=== PATIENT | female | born 1940 | race Caucasian/White ===

== ENCOUNTER 2019-11-05 13:46 | Outpatient (CLI) | payer MEDICARE, SELFPAY ==
--- NOTE | 2019-11-05 14:00 | MM_ITS ---
WS: [id number] BILATERAL DIGITAL SCREENING MAMMOGRAPHY WITH CAD CLINICAL INFORMATION: SCREEN HISTORY: Screening mammogram. No current complaints. COMPARISON: August 22, 2018 TECHNIQUE: Bilateral CC and MLO views. FINDINGS: Scattered fibroglandular densities bilaterally. No suspicious focal mass, asymmetry, calcifications, or architectural distortion. No evidence of malignancy. Benign calcification right breast. MM/[place] [id number] IMPRESSION: BI-RADS: 2-Benign FOLLOW UP: 1 Year Follow-up Recommend return to annual screening mammography.
== END 2019-11-05 13:47 | disposition home or self-care (01) ==
LOC: RADSHAW 13:53
PROVIDERS: PCP Family Medicine; Visit Provider Family Medicine
DX: Z12.31 Encounter for screening mammogram for malignant neoplasm of breast (principal)
CPT/HCPCS: 77067

== ENCOUNTER 2021-06-16 10:34 | Emergency (ER) | payer MEDICARE, SELFPAY ==
[2021-06-16 10:43] VITALS: BP 152/63; PULSE 75; RESP 15; O2SAT 98; BMI 24.4
--- NOTE | 2021-06-16 10:45 | ECG_ITS ---
[facility] Test Date: 2021-06-16 Pat Name: Sole Luna Department: Room: Gender: Female Genetics Physician: : [id number] Requested By: Romie Anders Order Number: [id number] Ernie MD: Em Núñez M.D. Measurements Intervals [place] Rate: 66 P: 24 MO: 126 QRS: -20 QRSD: 93 T: 15 QT: 377 QTc: 395 Interpretive Statements SINUS RHYTHM LOW QRS VOLTAGE IN PRECORDIAL LEADS [QRS DEFLECTION < 1.0 mV IN CHEST LEADS] INCOMPLETE RIGHT BUNDLE BRANCH BLOCK [90+ ms QRS DURATION, TERMINAL R IN V1/V2, 40+ ms S IN I/aVL/V4/V5/V6] MODERATE VOLTAGE CRITERIA FOR LVH, CONSIDER NORMAL VARIANT [MEETS CRITERIA IN ONE OF: R(aVL), S(V1), R(V5), R(V5/V6)+S(V1)] POSSIBLE ANTERIOR MYOCARDIAL INFARCTION , PROBABLY OLD [30 ms Q WAVE IN V3/V4, OR R < 0.2 mV IN V4] Compared to ECG 10/14/2014 13:40:15 Myocardial infarct finding now present Electronically Signed On 06-17-2021 7:33:43 REFRACTORY SPECIALIST by Em Núñez M.D. [id number]
--- NOTE | 2021-06-16 10:45 | XR_ITS ---
WS: [id number] XR shoulder RT min 2V* [id number] REASON FOR EXAM: pain FINDINGS: There is a deformity of the distal most right clavicle which may represent an old healed fracture. Cl inical correlation should be made. No significant arthropathic change in the acromioclavicular joints for age. A severe arthropathy is present in the glenohumeral joint with flattening of the medial margin of the humeral head and widening and splaying of the glenoid. There is extensive subchondral sclerosis and cystic change in the glenoid and humeral head. XR/XR shoulder RT min 2V* [id number] IMPRESSION: Abnormality of the distal right clavicle as above. Severe osteoarthritis of the right glenohumeral joint.
--- NOTE | 2021-06-16 10:45 | ED_ITS ---
HPI - General Adult General: Chief complaint: General Medical Stated complaint: R SIDE SHOULER & JAW PAIN Time Seen by Provider: 06/16/21 10:44 History of Present Illness: HPI narrative: 80-year-old female presents emergency room complaining of right shoulder pain states began in the scapula radiates up into the shoulder up into her neck and jaw at times and a little bit down her proximal humerus. Is mostly resolved now is reproducible with movement of the shoulder. Particularly when you AB duct or flex the shoulder. She cannot recall any trauma she has not had any heavy use of the shoulder recently. She has no known history of heart disease she has no associated shortness of breath chest pain nausea vomiting or diaphoresis with this episode. It began suddenly after she had been at the [employer] shop and then resolved she states it feels like a little achy now with attempts to move the shoulder through range of motion it is very reproducible. Onset (ago): minute(s) Location: right (Shoulder) Radiation: neck and proximal (Humerus) Severity: mild Quality: aching Pain Consistency: intermittent and now resolved Relieving factors: immobilization Exacerbating factors: movement Associated symptoms: Deny chest pain, confusion, cough, diaphoresis, decreased appetite, dyspnea, fevers/chills, headache(s), malaise, nausea, rash, palpitations, seizures, short of breath, syncope, vomiting or weakness Treatments prior to arrival: none Review of Systems Const: Denies: malaise or diaphoresis ENMT: Denies: throat pain, ear or mastoid pain, nasal discharge or nasal congestion Card: Denies: chest pain, palpitations or syncope Resp: Denies: dyspnea GI: Denies: nausea or vomiting : Denies: flank pain, difficulty voiding, dysuria, urinary frequency or urinary urgency Skin/Breast: Denies: rash Neuro: Denies: headache(s) or confusion PFS ED PFSH: Medical History (Updated 06/16/21 @ 11:37 by Romie Gramajo DO) Arthritis History of osteomyelitis Hypertension Thyroid disease Surgical History History of bladder repair surgery History of hysterectomy Family History Other Cancer Dementia Denies family history of Diabetes CAD (coronary artery disease) Clotting disorder Hyperlipidemia Psychiatric illness Chronic kidney disease (CKD) Suicide Anesthesia complication Bleeding disorder Family history of premature coronary artery disease Lung disease Hypertension Stroke Social History Second hand smoke exposure: No Alcohol intake: never Lives independently: Yes Household members: spouse Marital status: Current occupational status: retired Physical Exam Const: COMMON NORMALS: no acute distress GENERAL APPEARANCE: cooperative and comfortable ORIENTATION/CONSCIOUSNESS: Yes awake, Yes oriented to person, Yes oriented to place and Yes oriented to time HENMT: COMMON NORMALS: normocephalic, atraumatic and hearing grossly normal bilaterally HEAD & SCALP: normocephalic and atraumatic Neck/C-Spine: COMMON NORMALS: no JVD Resp: COMMON NORMALS: normal respiratory effort, No retractions, No use of accessory muscles and clear to auscultation bilaterally AUSCULTATION: clear to auscultation bilaterally Cardio: COMMON NORMALS: no JVD, regular rate, regular rhythm and No murmurs present (Cardio) RATE: regular rate RHYTHM: regular rhythm GI: COMMON NORMALS: Soft to palpation and No hepatosplenomegaly present AUSCULTATION: Yes normoactive bowel sounds PALPATION: Yes Soft to palpation, No Tenderness to palpation present (GI), No Guarding due to palpation present (GI) and Yes No hepatosplenomegaly present Extremity: COMMON NORMALS: normal to inspection, capillary refill normal, no clubbing, cyanosis or edema, no calf tenderness and no pedal edema Neuro: SENSORIUM/ORIENTATION: Yes oriented to person, Yes oriented to place and Yes oriented to time Skin: COMMON NORMALS: no rashes or lesions noted GENERAL SKIN EXAM: no rashes or lesions noted Course Vital Signs: Vital signs: Vital Signs Pulse Rate 66 06/16/21 12:03 Respiratory Rate 14 06/16/21 12:03 Blood Pressure 125/59 06/16/21 12:03 Pulse Oximetry 97 06/16/21 12:03 MDM - General Adult MDM Narrative: Medical decision making narrative: No acute fractures noted on the shoulder x-ray. There is significant arthritic changes and question of an old fracture in the medial aspect of the clavicle. She does not have any pain in that region at this time. [place] discharge her home encouraged her to use Aloxi cam she was previously prescribed follow-up with your primary care doctor through the office for further evaluation including potential advanced imaging or referral to Ortho as indicated. Discharge Plan Discharge Patient Disposition: Home Clinical Impression: Right shoulder pain Condition: Stable Prescriptions: No Action meloxicam 7.5 mg tablet 7.5 mg PO DAILY RF: 0 levothyroxine 50 mcg capsule 50 mcg PO DAILY RF: 0 pentoxifylline 400 mg tablet extended release 400 mg PO TID RF: 0 acetaminophen-codeine [Tylenol-Codeine #4] 300-60 mg tablet 1 tab PO BID RF: 0 lisinopril-hydrochlorothiazide 20-25 mg tablet 1 tab PO DAILY RF: 0 donepezil 5 mg tablet 5 mg PO DAILY RF: 0 triamcinolone acetonide 0.1 % cream 1 applic topical BID 30 Days Qty: 454 RF: 5 Discharge Orders: Discharge ED (Routine); Ordered 06/16/21 Ordered By: Romie Gramajo Referrals: Brian Norris MD [Primary Care Provider] - Discharge Diet: Usual diet Discharge Activity: Limit activity as instructed Patient Instructions: Opioid Safety Activity Restrictions/Additional Instructions: If shoulder pain persists follow-up with your primary care doctor for further evaluation. 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
[2021-06-16 12:03] VITALS: BP 125/59; PULSE 66; RESP 14; O2SAT 97
== END 2021-06-16 12:00 | disposition home or self-care (01) ==
PROVIDERS: Emergency Provider Family Medicine; PCP Family Medicine
DX: M25.511 Pain in right shoulder (principal); Z79.891 Long term (current) use of opiate analgesic
CPT/HCPCS: 73030; 93005; 99283

== ENCOUNTER → 2022-04-05 10:14 | Outpatient (BNVA) | payer MEDICARE, SELFPAY | PROVIDERS: PCP Family Medicine; Visit Provider Physician Assistant | DX: M17.0 Bilateral primary osteoarthritis of knee (principal) | CPT/HCPCS: 20610; 73560; 73565; 99203; 99204; J0702; J3490 ==

== ENCOUNTER → 2022-05-10 10:30 | Outpatient (BNVA) | payer MEDICARE, SELFPAY | PROVIDERS: PCP Family Medicine; Visit Provider Physician Assistant | DX: M17.0 Bilateral primary osteoarthritis of knee (principal) | CPT/HCPCS: 20610; 99213; J7318 ==

== ENCOUNTER → 2022-12-24 08:20 | Outpatient (BNVA) | payer MEDICARE, SELFPAY | PROVIDERS: PCP Family Medicine; Visit Provider Podiatrist Foot & Ankle Surgery | DX: I73.9 Peripheral vascular disease, unspecified (principal); L60.8 Other nail disorders; I87.2 Venous insufficiency (chronic) (peripheral); L60.2 Onychogryphosis | CPT/HCPCS: 11721 ==

== ENCOUNTER → 2022-12-28 10:14 | Outpatient (BNVA) | payer MEDICARE, SELFPAY | PROVIDERS: PCP Family Medicine; Visit Provider Student in an Organized Health Care Education/Training Program | DX: M17.11 Unilateral primary osteoarthritis, right knee (principal) | CPT/HCPCS: 73560; 73565; 99204 ==

== ENCOUNTER → 2023-01-28 17:10 | Outpatient (BNVA) | payer MEDICARE, SELFPAY | PROVIDERS: PCP Family Medicine; Visit Provider Student in an Organized Health Care Education/Training Program | DX: Z01.812 Encounter for preprocedural laboratory examination; M17.11 Unilateral primary osteoarthritis, right knee | CPT/HCPCS: 36415; 80053; 81001; 85025; 99214 ==

== ENCOUNTER 2023-02-11 14:56 | Outpatient (CLI) | payer MEDICARE, SELFPAY ==
--- NOTE | 2023-02-11 15:00 | CT_ITS ---
WS: [id number] CT RIGHT KNEE, NONCONTRAST TECHNIQUE: Noncontrast CT of the RIGHT knee to include the RIGHT hip and ankle. CLINICAL INFORMATION: DJD KNEE DLP: 991.[address] scans at [facility] use at least one of these dose optimization techniques: automated e xposure control; mA and/or kV adjustment per patient size (includes targeted exams where dose is matc hed to clinical indication); or iterative reconstruction. FINDINGS: Osteopenia. Moderate degenerative narrowing of both hips with hypertrophic changes right greater than left. Degenerative arthritis sacroiliac joints. A few slightly prominent inguinal lymph nodes likely reactive. Large right suprapatellar effusion. Advanced tricompartmental arthritis right knee with xlil-gt-wpvd articulation in the medial joint compartment. Subchondral sclerosis. Hypertrophic changes along the j oint line. Chondrocalcinosis. Hypertrophic patella. Lobulated popliteal cyst measuring 3.1 AP by 4.7 cm transverse. Vascular calcification. IMPRESSION: Images obtained for preoperative purposes.
== END 2023-02-11 14:57 | disposition home or self-care (01) ==
PROVIDERS: PCP Family Medicine; Visit Provider Student in an Organized Health Care Education/Training Program
DX: M17.11 Unilateral primary osteoarthritis, right knee (principal)
CPT/HCPCS: 73700

== ENCOUNTER 2023-02-22 16:05 | Outpatient (CLI) | payer MEDICARE, SELFPAY ==
[2023-02-22 16:15] LABS: Basophils # 0.1 10^3/uL (0.0-0.1); Basophils % 2.3 %; Eosinophils # 0.2 10^3/uL (0.0-0.8); Eosinophils % 3.1 %; Lymphocytes # 1.9 10^3/uL (0.8-4.8); Lymphocytes % 39.1 %; Mean Corpuscular HGB Conc 32.4 g/dL (30-55); Mean Corpuscular Hemoglobin 32.4 pg (27-33); Mean Platelet Volume 10.8 fL (7.4-10.4); Monocytes # 0.6 10^3/uL (0.2-0.9); Monocytes % 12.3 %; Neutrophils # 2.06 10^3/uL (1.8-7.7); Neutrophils % 42.4 %; Nucleated Red Blood Cells % 0.8 %; Platelet Count 348 10^3/cmm (157-399); Red Cell Distribution Width 19.7 % (12.1-15.1); White Blood Count 4.86 10^3/uL (3.29-11.43)
== END 2023-02-22 16:06 | disposition home or self-care (01) ==
PROVIDERS: PCP Family Medicine; Visit Provider Family Medicine
DX: Z01.89 Encounter for other specified special examinations (principal)
CPT/HCPCS: 85025

== ENCOUNTER 2023-03-25 13:02 | Outpatient (CLI) | payer MEDICARE, SELFPAY ==
--- NOTE | 2023-03-25 13:07 | XR_ITS ---
WS: [id number] SCREENING DEXA SCAN Jinni CLINICAL INFORMATION: POSTMENOPAUSAL COMPARISON: 2019 FINDINGS: The L1-L4 bone mineral density measures 1.180 g/cm2. This corresponds to a T score score of 0.0 and Z score of 1.8. Left femoral neck bone mineral density measures 0.703 g/cm2. This corresponds to a T score of -2.4 an d Z score of -0.4. Right femoral neck bone mineral density measures 0.647 g/cm2. This corresponds to a T score -2.9of an d Z score of -0.8. Mean femoral neck bone mineral density measures 0.675 g/cm2. This corresponds to a T score of -2.6 an d Z score of -0.6. IMPRESSION: Normal bone mineralization lumbar spine although likely spuriously elevated due to endplate sclerosis . Osteoporosis femoral necks at the lower end of the range. Patient's FRAX calculated 10 year probability for major osteoporotic fracture is 40.6% and osteoporot ic hip fracture is 30.0%. Bone mineral density lumbar spine increased 9.7% since 2019 although likely spuriously elevated due t o endplate sclerosis Bone mineral density femoral necks decreased -13.6%
== END 2023-03-25 13:03 | disposition home or self-care (01) ==
PROVIDERS: PCP Family Medicine; Visit Provider Family Medicine
DX: Z13.820 Encounter for screening for osteoporosis (principal); Z78.0 Asymptomatic menopausal state; M81.0 Age-related osteoporosis without current pathological fracture
CPT/HCPCS: 77080

== ENCOUNTER → 2023-04-22 08:09 | Outpatient (BNVA) | payer MEDICARE, SELFPAY | PROVIDERS: PCP Family Medicine; Visit Provider Podiatrist Foot & Ankle Surgery | DX: L60.8 Other nail disorders (principal); L60.2 Onychogryphosis; I73.9 Peripheral vascular disease, unspecified | CPT/HCPCS: 11721 ==

== ENCOUNTER 2023-04-26 13:39 | Outpatient (CLI) | payer MEDICARE, SELFPAY ==
--- NOTE | 2023-04-26 14:30 | CT_ITS ---
WS: [id number] CT RIGHT KNEE, NONCONTRAST DESMOND TECHNIQUE: Noncontrast CT of the RIGHT knee to include the RIGHT hip and ankle. CLINICAL INFORMATION: M17.11 - Unilateral primary osteoarthritis, right knee COMPARISON: CT 02/11/2023 DLP: 952.[address] scans at [facility] use at least one of these dose optimization techniques: automated e xposure control; mA and/or kV adjustment per patient size (includes targeted exams where dose is matc hed to clinical indication); or iterative reconstruction. FINDINGS: Osteopenia. Moderate degenerative arthritis both hips RIGHT greater than LEFT. Hypertrophic changes about the RIGHT hip. Normal pubic rami. A few sigmoid diverticuli. A few prominent inguinal lymph nodes likely reactive similar to previous. Large suprapatellar effusion. Chondrocalcinosis. Hypertrophic patella. Advanced arthritis RIGHT knee worse in the medial joint compartment with ktyd-vs-ahpn articulation. Hypertrophic change along the j oint line. Lobulated popliteal cyst measuring 5.4 x 3.1 cm. Vascular calcification. IMPRESSION: Images obtained for preoperative purposes.
== END 2023-04-26 13:40 | disposition home or self-care (01) ==
LOC: RAD 13:39
PROVIDERS: PCP Family Medicine; Visit Provider Student in an Organized Health Care Education/Training Program
DX: M17.11 Unilateral primary osteoarthritis, right knee (principal)
CPT/HCPCS: 73700

== ENCOUNTER 2023-05-06 15:48 | Observation (INO) | payer MEDICARE, SELFPAY ==
[2023-05-06] VITALS (16 sets, daily range): BP systolic 135–166; BP diastolic 62–88; PULSE 61–99; RESP 15–24; TEMP 36.1–37.3; O2SAT 93–100; BMI 23.3
[2023-05-06] MEDS: sodium chloride 0.9% 1,000 ML 30 ML IV (10:21)
[2023-05-06] MEDS: ketorolac 30 mg/mL INJ IVP (10:22)
[2023-05-06] MEDS: acetaminophen 1,000 MG/100 ML PIGGYBACK 400 MG IV ×2 (10:24→18:12)
[2023-05-06 10:38] LABS: Basophils # 0.1 10^3/uL (0.0-0.1); Basophils % 1.7 %; Eosinophils % 0.5 %; Hematocrit 30.8 % (36-47); Lymphocytes # 1.8 10^3/uL (0.8-4.8); Lymphocytes % 29.1 %; Mean Corpuscular HGB Conc 33.1 g/dL (30-55); Mean Corpuscular Hemoglobin 32.3 pg (27-33); Mean Corpuscular Volume 97.5 fl (85-98); Monocytes # 0.4 10^3/uL (0.2-0.9); Monocytes % 6.5 %; Neutrophils # 3.72 10^3/uL (1.8-7.7); Neutrophils % 61.9 %; Nucleated Red Blood Cells % 0 %; Platelet Count 365 10^3/cmm (157-399); Red Blood Count 3.16 10^6/uL (3.85-5.65); Red Cell Distribution Width 19.1 % (12.1-15.1); White Blood Count 6.01 10^3/uL (3.29-11.43)
[2023-05-06 10:41] LABS: Blood Urea Nitrogen 12 mg/dL (8-23); Calcium 9.4 mg/dL (8.5-10.5); Carbon Dioxide 25 mmol/L (22-29); Chloride 100 mmol/L (98-107); Glucose 110 mg/dL (65-115); Osmolality Calculated 280 mOsm/kg (285-295); Sodium 135 mmol/L (136-145)
[2023-05-06 10:43] LABS: Anion Gap 14.6 (5-19); Potassium 4.6 mmol/L (3.5-5.1)
[2023-05-06 10:56] LABS: Blood Urine Neg (Negative); Glucose Urine UA Norm (Normal); Ketones Urine Negative (Negative); Nitrate Urine Negative (Negative); Protein Urine Neg (Negative); Urine Appearance Clear (CLEAR); Urine Color Yellow (Yellow); pH Urine 8 (5-7)
[2023-05-06 10:57] LABS: Add Urine Culture? No; Add Urine Microscopic? YES; Bacteria Urine TRACE /hpf; Bilirubin Urine Neg (Negative); Leukocyte Esterase Urine Trace (Negative); Sulfosalicylic Acid Urine Negative (Negative); Urobilinogen Urine Norm (Negative)
--- NOTE | 2023-05-06 12:40 | P.ANESASSM_ITS ---
Pre-Anesthetic Assessment Height/Weight: Height 1.65 m Weight 63.503 kg Temp Pulse Resp BP Pulse Ox O2 Del Method 99.2 F 88 16 147/78 95 Room Air 05/06/23 10:01 05/06/23 10:01 05/06/23 10:01 05/06/23 10:01 05/06/23 10:01 05/06/23 10:07 Preop Diagnosis: Right knee degenerative joint disease Operation Date: 05/06/23 11:30 Proposed Procedures p Satish Robot Total Knee Arthroplasty: RIGHT KNEE ARTHROPLASTY WITH SATISH GUIDANCE(Right) - Ben Davila DO Familial anesthetic complications: none Was Beta Keon taken within 24 hours: N/A Was Clonidine taken within 24 hours: N/A Last intake: Intake Last Liquid Date 05/05/23 Last Liquid Time 19:00 Last Solid Date 05/05/23 Last Solid Time 19:00 Social No alcohol and No tobacco Exam alert, oriented x 3, clear to auscultation bilaterally and regular rate & rhythm Airway Submandibular: within normal limits Cervical ROM: within normal limits Mallampati: Class II Dentition: partials CV/HEM Anemia, Hypertension and Peripheral Vascular Disease Metabolic Thyroid [place] [facility] [place] Osteoarthritis/DJD Neuropsych memory issues Anesthetic Plan ASA status: 3 Anesthesia: Regional (specify below) (SAB with adductor blk) Medications/Allergies Home Medications Medication Instructions Recorded Confirmed Last Taken Type lisinopril 20 1 tab PO DAILY 08/04/19 05/03/23 05/04/23 History mg-hydrochlorothiazide 25 mg tablet (Zestoretic) meloxicam 7.5 mg tablet 7.5 mg PO DAILY 08/04/19 05/06/23 05/05/23 History donepezil 10 mg tablet 10 mg PO DAILY 02/20/23 05/06/23 05/04/23 History gabapentin 300 mg capsule 300 mg PO TID 02/20/23 05/06/23 05/05/23 History levothyroxine 25 mcg tablet 25 mcg PO DAILY 02/20/23 05/06/23 05/05/23 History Allergies Allergy/AdvReac Type Severity Reaction Status Date / Time erythromycin base Allergy Mild ALGY-Rash Verified 04/22/23 08:14 [From Erythrocin] Sulfa (Sulfonamide Allergy Mild ALGY-Rash Verified 04/22/23 08:14 Antibiotics) terbinafine Allergy Mild ADR-Insomni Verified 04/22/23 08:14 a tramadol Allergy Mild Unknown Verified 04/22/23 08:14 adhesive tape AdvReac Mild ADR-Nausea Verified 04/22/23 08:14 clindamycin AdvReac Mild ADR-Diarrhe Verified 04/22/23 08:14 a naproxen [From Naprosyn] AdvReac Mild ADR-Nausea Verified 04/22/23 08:14 Penicillins AdvReac Mild ADR-Nausea Verified 04/22/23 08:14 Current Medications Generic Name Dose Route Start Last Admin Trade Name Freq PRN Reason Stop Dose Admin Sodium Chloride 1,000 mls @ 30 mls/hr 05/06/23 10:00 05/06/23 10:21 Sodium Chloride 0.9% IV 05/07/23 09:59 30 mls/hr .Q24H HANANE Administration PFSH Anesthesia Medical History (Updated 05/06/23 @ 07:55 by Jah Zafar MD) Arthritis History of osteomyelitis Hypertension Macrocytic anemia Memory difficulty Thyroid disease Surgical History History of bladder repair surgery History of hysterectomy Family History Other Cancer Dementia Denies family history of Diabetes CAD (coronary artery disease) Clotting disorder Hyperlipidemia Psychiatric illness Chronic kidney disease (CKD) Suicide Anesthesia complication Bleeding disorder Family history of premature coronary artery disease Lung disease Hypertension Stroke Social History Smoking and tobacco/nicotine status: never used tobacco/nicotine Second hand smoke exposure: No Alcohol intake: never Substance/Drug Use: never Lives independently: Yes Household members: spouse Marital status: Current occupational status: retired Data Anesthesia 05/06/23 10:08 05/06/23 10:08 Short CBC 05/06/23 Range/Units 10:08 WBC 6.01 (3.29-11.43) 10^3/uL Hgb 10.20 L (11.27-16.99) g/dL Hct 30.8 L (36-47) % MCV 97.5 (85-98) fl Plt Count 365 (157-399) 10^3/cmm Neut % (Auto) 61.9 % Neut # (Auto) 3.72 (1.8-7.7) 10^3/uL BMP 05/06/23 10:08 Sodium 135 L Potassium 4.6 Chloride 100 Carbon Dioxide 25 BUN 12 Creatinine 0.8 Glucose 110 Calcium 9.4 Urine 05/06/23 Range/Units 09:55 Urine Color Yellow (Yellow) Urine Appearance Clear (CLEAR) Urine pH 8 H (5-7) Ur Specific [place] 1.010 (1.005-1.030) Urine Protein Neg (Negative) Urine Glucose (UA) Norm (Normal) Urine Ketones Negative (Negative) Urine Nitrate Negative (Negative) Urine Bilirubin Neg (Negative) Ur Leukocyte Esterase Trace H (Negative) Urine RBC None (0-2) /hpf Urine WBC 5-10 H (0-5) /hpf Blood Bank 05/06/23 10:09 Blood Type O Positive Rho(D) Type Positive Antibody Screen Negative Cardiac Studies: No Data to Display
[2023-05-06 12:51] LABS: Add Urine Microscopic? NO; Charge for UA Resulting for Rev
--- NOTE | 2023-05-06 12:52 | PC.NURSE ---
STRAIGHT CATH PERFORMED ON PT PER ORDERS. URINE COLLECTED AND SENT TO LAB. PT TOLERATED WELL, NO COMPLAINTS OF PAIN.
--- NOTE | 2023-05-06 13:13 | P.HP_ITS ---
Providers/Chief Complaint Admitting Physician: Ben Davila DO Primary Care Provider: Brian Norris MD Chief Complaint: 61562 M17.11 History of Present Illness Sole Luna is a 82 year old female presents today after being worked up in the outpatient setting for severe right knee degenerative joint disease. This point time she is here in the preoperative area with plan for undergoing a right total knee arthroplasty Satish robotic assisted she has been worked and c leared by her preoperative labs she has been medically optimized by her primary care provider. she has a clean UA with no urinary symptoms. At this point time she is ready to proceed with a right total knee arthroplasty. Denies any change in her overall health. Patient denies any fevers chills chest pain shortness of breath nausea or vomiting. Review of Systems General: Reports: 10 or more systems reviewed and unremarkable except in HPI and below Medications/Allergies Home Medications Medication Instructions Recorded Confirmed Last Taken Type lisinopril 20 1 tab PO DAILY 08/04/19 05/03/23 05/04/23 History mg-hydrochlorothiazide 25 mg tablet (Zestoretic) meloxicam 7.5 mg tablet 7.5 mg PO DAILY 08/04/19 05/06/23 05/05/23 History donepezil 10 mg tablet 10 mg PO DAILY 02/20/23 05/06/23 05/04/23 History gabapentin 300 mg capsule 300 mg PO TID 02/20/23 05/06/23 05/05/23 History levothyroxine 25 mcg tablet 25 mcg PO DAILY 02/20/23 05/06/23 05/05/23 History Allergies Allergy/AdvReac Type Severity Reaction Status Date / Time erythromycin base Allergy Mild ALGY-Rash Verified 04/22/23 08:14 [From Erythrocin] Sulfa (Sulfonamide Allergy Mild ALGY-Rash Verified 04/22/23 08:14 Antibiotics) terbinafine Allergy Mild ADR-Insomni Verified 04/22/23 08:14 a tramadol Allergy Mild Unknown Verified 04/22/23 08:14 adhesive tape AdvReac Mild ADR-Nausea Verified 04/22/23 08:14 clindamycin AdvReac Mild ADR-Diarrhe Verified 04/22/23 08:14 a naproxen [From Naprosyn] AdvReac Mild ADR-Nausea Verified 04/22/23 08:14 Penicillins AdvReac Mild ADR-Nausea Verified 04/22/23 08:14 PFSH Acute PFSH: Medical History (Updated 05/06/23 @ 07:55 by Jah Zafar MD) Arthritis History of osteomyelitis Hypertension Macrocytic anemia Memory difficulty Thyroid disease Surgical History History of bladder repair surgery History of hysterectomy Family History Other Cancer Dementia Denies family history of Diabetes CAD (coronary artery disease) Clotting disorder Hyperlipidemia Psychiatric illness Chronic kidney disease (CKD) Suicide Anesthesia complication Bleeding disorder Family history of premature coronary artery disease Lung disease Hypertension Stroke Social History Smoking and tobacco/nicotine status: never used tobacco/nicotine Second hand smoke exposure: No Alcohol intake: never Substance/Drug Use: never Lives independently: Yes Household members: spouse Marital status: Current occupational status: retired Vitals/I&O/Wt Last Vital Signs Temp 99.2 F 05/06/23 10:01 Pulse 88 05/06/23 10:01 Resp 16 05/06/23 10:01 BP 147/78 05/06/23 10:01 Pulse Ox 95 05/06/23 10:01 O2 Del Method Room Air 05/06/23 10:07 05/05/23 05/06/23 05/06/23 22:59 06:59 14:59 Intake Total 100 / 100 Balance 100 / 100 Weight last 48 hrs Weight 140 lb Physical Exam Narrative: Right knee Exam: ?ROM 15 to 120 degrees ?Patellar crepitus with ROM ?Medial joint line tenderness to palpation ?Lateral joint line tenderness to palpation ?Mild joint effusion ?Negative Angella's ?Negative Maximilian's ?15 degrees of Varus malalignment, correctable on exam ?Stable Varus and Valgus stress ?Gross motor sensory intact Resp: COMMON NORMALS: normal respiratory effort and No retractions Cardio: PERIPHERAL PULSES: dorsalis pedis present Data 05/06/23 10:08 05/06/23 10:08 A&P Assessment and plan (1) Right knee DJD: Qualifiers: Osteoarthritis type: primary Qualified Code(s): M17.11 - Unilateral primary osteoarthritis, right knee Plan N.p.o. since midnight Medically optimized by primary care provider Preoperative labs reviewed To proceed today to the OR for a right total knee arthroplasty Satish robotic assisted, will be admitted to the floor postoperatively. Attestations Medical Necessity Statement*: Status post right total knee arthroplasty Coding Level of Care Code Acute Code for Chg Fwd Diagnoses Right knee DJD M17.11 Osteoarthritis type: primary Time Spent (min) 45
[2023-05-06 13:36] LABS: Bilirubin Urine Neg (Negative); Blood Urine Neg (Negative); Glucose Urine UA Norm (Normal); Ketones Urine Negative (Negative); Leukocyte Esterase Urine Negative (Negative); Nitrate Urine Negative (Negative); Protein Urine Neg (Negative); Specific Gravity, Urine 1.005 (1.005-1.030); Urine Appearance Clear (CLEAR); Urine Color Yellow (Yellow); Urobilinogen Urine Norm (Negative); pH Urine 7 (5-7)
--- NOTE | 2023-05-06 13:43 | W.PM.OPSUD ---
Surgery/Procedure H&P Update DATE OF PROCEDURE: May 06, 2023 DATE H&P PERFORMED: 05/06/23 H&P UPDATE INFORMATION: I have reviewed H&P completed within last 30 days, I have examined patient prior to procedure and No changes to prior documentation CHANGES TO PREVIOUS DOCUMENTATION: Patient had new updated full H&P today. Overall patient's had been appropriately worked up for her anemia preoperatively and cleared by her primary care provider Dr. Norris at this point time she has been optimized we did get an updated UA today which ended up being clean on a second test that was straight catheterized. This point in time she has no urinary symptoms we talked about the ins and outs procedure risk benefits complication alternatives with surgery at this point in time she elects proceed with surgical intervention of a right total knee arthroplasty Satish robotic assisted. We will proceed with a right total knee arthroplasty today with admission of the to the hospital postoperatively for monitoring. PREOP DIAGNOSIS: Right knee degenerative joint disease PRIMARY INDICATION FOR PROCEDURE: Right knee degenerative joint disease PLANNED PROCEDURE: Operation Date: 05/06/23 11:30 Proposed Procedures p Satish Robot Total Knee Arthroplasty: RIGHT KNEE ARTHROPLASTY WITH SATISH GUIDANCE(Right) - Ben Davila DO
[2023-05-06] MEDS: ceFAZolin 2,000 MG in sodium chloride 0.9% (plus) 50 ML 100 MG IV ×2 (13:50→21:14)
[2023-05-06] MEDS: tranexamic acid 1,000 mg/10mL SDV 1000 MG IV (14:24)
--- NOTE | 2023-05-06 14:26 | ANES.PROC ---
Anesthesia Procedures Procedure/Date: 05/06/23 Nerve Block ^: Nerve Block 1: Main Anesthesia: spinal anesthesia block Time Out Performed: Yes Consent: requested by attending/covering physician, from patient, risks and benefits reviewed and patient agrees to proceed Nerve block location: adductor canal (right) Anesthesia monitors applied: pulse oximetry, EKG, BP cuff and oxygen Nerve block position: supine Anesthetic Used: ropivicaine 0.5% Amount of anesthesia used (mL): 20 Ultrasound used to: recognize landmarks Nerve Stimulator Used?: No Interscalene/Femoral BLK: 4 stimuplex 21 g needle used for position and inplane approach Injection: neg aspiration of heme Patient Tolerated Procedure: well Complications: none
[2023-05-06] MEDS: vancomycin 1,000 MG SDV 1000 MG XX (14:50)
[2023-05-06] MEDS: ROPivacaine 0.2% Premix 100 mL 200 MG INTRA-ARTI (14:50)
[2023-05-06] MEDS: ketorolac 30 mg/mL INJ XX (14:51)
[2023-05-06] MEDS: EPINEPHrine 1 mg/mL INJ XX (14:51)
[2023-05-06] MEDS: tranexamic acid 1,000 mg/10mL SDV 1000 MG XX (14:52)
--- NOTE | 2023-05-06 15:48 | W.PM.BPON ---
Date of Procedure: 05/06/2023 Surgeon: Ben Davila DO Line Production Cook(s): Pranav Davila PA-C Procedure(s) performed: Right total knee arthroplasty, Satish robotic assisted Findings of the procedure(s): Right knee degenerative joint disease and right total knee arthroplasty Satish robotic assisted surgery went as planned without complications Estimated blood loss: 25 cc Specimen(s) removed: Bone cuts from the femur and tibia and patella Post-operative diagnosis: Right knee degenerative joint disease
--- NOTE | 2023-05-06 15:50 | P.OP_ITS ---
Operative Report Date of procedure: May 06, 2023 Surgeon: Ben Davila DO Heater Mechanic: Pranav Davila PA-C: PA was necessary for execution and instrumentation of this case as well as to assist with retraction and protection of neurovascular structures and instrumentation and leg positioning. And assistance with wound closure Procedure: Preoperative diagnosis: Right knee severe degenerative joint disease post-op diagnosis: Same Procedure done: Right total knee arthroplasty, cemented?robotic assisted Satish Implants: [place] triathlon size 5 femur CR cemented right [place] triathlon size? 4 tibia universal baseplate cemented [place] triathlon symmetric patella size 36 mm Baron triathlon polyethylene 12mm Baron tibia stem 50 mm Surgeon: Ben Davila DO Estimated blood loss: 25 mL Tourniquet 67 minutes IV fluids: 1200 cc mL Urine output: 50mL Complications: None Condition: stable Disposition: floor Brief History: Patient is a 82-year-old female with with chronic right knee degenerative joint disease.? Patient has been worked up in the outpatient setting in the orthopedic office at this point time through shared decision making given [id number] ar thritis as well as failed conservative treatment, and pt would like to proceed with a right total knee arthroplasty.? Through shared decision making elected to proceed with surgical intervention for right total knee arthroplasty.? We talked about continued conservative treatment and surgical intervention as far as the risk benefits complications alternatives surgical and nonsurgical treatment opti ons.? At this point time understanding patient risks with surgery he agrees to proceed with surgical intervention.? Once again? risk with surgery include but are not limited to make it better make it worse blood clot, heart attack, stroke, on the table, infection, injury to nerves or vessels, persistent pain, arthrofibrosis, implant failure.? Understanding these risks patient agrees to proceed with surgical intervention consent was obtained in the office.? All questions answered. Procedure: Patient was seen and evaluated in the preoperative holding area.? Consent was reviewed and signed with patient with plan for right total knee arthroplasty.? All questions answered.? Correct extremity marked.? Patient seen and evaluated by the anesthesia department and once cleared for surgery was taken back to the operative suite.? Patient was placed into a supine position on the OR table.? All bony prominences were well-padded.? Patient was appropriately secured to the bed.? Patient underwent anesthesia per the anesthesia department.? Patient received spinal anesthesia and? Joy catheter was placed.? A nonsterile tourniquet was applied to the right thigh.? At this point in time a final timeout performed.? Patient received appropriate preoperative antibiotics and TXA. Next the right lower extremity was then prepped and draped in standard orthopedic fashion. Esmarch tourniquet was used exsanguinate the right lower extremity.? Tourniquet was insufflated to 250 mmHg. A standard anterior incision was made over midline of the knee.? Sharp scalpel excision through skin and subcutaneous tissue full-thickness skin flaps were made.? Fascia was elevated off of the extensor retinaculum was stable with medial parapatellar arthrotomy was then made.? The performed standard sequential releases.? Immediately on entry into the joint patient was found to have severe eburnated bone and tricompartmental arthritic changes noted.? With significant osteophyte formation.? Next the the patella was then stuffed and the knee was then flexed.?? Héctor was placed superiorly around the anterior aspect of the femur this was freed of synovium and I subsequently then placed by 2 femur pins to establish my femur arrays for the Satish robot.? These were then placed bicortically and? femur array was then appropriately secured with appropriate visualization.? Next attention was turned towards the tibial rays.? These were then drilled sequentially bicortically in parallel fashion and intraincisional.? I then placed my guide as well as my tibial array on in place.? This was appropriately secured and had excellent visualization with the Satish robot.? Next the tibial checkpoint as well as femur checkpoint were then placed.? At this point time I then subsequently established my head center as well as my medial lateral malleoli as well as my checkpoints.? Next utilizing standard Satish technology I then mapped out the appropriate points and confirmation points around the femur as well as the tibia in standard fashion.? Once this was then done I then removed all osteophytes in preparation for dynamic testing.? All osteophytes were removed as well as I removed the ACL and the PCL was excised due to its significant tearing and degeneration noted.? At this point time the knee was brought into full extension and we performed our standard evaluation of our gap balancing stressing his ligaments and extension as well as flexion appropriate adjustments were made to have appropriate gap balancing in both flexion and extension.? This plan for final counts.? We get a preoperative plan evaluating our implants which was a size 5femur and a size 4 tibia.? Next we brought in the Satish robot and sequentially made our femur cuts.? All excess bony cuts were then removed.? Finally we made our tibial cut.? Once this was done a standard PCL retractor was then placed into this position I excised the medial and lateral meniscus.? The tibial cut was then subsequently removed all excess bony debris was removed.? I then utilized a lamina mixer operator vacuum pan salt and remove the posterior osteophytes.? At this point time sized the tibia and confirmed this was a size 4.? I utilized our blunt probe to establish rotation of tibial implant.? Once this was done I then placed my tibia size 4 trial in appropriate position and then subsequently placed tibial pins to hold this into place placed a size 12 mm poly as well as a size 5 femur which was appropriately impacted in place knee was then subsequently brought into extension. 12 mm poly and this was stable with varus valgus stress in extension as well as had symmetrical translation when brought into flexion demonstrating symmetrical gaps. I had excellent balance gaps in flexion and extension with varus and valgus stresses.? At this point I was satisfied with these implants these were then verified and opened on the back table size 4 tibia, size 5 femur,? size 12 mm polythickness.? We did confirm appropriate gap balancing and stresses as well as alignment utilizing? Satish and were satisfied with this plan.? ?At this point time with my trials in place I then towel clip the patella everted this made appropriate measurements subsequently utilizing freehand technique performed by patellar resurfacing this was confirmed to be appropriate resection and subsequently sized to be a 36 mm symmetric.? My drill peg guides were then clamped and appropriate position and appropriate position in the patella for appropriate tracking and parallel with the joint.? Pegs were drilled trial implant was placed and the knee was then subsequently ranged and found to have excellent patellar tracking.? Femur pegs were then drilled.? Satisfied with our tibial placement rotation I then utilized the keel punch and prepped the tibia.? At this point time all of our trial implants were removed.? All checkpoints as well as guidepins and arrays were removed and appropriate counts made.? The wound bed? was thoroughly irrigated and dried and prepped for cementation.? Cement was mixed on the back table.? We did elect to use a small short stem on the tibia just given patient's age and soft bone quality. Once cement was ready this was then covered onto the tibia and the tibial baseplate was then impacted and all excess cement was removed.? Next the polyethylene was then impacted into place on the tibial baseplate.? Next cement was placed onto the femur as well as under the femur implants and impacted in to place and all excess cement was extruded and removed.? Knee was taken into full extension? to clear all excess cement was removed.? Warm saline was placed over the joint.? I then towel clip patella and dried for cementation. cemented the patella into place.? This was all clamped and the cement was allowed to cure.? Thorough irrigation performed with pulse lavage.? I then placed my periarticular injection while the cement was curing.? Once cured the knee was taken through range of motion and had excellent stability and gaps were balanced in flexion and extension.? Tourniquet was then deflated. hemostasis satisfactory with electrocautery. Vancomycin powder was placed. next I then subsequently closed the capsule with Ethibond suture as well as a running strata fix suture.? Knee was then taken through range of motion 30 times.? Next the skin was then closed in layered fashion of running stratifix sutures of deep and subcutenous tissue and skin.? ?closed in flexion and Prineo glue was then placed over the incision this allowed to cure.? Incision was covered with Silverlon, with ABDs soft roll and Gabe wrap.? Patient was then awakened from anesthesia and taken to PACU in stable condition. Disposition: Patient taken to PACU in stable condition will be admitted to the floor for pain control PT/OT weight-bear as tolerated right lower extremity dressing changes as needed, DVT prophylaxis. Pain control. Patient will receive appropriate postoperative antibiotics. patient will be seen today by the internal medicine team for medical management.? Patient will follow up with the office in 2 weeks.? Patient understands agrees with current plan.? All questions answered.
--- NOTE | 2023-05-06 16:18 | XRR_ITS ---
PROCEDURE INFORMATION: Exam: XR Right Knee Exam date and time: 05/06/2023 5:27 PM Age: 82 years old Clinical indication: Device placement; Joint replacement hardware; Prior surgery; Surgery date: Post-operative (0-2 days); Surgery type: Right tka; Additional info: Status post right tka, ap and lateral TECHNIQUE: Imaging protocol: Radiologic exam of the right knee. Views: 1 or 2 views. COMPARISON: CT knee RT DESMOND 04/26/2023 2:12 PM FINDINGS: Bones/joints: Sequela of recently placed right total knee arthroplasty in expected alignment. Soft tissues: Soft tissue swelling and gas along the anterior knee consistent with recent surgical procedure. XR/XR knee RT 1-2V [id number] IMPRESSION: Sequela of recent right total knee arthroplasty placement in expected alignment.
--- NOTE | 2023-05-06 16:27 | PM.PACU ---
PACU note Narrative: Patient is an 82-year-old female that just underwent a right total knee arthroplasty. Pt transferred to PACU in stable condition. Dressing is dry. pt is awake and alert. unable to assess sensation and motor of right lower extremity due to residual spinal anesthetic. Distal pulses are palpable toes are warm and well-perfused. Cap refill is normal and under 2 seconds. Pain is controlled. Exam: awake Disposition: admitted
--- NOTE | 2023-05-06 16:49 | P.CONIM_ITS ---
Providers/Reason For Consult Consulting Physician/Specialty*: ortho Reason for Consult*: medical managment Attending Physician: Ben Davila DO Primary Care Provider: Brian Norris MD History of Present Illness History of Present Illness Sole Luna is a 82 year old female with a past medical history of macrocytic anemia, hypertension, hypothyroidism, who presents to [facility] for right knee surgery, hospital stay was consulted for postoperative m anagement, hypertension, hypothyroidism, history of anemia, patient tells me that Dr. Norris has been working her up for anemia, she denies any bloody or black stools, no hemoptysis, no lightheadedness, dizziness, she tells her that she had a transfusion of blood when she was in her 20s, she never had any transfusions since then, she does not take any iron tablets, no history of iron deficiency anemia, she has never had a colonoscopy or an EGD in her life, denies a history of GI bleeds, denies history of strokes, no history of CAD, no chest pain, palpitations, no shortness of breath, abdominal pain, Review of Systems Const: Denies: fever(s) Card: Denies: chest pain Resp: Denies: dyspnea GI: Denies: abdominal pain Neuro: Denies: headache(s) Medications/Allergies Home Medications Medication Instructions Recorded Confirmed Last Taken Type lisinopril 20 1 tab PO DAILY 08/04/19 05/03/23 05/04/23 History mg-hydrochlorothiazide 25 mg tablet (Zestoretic) meloxicam 7.5 mg tablet 7.5 mg PO DAILY 08/04/19 05/06/23 05/05/23 History donepezil 10 mg tablet 10 mg PO DAILY 02/20/23 05/06/23 05/04/23 History gabapentin 300 mg capsule 300 mg PO TID 02/20/23 05/06/23 05/05/23 History levothyroxine 25 mcg tablet 25 mcg PO DAILY 02/20/23 05/06/23 05/05/23 History Allergies Allergy/AdvReac Type Severity Reaction Status Date / Time erythromycin base Allergy Mild ALGY-Rash Verified 04/22/23 08:14 [From Erythrocin] Sulfa (Sulfonamide Allergy Mild ALGY-Rash Verified 04/22/23 08:14 Antibiotics) terbinafine Allergy Mild ADR-Insomni Verified 04/22/23 08:14 a tramadol Allergy Mild Unknown Verified 04/22/23 08:14 adhesive tape AdvReac Mild ADR-Nausea Verified 04/22/23 08:14 clindamycin AdvReac Mild ADR-Diarrhe Verified 04/22/23 08:14 a naproxen [From Naprosyn] AdvReac Mild ADR-Nausea Verified 04/22/23 08:14 Penicillins AdvReac Mild ADR-Nausea Verified 04/22/23 08:14 Current Medications Generic Name Dose Route Start Last Admin Trade Name Freq PRN Reason Stop Dose Admin Sodium Chloride 1,000 mls @ 30 mls/hr 05/06/23 10:00 05/06/23 15:54 Sodium Chloride 0.9% IV 05/07/23 09:59 Infused .Q24H HANANE Infusion PFSH Acute PFSH: Medical History Arthritis History of osteomyelitis Hypertension Macrocytic anemia Memory difficulty Thyroid disease Surgical History History of bladder repair surgery History of hysterectomy Family History Other Cancer Dementia Denies family history of Diabetes CAD (coronary artery disease) Clotting disorder Hyperlipidemia Psychiatric illness Chronic kidney disease (CKD) Suicide Anesthesia complication Bleeding disorder Family history of premature coronary artery disease Lung disease Hypertension Stroke Social History Smoking and tobacco/nicotine status: never used tobacco/nicotine Second hand smoke exposure: No Alcohol intake: never Substance/Drug Use: never Lives independently: Yes Household members: spouse Marital status: Current occupational status: retired Vitals/I&O/Wt Last Vital Signs Temp 97.3 F L 05/06/23 16:29 Pulse 90 05/06/23 16:39 Resp 22 H 05/06/23 16:39 BP 166/62 05/06/23 16:39 Pulse Ox 100 05/06/23 16:39 O2 Del Method Room Air 05/06/23 16:39 05/06/23 05/06/23 05/06/23 06:59 14:59 22:59 Intake Total 150 / 150 1250 / 1400 Output Total 75 / 75 Balance 150 / 150 1175 / 1325 Weight last 48 hrs Weight 63.503 kg Physical Exam Const: COMMON NORMALS: no acute distress and patient oriented x3 HENMT: COMMON NORMALS: normocephalic HEAD & SCALP: normocephalic Eye: OTHER: Right eyelid drooping, chronic, patient tells me Resp: COMMON NORMALS: normal respiratory effort, No retractions, No use of ac cessory muscles and clear to auscultation bilaterally AUSCULTATION: clear to auscultation bilaterally Cardio: COMMON NORMALS: regular rate, regular rhythm, S1 normal heart sound present and S2 normal heart sound present RATE: regular rate RHYTHM: regular rhythm HEART SOUNDS: S1 normal heart sound present and S2 normal heart sound present GI: COMMON NORMALS: Normal to inspection, nondistended, normoactive bowel sounds present and non-tender Extremity: COMMON NORMALS: no pedal edema Neuro: COMMON NORMALS: patient oriented x3, CN's II-XII intact bilaterally, moves all extremities and no focal motor deficits Psych: COMMON NORMALS: mental status grossly normal Urinary Catheter Management: Joy: Cath Placed During This Visit: yes Urinary Catheter Date of Insertion: 05/06/23 Urinary Catheter Time of Insertion: 14:25 Data 05/06/23 10:08 05/06/23 10:08 A&P Assessment and plan (1) Macrocytic anemia: (2) Hypertension: Qualifiers: Hypertension type: primary hypertension Qualified Code(s): I10 - Essential (primary) hypertension (3) Right knee DJD: Qualifiers: Osteoarthritis type: primary Qualified Code(s): M17.11 - Unilateral primary osteoarthritis, right knee Plan Right knee degenerative joint disease, status post right knee total arthroplasty, ? Pain control and anticoagulation as per orthopedic team, ? PT OT, ? Current Joy catheter in place Hypothyroidism continue levothyroxine, hypertension, continue blood pressure medication History of anemia, has history of microcytic anemia, iron studies, Hemoccult stool, no blood or black stools, no lightheadedness, history of iron deficiency no history of blood transfusions, no history of GI bleeds, will continue to monitor hemoglobin closely Eliquis ready to prophylaxis, Consult Attestations Medical Necessity Statement: Patient requires hospitalization for right knee total arthroplasty and High MDM includes number and complexity of problems actively addressed during encounter, amount and/or complexity of data reviewed/ordered and described risk of complication, morbidity or mortality of management as documented Diagnoses Macrocytic anemia D53.9 Hypertension I10 Hypertension type: primary hypertension Right knee DJD M17.11 Osteoarthritis type: primary
--- NOTE | 2023-05-06 16:57 | ANE.PACU2 ---
Inpatient post-anesthesia follow up: Airway intact: Yes Vital signs: Temperature 97.3 F Pulse Rate 90 Respiratory Rate 22 Blood Pressure 166/62 Pulse Oximetry 100 Oxygen Delivery Me thod Room Air Oxygen Flow Rate Fraction of Inspir ed Oxygen Hydration adequate: Yes Nausea and vomiting: No Pain level: 1 Mental status: Baseline
[2023-05-06] MEDS: tranexamic acid 1,000 MG/100 ML PREMIX 600 MG IV (18:02)
[2023-05-06] MEDS: docusate sodium 100 mg Capsule PO (18:10)
[2023-05-06] MEDS: iron polysaccharide complex 150 mg Capsule PO (18:10)
[2023-05-06] MEDS: calcium carb-vit d 600mg/400unit 1 Tablet 1 EACH PO (18:10)
[2023-05-06] MEDS: chlorhexidine gluconate 0.12% Btl 473 mL 30 ML MUCOUS MEM ×2 (18:11→21:14)
[2023-05-06] MEDS: mupirocin oint 22 gm 1 APPLIC NASAL (18:11)
[2023-05-06] MEDS: lactated ringers 1,000 ML 100 ML IV (18:13)
[2023-05-06 18:29] LABS: Ferritin 252 ng/mL (15-150); Iron 105 ug/dL (37-145); Thyroid Stimulating Hormone 1.43 uIU/mL (0.27-4.20); Vitamin B12 532 pg/mL (232-1245)
[2023-05-06] MEDS: oxyCODONE 5 mg IR Tab/Cap PO (19:33)
[2023-05-06 20:18] LABS: Percent Saturation 34.6 % (20-50); Total Iron Binding Capacity 303 mcg/dl; Unsaturated Iron Binding 198 ug/dL (112-347)
[2023-05-06] MEDS: HYDROmorphone 1 mg/mL INJ 1 mL 0.5 MG IVP (20:51)
[2023-05-06] MEDS: gabapentin 300 mg Capsule PO (21:14)
[2023-05-06 22:01] LABS: Glucose Point of Care 134 mg/dL (70-110)
[2023-05-06 23:03] LABS: Folate Level > 20.0 ng/mL (4.8-37.3)
[2023-05-07] VITALS (8 sets, daily range): BP systolic 106–151; BP diastolic 62–79; PULSE 77–92; RESP 16–18; TEMP 36.9–37.3; O2SAT 94–99
[2023-05-07] MEDS: acetaminophen 1,000 MG/100 ML PIGGYBACK 400 MG IV ×2 (02:38→09:50)
[2023-05-07] MEDS: lactated ringers 1,000 ML 100 ML IV (05:17)
[2023-05-07] MEDS: ceFAZolin 2,000 MG in sodium chloride 0.9% (plus) 50 ML 100 MG IV (05:18)
[2023-05-07] MEDS: oxyCODONE 5 mg IR Tab/Cap PO ×3 (05:20→15:31)
[2023-05-07 05:45] LABS: Basophils # 0.1 10^3/uL (0.0-0.1); Basophils % 0.8 %; Eosinophils # 0.1 10^3/uL (0.0-0.8); Eosinophils % 0.7 %; Hematocrit 24.3 % (36-47); Lymphocytes # 1.5 10^3/uL (0.8-4.8); Lymphocytes % 14.7 %; Mean Corpuscular HGB Conc 32.1 g/dL (30-55); Mean Corpuscular Hemoglobin 32.5 pg (27-33); Mean Corpuscular Volume 101.3 fl (85-98); Mean Platelet Volume 11.8 fL (7.4-10.4); Monocytes # 0.8 10^3/uL (0.2-0.9); Monocytes % 7.7 %; Neutrophils # 7.45 10^3/uL (1.8-7.7); Neutrophils % 75.7 %; Nucleated Red Blood Cells % 0 %; Platelet Count 261 10^3/cmm (157-399); Red Cell Distribution Width 19.8 % (12.1-15.1); White Blood Count 9.85 10^3/uL (3.29-11.43)
[2023-05-07 06:02] LABS: Slide Review Slide Review Perform
[2023-05-07 06:04] LABS: Anion Gap 13.3 (5-19); Blood Urea Nitrogen 15 mg/dL (8-23); Carbon Dioxide 24 mmol/L (22-29); Chloride 104 mmol/L (98-107); Glucose 115 mg/dL (65-115); Osmolality Calculated 286 mOsm/kg (285-295); Potassium 4.3 mmol/L (3.5-5.1); Sodium 137 mmol/L (136-145)
[2023-05-07 06:29] LABS: Glucose Point of Care 113 mg/dL (70-110)
[2023-05-07] MEDS: levothyroxine 25 mcg Tablet PO (08:10)
[2023-05-07] MEDS: calcium carb-vit d 600mg/400unit 1 Tablet 1 EACH PO (08:10)
[2023-05-07] MEDS: hydroCHLOROthiazide 25 mg Tablet PO (08:10)
[2023-05-07] MEDS: docusate sodium 100 mg Capsule PO (08:10)
[2023-05-07] MEDS: gabapentin 300 mg Capsule PO (08:10)
[2023-05-07] MEDS: multivitamin therapeutic Tablet 1 TAB PO (08:10)
[2023-05-07] MEDS: iron polysaccharide complex 150 mg Capsule PO (08:10)
[2023-05-07] MEDS: donepezil 5 MG Tablet 10 MG PO (08:10)
[2023-05-07] MEDS: mupirocin oint 22 gm 1 APPLIC NASAL (08:11)
[2023-05-07] MEDS: lisinopril 20 mg Tablet PO (08:11)
[2023-05-07] MEDS: chlorhexidine gluconate 0.12% Btl 473 mL 30 ML MUCOUS MEM (08:12)
[2023-05-07] MEDS: apixaban 5 mg Tablet 2.5 MG PO (09:50)
--- NOTE | 2023-05-07 09:59 | PC.CHAP ---
Pastoral Care Encounter/Spiritual Assessment Type of Contact [] Declined plugman visit [] Patient/Family/Request visit [] Outpatient visit [] Follow-up visit [] Physician referral [] Code/Alert [x] Routine visit [] Staff referral [] Actively dying [] Patient sleeping [x] Family support [] [] Out of room [] Palliative care [] [] Receiving care in room [] Pre-surgical visit [] Trauma [] Long length of stay [] ICU visit [] Other: Relational/Emotional Strength [x] Patient feels connected with others/family/visitors/staff [] Distress [] Loneliness/isolation [] Abandonment Spirituality of Patient [x] Person of [place] [x] Attends Mormon of their [place] [x] Believes in Prayer [] Reads Bible or Caodaism materials [] There are Spiritual issues to be addressed Supervisor Cell Efficiency Interventions [x] Prayer [x] Active listening [] Non-anxious presence [x] Spiritual/emotional support [] Crisis/trauma care [] Spiritual counseling [] Bereavement support [] Provided bereavement packet [] Provided Bible/devotional materials [] Provided toy/stuffed animal, coloring book to patient or family member [] Provided Communion [] Anointing/[place] [] Salvation [x] Completed spiritual assessment [] Other: Impact on Illness or Injury [] Angry [] Fearful [] Anxious [] Often cries [] Exhaustion [] Unable to work [] Unable to attend zoroastrian [] Unable to walk/stand [] Unable to read [] Unable to drive [] Unable to eat/drink [] Unable to sleep [] Unable to be with family [] Patient intubated [] Other: Summary Time spent with patient 5 min
--- NOTE | 2023-05-07 11:27 | PM.PN ---
Subjective Subjective: Patient was seen this morning, she is alert awake, follows all commands, she tells me that her pain is minimal this morning, she wants to go home at noon, I advised her that I think is reasonable as long as her hemoglobin remained stable, hemoglobin is 7.8, she denies any bloody or black stools, no lightheadedness, no dizziness, surgical site is wrapped, and a binder, Vitals/I&O/Wt Last Vital Signs Temp 98.7 F 05/07/23 08:51 Pulse 92 05/07/23 08:51 Resp 18 05/07/23 09:49 BP 147/69 05/07/23 08:51 Pulse Ox 99 05/07/23 08:51 O2 Del Method Room Air 05/07/23 08:51 05/06/23 05/07/23 05/07/23 22:59 06:59 14:59 Intake Total 1500 / 1650 1150 / 2800 480 / 480 Output Total 325 / 325 200 / 525 Balance 1175 / 1325 950 / 2275 480 / 480 Weight last 48 hrs Weight 63.503 kg Physical Exam Const: COMMON NORMALS: no acute distress and patient oriented x3 Neck/C-Spine: COMMON NORMALS: no JVD Resp: COMMON NORMALS: normal respiratory effort, No retractions, No use of accessory muscles and clear to auscultation bilaterally AUSCULTATION: clear to auscultation bilaterally Cardio: COMMON NORMALS: no JVD, regular rate, regular rhythm, S1 normal heart sound present and S2 normal heart sound present RATE: regular rate RHYTHM: regular rhythm HEART SOUNDS: S1 normal heart sound present and S2 normal heart sound present GI: COMMON NORMALS: Normal to inspection, nondistended, normoactive bowel sounds present and non-tender Extremity: COMMON NORMALS: no pedal edema Neuro: COMMON NORMALS: patient oriented x3 Psych: COMMON NORMALS: mental status grossly normal Urinary Catheter Management: Joy: Cath Placed During This Visit: yes, but has since been removed by the nurse Reason for Continuing Indwelling Catheter: Required Immobilization for Trauma or Surgery or Anesthesia Urinary Catheter Date of Insertion: 05/06/23 Urinary Catheter Time of Insertion: 14:25 Date Urinary Catheter Removed: 05/07/23 Time Urinary Catheter Discontinued: 05:30 Data 05/07/23 05:08 11/07/23 05:08 A&P Assessment and plan (1) Macrocytic anemia: (2) Hypertension: Qualifiers: Hypertension type: primary hypertension Qualified Code(s): I10 - Essential (primary) hypertension (3) Right knee DJD: Qualifiers: Osteoarthritis type: primary Qualified Code(s): M17.11 - Unilateral primary osteoarthritis, right knee Plan Right knee degenerative joint disease, status post right knee total arthroplasty, ? Pain control and anticoagulation as per orthopedic team, ? PT OT, Hypothyroidism continue levothyroxine, hypertension, continue blood pressure medication History of anemia, has history of microcytic anemia, iron studies, Hemoccult stool, no blood or black stools, no lightheadedness, history of iron deficiency no history of blood transfusions, no history of GI bleeds, will continue to monitor hemoglobin closely Eliquis ready to prophylaxis, Attestations Medical Necessity Statement*: Patient can be discharged today as long as her hemoglobin remained stable, if it drops further below 7.8 she likely will require inpatient monitoring Diagnoses Macrocytic anemia D53.9 Hypertension I10 Hypertension type: primary hypertension Right knee DJD M17.11 Osteoarthritis type: primary
[2023-05-07 12:33] LABS: Glucose Point of Care 125 mg/dL (70-110)
[2023-05-07 12:55] LABS: Hematocrit 26.5 % (36-47)
--- NOTE | 2023-05-07 13:48 | PM.DCS ---
Discharge Providers Date of Admission: 05/06/23 15:48 Date of Discharge: May 07, 2023 Attending Provider at Admission: Ben Davila DO Attending Provider at Discharge: Ben Davila DO Consults: Hospitalist?Dr. Calles Primary Care Provider: Brian Norris MD Diagnoses at Discharge Discharge Diagnosis (1) Macrocytic anemia: Status: Acute (2) Hypertension: Status: Acute Qualifiers: Hypertension type: primary hypertension Qualified Code(s): I10 - Essential (primary) hypertension (3) Right knee DJD: Status: Resolved Qualifiers: Osteoarthritis type: primary Qualified Code(s): M17.11 - Unilateral primary osteoarthritis, right knee Reason for Visit Reason for Visit: 64151 M17.11 Brief History: Status post right total knee arthroplasty Hospital Course Hospital Course Patient presented to the preoperative holding area with plan for right total knee arthroplasty after patient has been worked up in the outpatient setting for failed conservative treatment of right knee degenerative joint disease.? Once cleared by anesthesia for surgery patient subsequently was taken back to the operative suite? underwent? anesthesia per anesthesia department and then subsequently underwent a right total knee arthroplasty.? Procedure was performed without any complications patient was taken to PACU in stable condition patient? recovered well in PACU and then was admitted to the floor postoperatively internal medicine was consulted and on board for medical management and assistance with care.? Patient received appropriate PT/OT, postoperative antibiotics, postoperative TXA, pain control, postoperative DVT prophylaxis.? Elevation and ice.? Patient encouraged for knee range of motion allowed weightbearing as tolerated to the operative lower extremity.? Dressing was changed as needed, labs were monitored daily.?? Patient recovered well postoperatively and worked well and progressed well with therapy.? It was determined on postoperative day 1 the patient was stable for discharge from an orthopedic standpoint and medicine.? Patient was comfortable with discharge and plan was discharged home.? Patient received appropriate discharge instructions as well as pain medication and DVT prophylaxis postoperatively.? Given appropriate instructions for? dressing management.? Patient will follow-up with Dr. Davila/orthopedics in the office in 2 weeks.? All questions answered.? Understand if there is any issues questions or concerns and contact the office. Physical Exam Narrative: Right lower extremity examination: Examination the right lower extremity patient's toes warm well-perfused brisk capillary refill less than 2 seconds. Patient able to wiggle toes plantarflex and dorsiflex ankle. Dressings on in place is clean dry and intact no signs of bleeding or saturation compartments are soft compressible calf soft and nontender. Sensation intact light touch distally. Urinary Catheter Management: Joy: Cath Placed During This Visit: yes, but has since been removed by the nurse Reason for Continuing Indwelling Catheter: Required Immobilization for Trauma or Surgery or Anesthesia Urinary Catheter Date of Insertion: 05/06/23 Urinary Catheter Time of Insertion: 14:25 Date Urinary Catheter Removed: 05/07/23 Time Urinary Catheter Discontinued: 05:30 Discharge Data Studies Completed and Pending Completed Studies During Hospitalization Category Date Time Status XR knee RT 1-2V [id number] Routine Exams 05/06/23 16:18 Completed Pending at discharge Category Date Time Status Basic Metabolic Panel AM LABS Lab 05/08/23 04:00 Ordered Basic Metabolic Panel AM LABS Lab 05/09/23 04:00 Ordered Complete Blood Count w/Auto AM LABS Lab 05/08/23 04:00 Ordered Complete Blood Count w/Auto AM LABS Lab 05/09/23 04:00 Ordered Occult Blood Stool [Immunochemical Fecal OCB] Routine Lab 05/06/23 17:26 Uncollected Radiology Impressions Knee X-Ray 05/06/23 16:18 IMPRESSION: Sequela of recent right total knee arthroplasty placement in expected alignment. Laboratory Results WBC 9.85 10^3/uL (3.29-11.43) 05/07/23 05:08 RBC 2.40 10^6/uL (3.85-5.65) L 05/07/23 05:08 Hgb 8.60 g/dL (11.27-16.99) L 05/07/23 12:27 Hct 26.5 % (36-47) L 05/07/23 12:27 MCV 101.3 fl (85-98) H 05/07/23 05:08 MCH 32.5 pg (27-33) 05/07/23 05:08 MCHC 32.1 g/dL (30-55) 05/07/23 05:08 RDW 19.8 % (12.1-15.1) H 05/07/23 05:08 Plt Count 261 10^3/cmm (157-399) 05/07/23 05:08 MPV 11.8 fL (7.4-10.4) H 05/07/23 05:08 Neut % (Auto) 75.7 % 05/07/23 05:08 Lymph % (Auto) 14.7 % 05/07/23 05:08 [place] % (Auto) 7.7 % 05/07/23 05:08 Eos % (Auto) 0.7 % 05/07/23 05:08 Baso % (Auto) 0.8 % 05/07/23 05:08 Neut # (Auto) 7.45 10^3/uL (1.8-7.7) 05/07/23 05:08 Lymph # (Auto) 1.5 10^3/uL (0.8-4.8) 05/07/23 05:08 [place] # (Auto) 0.8 10^3/uL (0.2-0.9) 05/07/23 05:08 Eos # (Auto) 0.1 10^3/uL (0.0-0.8) 05/07/23 05:08 Baso # (Auto) 0.1 10^3/uL (0.0-0.1) 05/07/23 05:08 Nucleated RBC % (auto) 0 % 05/07/23 05:08 Nucleated RBCs # 0.0 /100WBC 05/07/23 05:08 Sodium 137 mmol/L (136-145) 05/07/23 05:08 Potassium 4.3 mmol/L (3.5-5.1) 05/07/23 05:08 Chloride 104 mmol/L (98-107) 05/07/23 05:08 Carbon Dioxide 24 mmol/L (22-29) 05/07/23 05:08 Anion Gap 13.3 (5-19) 05/07/23 05:08 BUN 15 mg/dL (8-23) 05/07/23 05:08 Creatinine 0.8 mg/dL (0.5-0.9) 05/07/23 05:08 GFR Calculation Not Reportable 05/07/23 05:08 Glucose 115 mg/dL (65-115) 05/07/23 05:08 POC Glucose 125 mg/dL (70-110) H 05/07/23 12:16 Calculated Osmolality 286 mOsm/kg (285-295) 05/07/23 05:08 Calcium 9.0 mg/dL (8.5-10.5) 05/07/23 05:08 Iron 105 ug/dL (37-145) 05/06/23 10:08 TIBC 303 mcg/dl 05/06/23 10:08 % Saturation 34.6 % (20-50) 05/06/23 10:08 Unsat Iron Binding 198 ug/dL (112-347) 05/06/23 10:08 Ferritin 252 ng/mL (15-150) H 05/06/23 10:08 Vitamin B12 532 pg/mL (232-1245) 05/06/23 10:08 Folate > 20.0 ng/mL (4.8-37.3) 05/06/23 19:11 TSH 1.43 uIU/mL (0.27-4.20) 05/06/23 10:08 Urine Color Yellow (Yellow) 05/06/23 11:40 Urine Appearance Clear (CLEAR) 05/06/23 11:40 Urine pH 7 (5-7) 05/06/23 11:40 Ur Specific [place] 1.005 (1.005-1.030) 05/06/23 11:40 Urine Protein Neg (Negative) 05/06/23 11:40 Urine Glucose (UA) Norm (Normal) 05/06/23 11:40 Urine Ketones Negative (Negative) 05/06/23 11:40 Urine Blood Neg (Negative) 05/06/23 11:40 Urine Nitrate Negative (Negative) 05/06/23 11:40 Urine Bilirubin Neg (Negative) 05/06/23 11:40 Prot Sulfosalicylic Acd Negative (Negative) 05/06/23 09:55 Urine Urobilinogen Norm mg/dL (Negative) 05/06/23 11:40 Ur Leukocyte Esterase Negative (Negative) 05/06/23 11:40 Urine RBC None /hpf (0-2) 05/06/23 09:55 Urine WBC 5-10 /hpf (0-5) H 05/06/23 09:55 Ur Squamous Epith Cells 5-10 /hpf (0-5) H 05/06/23 09:55 Amorphous Sediment Not Reportable 05/06/23 09:55 Urine Bacteria Trace /hpf (NONE) 05/06/23 09:55 Blood Type O Positive 05/06/23 10:09 Rho(D) Type Positive 05/06/23 10:09 Antibody Screen Negative 05/06/23 10:09 Vitals Last Vital Signs Temp 99.1 F 05/07/23 12:27 Pulse 89 05/07/23 12:27 Resp 16 05/07/23 12:27 BP 151/79 05/07/23 12:27 Pulse Ox 97 05/07/23 12:27 O2 Del Method Room Air 05/07/23 12:27 Discharge Plan Discharge Patient Disposition: Home Condition: Stable Prescriptions: New Eliquis 2.5 mg tablet 2.5 mg PO BID 14 Days Qty: 28 0RF Continued lisinopril-hydrochlorothiazide [Zestoretic] 20-25 mg tablet 1 tab PO DAILY donepezil 10 mg tablet 10 mg PO DAILY levothyroxine 25 mcg tablet 25 mcg PO DAILY gabapentin 300 mg capsule 300 mg PO TID Discontinued meloxicam 7.5 mg tablet 7.5 mg PO DAILY Discharge Orders: Discharge Order (Routine); Ordered 05/07/23 Ordered By: Catalino Calles Referrals: [facility]) [Outside] Ben Davila DO [Physician] - (We have notified your physician's clinic of the need for a follow-up appointment to be scheduled. If you have not heard from them within the next 2 business days, please call them directly. You may also reach out to our shift nurse manager at [phone] and she can assist you.) Brian Norris MD [Primary Care Provider] - 05/08/23 2:20 pm Discharge Diet: Cardiac Discharge Activity: Increase activity as tolerated Patient Instructions: Oxycodone, Rapid Release (By mouth), Ondansetron (By mouth), Apixaban (By mouth), Total Knee Replacement (DC), Joint Replacement Stoplight, Opioid Safety Activity Restrictions/Additional Instructions: Orthopedic discharge instructions Keep incisions clean dry and intact, leave Silverlon bandage dressings on in place for 7 days after that may rinse incisions with warm soapy water pat dry and redress with a dry dressing. Patient may weight-bear as tolerate to the operative extremity Utilize crutches as needed Encourage knee range of motion Ice and elevate as needed for pain and swelling Take pain medication as prescribed Take antinausea medication as needed The prescribed Eliquis twice daily for the next 14 days for blood clot prevention May supplement for pain with ibuprofen [id number] as needed No baths or soaks Follow-up in the orthopedic office in 2 weeks Contact the office for any questions or concerns Discharge Attestations Time Spent in Discharge Care*: less than 30 min Quality Metrics Clinical Quality Measures [ No reported AMI, CVA or VTE this stay] Coding Level of Care Code Acute Code for Chg Fwd Diagnoses Macrocytic anemia D53.9 Hypertension I10 Hypertension type: primary hypertension Right knee DJD M17.11 Osteoarthritis type: primary
== END 2023-05-07 16:26 | disposition home or self-care (01) ==
LOC: MEDSURG 15:49
PROVIDERS: Family Medicine; Admitting Provider Student in an Organized Health Care Education/Training Program; PCP Family Medicine; Visit Provider Student in an Organized Health Care Education/Training Program
PROC: 8E0Y0CZ Robotic Assisted Procedure of Lower Extremity, Open Approach (ICD-10-PCS; CPT 27447; principal; 2023-05-06 11:00)
DX: M17.11 Unilateral primary osteoarthritis, right knee (principal); I10 Essential (primary) hypertension; D53.9 Nutritional anemia, unspecified; E03.9 Hypothyroidism, unspecified
CPT/HCPCS: 20985; 27447; 36415; 36416; 51702; 73560; 80048; 81001; 81003; 82607; 82728; 82746; 82962; 83540; 83550; 84443; 85014; 85018; 85025; 86850; 86900; 97110; 97116; 97163; 97165; 97530; C1776; G0378; J0131; J0171; J0690; J1170; J1885; J2704; J2795; J3370; J7030; J7120

== ENCOUNTER → 2023-05-28 10:46 | Outpatient (BNVA) | payer MEDICARE, SELFPAY | PROVIDERS: Visit Provider Student in an Organized Health Care Education/Training Program | DX: Z96.651 Presence of right artificial knee joint (principal) | CPT/HCPCS: 73560; 73565; 99024 ==

== ENCOUNTER 2023-06-12 10:47 | Oncology outpatient (recurring) (ONCR) | payer MEDICARE, SELFPAY ==
[2023-06-12 12:57] LABS: Basophils # 0.1 10^3/uL (0.0-0.1); Eosinophils # 0.1 10^3/uL (0.0-0.8); Eosinophils % 1.3 %; Hematocrit 28.6 % (36-47); Lymphocytes # 1.7 10^3/uL (0.8-4.8); Lymphocytes % 23.8 %; Mean Corpuscular HGB Conc 31.5 g/dL (30-55); Mean Corpuscular Hemoglobin 32.3 pg (27-33); Mean Corpuscular Volume 102.5 fl (85-98); Mean Platelet Volume 10.8 fL (7.4-10.4); Monocytes # 0.6 10^3/uL (0.2-0.9); Monocytes % 9.1 %; Neutrophils # 4.39 10^3/uL (1.8-7.7); Neutrophils % 63.4 %; Nucleated Red Blood Cells % 0 %; Platelet Count 297 10^3/cmm (157-399); Red Blood Count 2.79 10^6/uL (3.85-5.65); Red Cell Distribution Width 22.2 % (12.1-15.1); White Blood Count 6.93 10^3/uL (3.29-11.43)
[2023-06-12 13:39] LABS: Alanine Aminotransferase 9 U/L (0-33); Albumin Level 3.9 g/dL (3.5-5.2); Alkaline Phosphatase 89 U/L (35-105); Anion Gap 11.5 (5-19); Aspartate Amino Transferase 16 U/L (0-32); Blood Urea Nitrogen 10 mg/dL (8-23); Calcium 9.1 mg/dL (8.5-10.5); Carbon Dioxide 27 mmol/L (22-29); Chloride 103 mmol/L (98-107); Ferritin 247 ng/mL (15-150); Globulin 2.9 g/dL (1.3-4.6); Glucose 154 mg/dL (65-115); Iron 65 ug/dL (37-145); Lactate Dehydrogenase 231 U/L (135-214); Osmolality Calculated 288 mOsm/kg (285-295); Percent Saturation 21.4 % (20-50); Potassium 3.5 mmol/L (3.5-5.1); Sodium 138 mmol/L (136-145); Thyroid Stimulating Hormone 2.41 uIU/mL (0.27-4.20); Total Bilirubin 0.5 mg/dL (0.15-1.2); Total Iron Binding Capacity 303 mcg/dl; Total Protein 6.8 g/dL (6.6-8.7); Unsaturated Iron Binding 238 ug/dL (112-347); Vitamin B12 431 pg/mL (232-1245)
== END 2023-06-30 23:59 | disposition home or self-care (01) ==
LOC: ONCMED 10:48
PROVIDERS: Visit Provider Internal Medicine Hematology & Oncology
DX: D53.9 Nutritional anemia, unspecified (principal); D64.9 Anemia, unspecified; R41.3 Other amnesia; I10 Essential (primary) hypertension; E07.9 Disorder of thyroid, unspecified; Z79.899 Other long term (current) drug therapy
CPT/HCPCS: 36415; 80053; 82607; 82728; 83540; 83550; 83615; 84443; 85025; 85045; 99204

== ENCOUNTER 2023-06-21 14:51 | Emergency (ER) | payer MEDICARE, SELFPAY ==
--- NOTE | 2023-06-21 15:02 | XRR_ITS ---
PROCEDURE INFORMATION: Exam: XR Right Foot Exam date and time: 06/21/2023 3:32 PM Age: 82 years old Clinical indication: Pain; Heel; Right; Additional info: Heel pain TECHNIQUE: Imaging protocol: Radiologic exam of the right foot. Views: 3 or more views. COMPARISON: CR XR knees AP WB w RT lmt ORTH 05/28/2023 10:46 AM FINDINGS: Bones/joints: Osteopenia. No fracture or dislocation. Tiny plantar calcaneal enthesophyte. Mild degenerative change of the midfoot and forefoot. Soft tissues: Mild forefoot soft tissue swelling. XR/XR foot RT min 3V* [id number] IMPRESSION: No acute pathology. Minor findings as above.
[2023-06-21 15:12] VITALS: BP 143/83; PULSE 77; RESP 15; TEMP 36.7; O2SAT 98; BMI 23.3
== END 2023-06-21 17:09 | disposition left against medical advice (07) ==
PROVIDERS: Emergency Provider Family Medicine; PCP Family Medicine
DX: Z53.21 Procedure and treatment not carried out due to patient leaving prior to being seen by health care provider (principal)
CPT/HCPCS: 73630

== ENCOUNTER → 2023-07-12 10:07 | Outpatient (BNVA) | payer MEDICARE, SELFPAY | PROVIDERS: PCP Family Medicine; Visit Provider Physician Assistant | DX: Z96.651 Presence of right artificial knee joint (principal) | CPT/HCPCS: 73560; 73565; 99213 ==

== ENCOUNTER → 2023-07-17 09:24 | Outpatient (BNVA) | payer MEDICARE, SELFPAY | PROVIDERS: PCP Family Medicine; Visit Provider Nurse Practitioner Family | DX: D53.9 Nutritional anemia, unspecified (principal); I10 Essential (primary) hypertension; E07.9 Disorder of thyroid, unspecified; Z78.9 Other specified health status | CPT/HCPCS: 99214 ==

== ENCOUNTER 2023-07-18 15:29 | Outpatient (CLI) | payer MEDICARE, SELFPAY | END 2023-07-18 15:30 | disposition home or self-care (01) | LOC: LAB 15:33 | PROVIDERS: PCP Family Medicine; Visit Provider Nurse Practitioner Family | DX: Z01.89 Encounter for other specified special examinations (principal) | CPT/HCPCS: 82274 ==

== ENCOUNTER 2023-07-30 13:00 | Oncology outpatient (recurring) (ONCR) | payer MEDICARE, SELFPAY ==
[2023-07-08 10:01] LABS: Basophils # 0.1 10^3/uL (0.0-0.1); Basophils % 1.8 %; Eosinophils % 0.7 %; Hematocrit 30.5 % (36-47); Lymphocytes # 1.3 10^3/uL (0.8-4.8); Mean Corpuscular HGB Conc 31.1 g/dL (30-55); Mean Corpuscular Hemoglobin 30.7 pg (27-33); Mean Corpuscular Volume 98.7 fl (85-98); Monocytes # 0.4 10^3/uL (0.2-0.9); Monocytes % 7.5 %; Neutrophils # 3.75 10^3/uL (1.8-7.7); Neutrophils % 66.6 %; Nucleated Red Blood Cells % 0 %; Platelet Count 340 10^3/cmm (157-399); Red Blood Count 3.09 10^6/uL (3.85-5.65); Red Cell Distribution Width 21.9 % (12.1-15.1); Reticulocyte % 1.8 % (0.5-2.0); White Blood Count 5.62 10^3/uL (3.29-11.43)
[2023-07-08 10:21] LABS: Alanine Aminotransferase 9 U/L (0-33); Albumin Level 3.9 g/dL (3.5-5.2); Alkaline Phosphatase 109 U/L (35-105); Anion Gap 15.4 (5-19); Aspartate Amino Transferase 18 U/L (0-32); Blood Urea Nitrogen 11 mg/dL (8-23); Calcium 9.2 mg/dL (8.5-10.5); Carbon Dioxide 26 mmol/L (22-29); Chloride 103 mmol/L (98-107); Globulin 3.4 g/dL (1.3-4.6); Glucose 115 mg/dL (65-115); Iron 79 ug/dL (37-145); Lactate Dehydrogenase 279 U/L (135-214); Osmolality Calculated 292 mOsm/kg (285-295); Percent Saturation 29.2 % (20-50); Potassium 3.4 mmol/L (3.5-5.1); Sodium 141 mmol/L (136-145); Total Bilirubin 0.6 mg/dL (0.15-1.2); Total Iron Binding Capacity 270 mcg/dl; Total Protein 7.3 g/dL (6.6-8.7); Unsaturated Iron Binding 191 ug/dL (112-347)
[2023-07-08 10:43] LABS: Erythrocyte Sedimentation Rate 12 mm/hr (0-15)
[2023-07-09 07:54] LABS: PROTEIN, TOTAL 6.7 g/dL (6.1-8.1)
[2023-07-09 13:30] LABS: ALBUMIN 3.7 g/dL (3.8-4.8); ALPHA 1 GLOBULIN 0.4 g/dL (0.2-0.3); ALPHA 2 GLOBULIN 0.6 g/dL (0.5-0.9); BETA 1 GLOBULIN 0.4 g/dL (0.4-0.6); BETA 2 GLOBULIN 0.5 g/dL (0.2-0.5); GAMMA GLOBULIN 1.1 g/dL (0.8-1.7); KAPPA LIGHT CHAIN, FREE, SERUM 37.2 mg/L (3.3-19.4); KAPPA/LAMBDA LIGHT CHAINS FREE 1.82 (0.26-1.65); LAMBDA LIGHT CHAIN, FREE, SERU 20.4 mg/L (5.7-26.3)
[2023-07-30 13:32] LABS: Basophils # 0.1 10^3/uL (0.0-0.1); Basophils % 2.5 %; Eosinophils # 0.1 10^3/uL (0.0-0.8); Eosinophils % 1.5 %; Hematocrit 27.6 % (36-47); Lymphocytes # 1.6 10^3/uL (0.8-4.8); Lymphocytes % 33.5 %; Mean Corpuscular HGB Conc 32.2 g/dL (30-55); Mean Corpuscular Hemoglobin 31.3 pg (27-33); Mean Corpuscular Volume 97.2 fl (85-98); Mean Platelet Volume 11.2 fL (7.4-10.4); Monocytes # 0.5 10^3/uL (0.2-0.9); Monocytes % 9.6 %; Neutrophils # 2.52 10^3/uL (1.8-7.7); Neutrophils % 52.7 %; Nucleated Red Blood Cells % 0 %; Platelet Count 281 10^3/cmm (157-399); Red Blood Count 2.84 10^6/uL (3.85-5.65); Red Cell Distribution Width 22.1 % (12.1-15.1); White Blood Count 4.78 10^3/uL (3.29-11.43)
[2023-07-30 13:47] LABS: Alanine Aminotransferase 11 U/L (0-33); Albumin Level 3.9 g/dL (3.5-5.2); Alkaline Phosphatase 83 U/L (35-105); Anion Gap 12.2 (5-19); Aspartate Amino Transferase 20 U/L (0-32); Blood Urea Nitrogen 14 mg/dL (8-23); Calcium 9.2 mg/dL (8.5-10.5); Carbon Dioxide 27 mmol/L (22-29); Chloride 103 mmol/L (98-107); Ferritin 232 ng/mL (15-150); Glucose 117 mg/dL (65-115); Iron 103 ug/dL (37-145); Osmolality Calculated 290 mOsm/kg (285-295); Percent Saturation 38.1 % (20-50); Potassium 3.2 mmol/L (3.5-5.1); Sodium 139 mmol/L (136-145); Total Bilirubin 0.4 mg/dL (0.15-1.2); Total Iron Binding Capacity 270 mcg/dl; Total Protein 6.9 g/dL (6.6-8.7); Unsaturated Iron Binding 167 ug/dL (112-347)
[2023-08-05 11:05] LABS: Soluble Transferrin Receptor 2.12 mg/L (0.76-1.76)
== END 2023-07-31 23:59 | disposition home or self-care (01) ==
PROVIDERS: Internal Medicine Medical Oncology; PCP Family Medicine; Visit Provider Internal Medicine Hematology & Oncology
DX: Z53.9 Procedure and treatment not carried out, unspecified reason (principal); K92.1 Melena; D64.9 Anemia, unspecified
CPT/HCPCS: 36415; 80053; 82728; 83010; 83540; 83550; 83615; 83883; 84155; 84165; 84238; 85025; 85045; 85651; 86140; 86334

== ENCOUNTER → 2023-08-08 12:55 | Outpatient (BNVA) | payer MEDICARE, SELFPAY | PROVIDERS: PCP Family Medicine; Visit Provider Physician Assistant | DX: Z96.651 Presence of right artificial knee joint (principal) | CPT/HCPCS: 73560; 73565; 99213 ==

== ENCOUNTER → 2023-08-12 08:25 | Outpatient (BNVA) | payer MEDICARE, SELFPAY | PROVIDERS: PCP Family Medicine; Visit Provider Podiatrist Foot & Ankle Surgery | DX: I73.9 Peripheral vascular disease, unspecified (principal); L60.2 Onychogryphosis | CPT/HCPCS: 11721 ==

== ENCOUNTER → 2023-08-23 11:18 | Outpatient (BNVA) | payer MEDICARE, SELFPAY | PROVIDERS: PCP Family Medicine; Referring Provider Internal Medicine Medical Oncology; Visit Provider Surgery | DX: D64.9 Anemia, unspecified (principal); K92.1 Melena; K21.9 Gastro-esophageal reflux disease without esophagitis | CPT/HCPCS: 99204 ==

== ENCOUNTER 2023-10-09 06:57 | Day surgery (SDC) | payer MEDICARE, SELFPAY ==
[2023-10-09 07:29] VITALS: BP 126/72; PULSE 85; RESP 18; TEMP 36.1; O2SAT 96; BMI 24.0
--- NOTE | 2023-10-09 07:31 | ANES.PREANE2 ---
Pre-Anesthetic Assessment Height/Weight: Height 1.63 m Preop Diagnosis: screening Operation Date: 10/09/23 08:15 Proposed Procedures p [id number] egd [id number] colon G0105 screen colon H risk D64.9, K92.1(Not Applicable) - DO neftali Torres Colonoscopy(Not Applicable) - Jerson Alonzo DO Familial anesthetic complications: None Was Beta Keon taken within 24 hours: N/A Was Clonidine taken within 24 hours: N/A Social No alcohol and No tobacco Exam alert, oriented x 3 and regular rate & rhythm Airway Submandibular: within normal limits Mallampati: Class II Dentition: false History/ROS No significant history except as noted Pulmonary None reported CV/HEM Hypertension None reported Hepatic None reported GI None reported Metabolic Thyroid Disease Musc/skel None reported Neuropsych None reported Anesthetic Plan ASA status: 2 Anesthesia: Anesthesia Evaluation and MAC Risk of > 500 ml blood loss (7ml/kg in children): No Medications/Allergies Home Medications Medication Instructions Recorded Confirmed Last Taken Type lisinopril 20 1 tab PO DAILY 08/04/19 10/07/23 10/08/23 History mg-hydrochlorothiazide 25 mg tablet (Zestoretic) donepezil 10 mg tablet 10 mg PO DAILY 02/20/23 10/07/23 10/08/23 History gabapentin 300 mg capsule 300 mg PO TID 02/20/23 10/07/23 10/08/23 History levothyroxine 25 mcg tablet 25 mcg PO DAILY 02/20/23 10/09/23 10/09/23 History acetaminophen 300 mg-codeine 60 mg 1 tab PO ONCE PRN Pain 08/23/23 10/07/23 10/08/23 History tablet Allergies Allergy/AdvReac Type Severity Reaction Status Date / Time erythromycin base Allergy Mild ALGY-Rash Verified 10/09/23 07:25 [From Erythrocin] Sulfa (Sulfonamide Allergy Mild ALGY-Rash Verified 10/09/23 07:25 Antibiotics) terbinafine Allergy Mild ADR-Insomni Verified 10/09/23 07:25 a tramadol Allergy Mild Unknown Verified 10/09/23 07:25 adhesive tape AdvReac Mild ADR-Nausea Verified 10/09/23 07:25 clindamycin AdvReac Mild ADR-Diarrhe Verified 10/09/23 07:25 a naproxen [From Naprosyn] AdvReac Mild ADR-Nausea Verified 10/09/23 07:25 [facility] Anesthesia Medical History Macrocytic anemia Memory difficulty Hypertension Arthritis Thyroid disease History of osteomyelitis Surgical History History of bladder repair surgery History of hysterectomy Family History Other Cancer Dementia Denies family history of Diabetes CAD (coronary artery disease) Clotting disorder Hyperlipidemia Psychiatric illness Chronic kidney disease (CKD) Suicide Anesthesia complication Bleeding disorder Family history of premature coronary artery disease Lung disease Hypertension Stroke Social History Smoking and tobacco/nicotine status: never used tobacco/nicotine Second hand smoke exposure: No Alcohol intake: never Substance/Drug Use: never Lives independently: Yes Household members: spouse Marital status: Current occupational status: retired Data Anesthesia Cardiac Studies: No Data to Display
[2023-10-09] MEDS: sodium chloride 0.9% 1,000 ML 30 ML IV (07:37)
--- NOTE | 2023-10-09 07:42 | PM.HP ---
Providers/Chief Complaint Primary Care Provider: Brian Norris MD Chief Complaint: D64.9, K92.1 History of Present Illness Sole Luna is a 82 year old female Review of Systems General: Reports: 10 or more systems reviewed and unremarkable except in HPI and below Medications/Allergies Home Medications Medication Instructions Recorded Confirmed Last Taken Type lisinopril 20 1 tab PO DAILY 08/04/19 10/07/23 10/08/23 History mg-hydrochlorothiazide 25 mg tablet (Zestoretic) donepezil 10 mg tablet 10 mg PO DAILY 02/20/23 10/07/23 10/08/23 History gabapentin 300 mg capsule 300 mg PO TID 02/20/23 10/07/23 10/08/23 History levothyroxine 25 mcg tablet 25 mcg PO DAILY 02/20/23 10/09/23 10/09/23 History acetaminophen 300 mg-codeine 60 mg 1 tab PO ONCE PRN Pain 08/23/23 10/07/23 10/08/23 History tablet Allergies Allergy/AdvReac Type Severity Reaction Status Date / Time erythromycin base Allergy Mild ALGY-Rash Verified 10/09/23 07:25 [From Erythrocin] Sulfa (Sulfonamide Allergy Mild ALGY-Rash Verified 10/09/23 07:25 Antibiotics) terbinafine Allergy Mild ADR-Insomni Verified 10/09/23 07:25 a tramadol Allergy Mild Unknown Verified 10/09/23 07:25 adhesive tape AdvReac Mild ADR-Nausea Verified 10/09/23 07:25 clindamycin AdvReac Mild ADR-Diarrhe Verified 10/09/23 07:25 a naproxen [From Naprosyn] AdvReac Mild ADR-Nausea Verified 10/09/23 07:25 PFSH Acute PFSH: Medical History Macrocytic anemia Memory difficulty Hypertension Arthritis Thyroid disease History of osteomyelitis Surgical History History of bladder repair surgery History of hysterectomy Family History Other Cancer Dementia Denies family history of Diabetes CAD (coronary artery disease) Clotting disorder Hyperlipidemia Psychiatric illness Chronic kidney disease (CKD) Suicide Anesthesia complication Bleeding disorder Family history of premature coronary artery disease Lung disease Hypertension Stroke Social History Smoking and tobacco/nicotine status: never used tobacco/nicotine Second hand smoke exposure: No Alcohol intake: never Substance/Drug Use: never Lives independently: Yes Household members: spouse Marital status: Current occupational status: retired Vitals/I&O/Wt Last Vital Signs Temp 97.0 F L 10/09/23 07:29 Pulse 85 10/09/23 07:29 Resp 18 10/09/23 07:29 BP 126/72 10/09/23 07:29 Pulse Ox 96 10/09/23 07:29 O2 Del Method Room Air 10/09/23 07:29 Weight last 48 hrs Weight 140 lb A&P Assessment and plan (1) GERD (gastroesophageal reflux disease): (2) Iron deficiency anemia: (3) Black stool: Plan EGD and colonoscopy Attestations Medical Necessity Statement*: Home Coding Level of Care Code Acute Code for Chg Fwd Diagnoses GERD (gastroesophageal reflux disease) K21.9 Iron deficiency anemia D50.9 Black stool K92.1
[2023-10-09 08:02] VITALS: BP 115/72; PULSE 72; RESP 16; TEMP 36.1; O2SAT 98
[2023-10-09 08:24] VITALS: BP 154/72; PULSE 78; RESP 18; O2SAT 99
--- NOTE | 2023-10-09 15:24 | ANE.PACU2 ---
Inpatient post-anesthesia follow up: Airway intact: Yes Vital signs: Temperature 97 F Pulse Rate 78 Respiratory Rate 18 Blood Pressure 154/72 Pulse Oximetry 99 Oxygen Delivery Me thod Room Air Oxygen Flow Rate Fraction of Inspir ed Oxygen Hydration adequate: Yes Nausea and vomiting: No Pain level: 2 Mental status: Baseline
== END 2023-10-09 08:44 | disposition home or self-care (01) ==
PROVIDERS: PCP Family Medicine; Visit Provider Surgery
PROC: 0DJ08ZZ Inspection of Upper Intestinal Tract, Via Natural or Artificial Opening Endoscopic (ICD-10-PCS; CPT 43235; principal; 2023-10-09 08:15)
PROC: 0DJD8ZZ Inspection of Lower Intestinal Tract, Via Natural or Artificial Opening Endoscopic (ICD-10-PCS; CPT 45378; 2023-10-09 08:15)
DX: K92.1 Melena (principal); D50.9 Iron deficiency anemia, unspecified; K21.9 Gastro-esophageal reflux disease without esophagitis; I10 Essential (primary) hypertension; M19.90 Unspecified osteoarthritis, unspecified site; K29.70 Gastritis, unspecified, without bleeding
CPT/HCPCS: 43239; 45378; 88305; J2704; J7030

== ENCOUNTER 2023-10-14 11:46 | Oncology outpatient (recurring) (ONCR) | payer MEDICARE, SELFPAY ==
[2023-10-14 12:31] LABS: Basophils # 0.1 10^3/uL (0.0-0.1); Basophils % 1.9 %; Eosinophils # 0.1 10^3/uL (0.0-0.8); Eosinophils % 1.2 %; Hematocrit 25.5 % (36-47); Lymphocytes # 1.7 10^3/uL (0.8-4.8); Lymphocytes % 28.6 %; Mean Corpuscular HGB Conc 32.5 g/dL (30-55); Mean Corpuscular Hemoglobin 31.1 pg (27-33); Mean Corpuscular Volume 95.5 fl (85-98); Mean Platelet Volume 10.3 fL (7.4-10.4); Monocytes # 0.6 10^3/uL (0.2-0.9); Monocytes % 10.4 %; Neutrophils # 3.37 10^3/uL (1.8-7.7); Neutrophils % 57.4 %; Nucleated Red Blood Cells % 0 %; Platelet Count 325 10^3/cmm (157-399); Red Blood Count 2.67 10^6/uL (3.85-5.65); Red Cell Distribution Width 20.3 % (12.1-15.1); White Blood Count 5.87 10^3/uL (3.29-11.43)
[2023-10-14 12:45] LABS: Alanine Aminotransferase 10 U/L (0-33); Albumin Level 3.8 g/dL (3.5-5.2); Alkaline Phosphatase 75 U/L (35-105); Anion Gap 15.1 (5-19); Aspartate Amino Transferase 16 U/L (0-32); Blood Urea Nitrogen 20 mg/dL (8-23); Calcium 9.2 mg/dL (8.5-10.5); Carbon Dioxide 25 mmol/L (22-29); Chloride 96 mmol/L (98-107); Globulin 2.8 g/dL (1.3-4.6); Glucose 121 mg/dL (65-115); Osmolality Calculated 280 mOsm/kg (285-295); Potassium 3.1 mmol/L (3.5-5.1); Sodium 133 mmol/L (136-145); Total Bilirubin 0.4 mg/dL (0.15-1.2); Total Protein 6.6 g/dL (6.6-8.7)
[2023-10-14 14:06] LABS: Reticulocyte % 1.6 % (0.5-2.0)
[2023-10-14 14:23] LABS: Lactate Dehydrogenase 185 U/L (135-214)
[2023-10-14] MEDS: luspatercept-aamt 75 mg 63.5 MG SUBCUT (15:14)
[2023-10-15 12:49] LABS: Leukemia Profile (BBPL) See Report
== END 2023-10-14 23:59 | disposition home or self-care (01) ==
PROVIDERS: Internal Medicine; PCP Family Medicine; Visit Provider Internal Medicine Hematology & Oncology
DX: D51.0 Vitamin B12 deficiency anemia due to intrinsic factor deficiency (principal); D53.9 Nutritional anemia, unspecified; Z79.899 Other long term (current) drug therapy; D46.Z Other myelodysplastic syndromes; K92.1 Melena
CPT/HCPCS: 36415; 80053; 82668; 83615; 85025; 85045; 88184; 88185; 96372; 99214; J0896

== ENCOUNTER → 2023-10-21 13:27 | Outpatient (BNVA) | payer MEDICARE, SELFPAY | PROVIDERS: PCP Family Medicine; Visit Provider Surgery | DX: Z09 Encounter for follow-up examination after completed treatment for conditions other than malignant neoplasm (principal) | CPT/HCPCS: 99214 ==

== ENCOUNTER 2023-11-04 11:48 | Oncology outpatient (recurring) (ONCR) | payer MEDICARE, SELFPAY ==
[2023-11-04 12:09] LABS: Basophils # 0.1 10^3/uL (0.0-0.1); Basophils % 2.3 %; Eosinophils # 0.1 10^3/uL (0.0-0.8); Eosinophils % 1.8 %; Hematocrit 32.5 % (36-47); Lymphocytes # 1.7 10^3/uL (0.8-4.8); Lymphocytes % 30.3 %; Mean Corpuscular HGB Conc 34.5 g/dL (30-55); Mean Corpuscular Hemoglobin 32.1 pg (27-33); Mean Corpuscular Volume 93.1 fl (85-98); Mean Platelet Volume 10.7 fL (7.4-10.4); Monocytes # 0.7 10^3/uL (0.2-0.9); Monocytes % 11.5 %; Neutrophils # 3.03 10^3/uL (1.8-7.7); Neutrophils % 53.7 %; Nucleated Red Blood Cells % 0 %; Platelet Count 329 10^3/cmm (157-399); Red Blood Count 3.49 10^6/uL (3.85-5.65); Red Cell Distribution Width 19.6 % (12.1-15.1); White Blood Count 5.64 10^3/uL (3.29-11.43)
[2023-11-04 12:24] LABS: Alanine Aminotransferase 10 U/L (0-33); Albumin Level 4.1 g/dL (3.5-5.2); Alkaline Phosphatase 81 U/L (35-105); Anion Gap 13.1 (5-19); Aspartate Amino Transferase 18 U/L (0-32); Blood Urea Nitrogen 14 mg/dL (8-23); Calcium 9.5 mg/dL (8.5-10.5); Carbon Dioxide 26 mmol/L (22-29); Chloride 95 mmol/L (98-107); Glucose 111 mg/dL (65-115); Lactate Dehydrogenase 211 U/L (135-214); Osmolality Calculated 273 mOsm/kg (285-295); Potassium 3.1 mmol/L (3.5-5.1); Sodium 131 mmol/L (136-145); Total Bilirubin 0.5 mg/dL (0.15-1.2); Total Protein 7.1 g/dL (6.6-8.7)
[2023-11-04] MEDS: luspatercept-aamt 75 mg 63.5 MG SUBCUT (14:35)
== END 2023-11-04 23:59 | disposition home or self-care (01) ==
PROVIDERS: Nurse Practitioner Family; PCP Family Medicine; Visit Provider Internal Medicine Hematology & Oncology
DX: D46.Z Other myelodysplastic syndromes; Z79.899 Other long term (current) drug therapy; E07.9 Disorder of thyroid, unspecified; D51.0 Vitamin B12 deficiency anemia due to intrinsic factor deficiency; Z78.9 Other specified health status
CPT/HCPCS: 36415; 80053; 83615; 85025; 96372; 99214; J0896

== ENCOUNTER 2023-11-15 08:45 | Oncology outpatient (recurring) (ONCR) | payer MEDICARE, SELFPAY ==
[2023-11-11 13:40] LABS: Basophils # 0.2 10^3/uL (0.0-0.1); Basophils % 2.9 %; Eosinophils # 0.1 10^3/uL (0.0-0.8); Hematocrit 35.3 % (36-47); Lymphocytes # 2.1 10^3/uL (0.8-4.8); Mean Corpuscular HGB Conc 32.6 g/dL (30-55); Mean Corpuscular Hemoglobin 31.8 pg (27-33); Mean Corpuscular Volume 97.5 fl (85-98); Mean Platelet Volume 10.6 fL (7.4-10.4); Monocytes # 0.6 10^3/uL (0.2-0.9); Monocytes % 9.6 %; Neutrophils # 2.96 10^3/uL (1.8-7.7); Neutrophils % 49.8 %; Nucleated Red Blood Cells % 0 %; Platelet Count 349 10^3/cmm (157-399); Red Blood Count 3.62 10^6/uL (3.85-5.65); Red Cell Distribution Width 19.9 % (12.1-15.1); White Blood Count 5.94 10^3/uL (3.29-11.43)
[2023-11-11 13:49] LABS: Alanine Aminotransferase 12 U/L (0-33); Albumin Level 4.2 g/dL (3.5-5.2); Alkaline Phosphatase 92 U/L (35-105); Anion Gap 10.9 (5-19); Aspartate Amino Transferase 19 U/L (0-32); Blood Urea Nitrogen 17 mg/dL (8-23); Calcium 9.3 mg/dL (8.5-10.5); Carbon Dioxide 28 mmol/L (22-29); Chloride 97 mmol/L (98-107); Glucose 116 mg/dL (65-115); Osmolality Calculated 279 mOsm/kg (285-295); Sodium 133 mmol/L (136-145); Total Bilirubin 0.5 mg/dL (0.15-1.2); Total Protein 7.2 g/dL (6.6-8.7)
[2023-11-11 13:54] LABS: Potassium 2.9 mmol/L (3.5-5.1)
[2023-11-11 14:16] LABS: Magnesium 1.8 mg/dL (1.7-2.3)
== END 2023-11-29 23:59 | disposition home or self-care (01) ==
PROVIDERS: Nurse Practitioner Family; PCP Family Medicine; Visit Provider Internal Medicine Hematology & Oncology
DX: Z53.9 Procedure and treatment not carried out, unspecified reason (principal)
CPT/HCPCS: 36415; 80053; 83735; 85025

== ENCOUNTER → 2023-11-26 14:17 | Outpatient (BNVA) | payer MEDICARE, SELFPAY | PROVIDERS: PCP Family Medicine; Visit Provider Podiatrist Foot & Ankle Surgery | DX: I73.9 Peripheral vascular disease, unspecified (principal); L60.2 Onychogryphosis | CPT/HCPCS: 11721 ==

== ENCOUNTER 2023-12-02 13:06 | Oncology outpatient (recurring) (ONCR) | payer MEDICARE, SELFPAY ==
[2023-12-02 13:55] LABS: Basophils # 0.1 10^3/uL (0.0-0.1); Basophils % 2.8 %; Eosinophils # 0.1 10^3/uL (0.0-0.8); Hematocrit 35.1 % (36-47); Lymphocytes # 1.6 10^3/uL (0.8-4.8); Lymphocytes % 31.6 %; Mean Corpuscular HGB Conc 33.3 g/dL (30-55); Mean Corpuscular Hemoglobin 32.5 pg (27-33); Mean Corpuscular Volume 97.5 fl (85-98); Mean Platelet Volume 10.6 fL (7.4-10.4); Monocytes # 0.5 10^3/uL (0.2-0.9); Monocytes % 9.6 %; Neutrophils # 2.67 10^3/uL (1.8-7.7); Neutrophils % 53.4 %; Nucleated Red Blood Cells % 0.4 %; Platelet Count 310 10^3/cmm (157-399); Red Cell Distribution Width 19.9 % (12.1-15.1)
[2023-12-02 14:11] LABS: Alanine Aminotransferase 13 U/L (0-33); Albumin Level 4.2 g/dL (3.5-5.2); Alkaline Phosphatase 90 U/L (35-105); Anion Gap 14.8 (5-19); Aspartate Amino Transferase 21 U/L (0-32); Blood Urea Nitrogen 17 mg/dL (8-23); Calcium 8.7 mg/dL (8.5-10.5); Carbon Dioxide 24 mmol/L (22-29); Chloride 100 mmol/L (98-107); Glucose 145 mg/dL (65-115); Osmolality Calculated 284 mOsm/kg (285-295); Potassium 3.8 mmol/L (3.5-5.1); Sodium 135 mmol/L (136-145); Total Bilirubin 0.4 mg/dL (0.15-1.2); Total Protein 7.2 g/dL (6.6-8.7)
[2023-12-02] MEDS: luspatercept-aamt 25 mg 63.5 MG SUBCUT (16:08)
== END 2023-12-02 23:59 | disposition home or self-care (01) ==
PROVIDERS: Nurse Practitioner Family; PCP Family Medicine; Visit Provider Internal Medicine Hematology & Oncology
DX: D46.Z Other myelodysplastic syndromes; E07.9 Disorder of thyroid, unspecified; D53.9 Nutritional anemia, unspecified; I10 Essential (primary) hypertension; Z79.899 Other long term (current) drug therapy
CPT/HCPCS: 80053; 85025; 99214; J0896

== ENCOUNTER → 2023-12-03 13:12 | Outpatient (BNVA) | payer MEDICARE, SELFPAY | PROVIDERS: PCP Family Medicine; Visit Provider Physician Assistant | DX: Z96.651 Presence of right artificial knee joint (principal) | CPT/HCPCS: 73560; 73565; 99213 ==

== ENCOUNTER 2023-12-31 13:30 | Oncology outpatient (recurring) (ONCR) | payer MEDICARE, SELFPAY ==
[2023-12-30 14:56] LABS: Basophils # 0.1 10^3/uL (0.0-0.1); Basophils % 1.9 %; Eosinophils # 0.1 10^3/uL (0.0-0.8); Eosinophils % 1.1 %; Hematocrit 35.1 % (36-47); Lymphocytes # 1.8 10^3/uL (0.8-4.8); Lymphocytes % 25.4 %; Mean Corpuscular HGB Conc 32.8 g/dL (30-55); Mean Corpuscular Hemoglobin 31.5 pg (27-33); Mean Corpuscular Volume 96.2 fl (85-98); Mean Platelet Volume 10.4 fL (7.4-10.4); Monocytes # 0.5 10^3/uL (0.2-0.9); Monocytes % 7.6 %; Neutrophils # 4.44 10^3/uL (1.8-7.7); Neutrophils % 63.3 %; Nucleated Red Blood Cells % 0 %; Platelet Count 300 10^3/cmm (157-399); Red Blood Count 3.65 10^6/uL (3.85-5.65); Red Cell Distribution Width 19.9 % (12.1-15.1); White Blood Count 7.01 10^3/uL (3.29-11.43)
[2023-12-30 15:15] LABS: Alanine Aminotransferase 11 U/L (0-33); Alkaline Phosphatase 87 U/L (35-105); Anion Gap 12.8 (5-19); Aspartate Amino Transferase 18 U/L (0-32); Blood Urea Nitrogen 19 mg/dL (8-23); Calcium 9.1 mg/dL (8.5-10.5); Carbon Dioxide 25 mmol/L (22-29); Chloride 103 mmol/L (98-107); Creatinine Clr Calc Pharmacy 44.8469; Globulin 2.9 g/dL (1.3-4.6); Glucose 90 mg/dL (65-115); Osmolality Calculated 286 mOsm/kg (285-295); Potassium 3.8 mmol/L (3.5-5.1); Sodium 137 mmol/L (136-145); Total Bilirubin 0.3 mg/dL (0.15-1.2); Total Protein 6.9 g/dL (6.6-8.7)
[2023-12-31] MEDS: luspatercept-aamt 25 mg 63.5 MG SUBCUT (14:19)
[2023-12-31 14:30] VITALS: BP 127/78; PULSE 84; RESP 18; TEMP 36.6; O2SAT 97
== END 2023-12-31 23:59 | disposition home or self-care (01) ==
PROVIDERS: PCP Family Medicine; Visit Provider Nurse Practitioner Family
DX: Z53.9 Procedure and treatment not carried out, unspecified reason; D46.Z Other myelodysplastic syndromes
CPT/HCPCS: 36415; 80053; 85025; 96401; 99214; J0896

== ENCOUNTER 2024-01-23 12:58 | Oncology outpatient (recurring) (ONCR) | payer MEDICARE, SELFPAY ==
[2024-01-23 13:32] LABS: Basophils # 0.1 10^3/uL (0.0-0.1); Basophils % 1.9 %; Eosinophils # 0.1 10^3/uL (0.0-0.8); Eosinophils % 1.5 %; Hematocrit 36.3 % (36-47); Lymphocytes % 29.6 %; Mean Corpuscular HGB Conc 32.5 g/dL (30-55); Mean Corpuscular Hemoglobin 30.7 pg (27-33); Mean Corpuscular Volume 94.5 fl (85-98); Mean Platelet Volume 10.4 fL (7.4-10.4); Monocytes # 0.6 10^3/uL (0.2-0.9); Monocytes % 8.6 %; Neutrophils # 3.91 10^3/uL (1.8-7.7); Nucleated Red Blood Cells % 0.6 %; Platelet Count 301 10^3/cmm (157-399); Red Blood Count 3.84 10^6/uL (3.85-5.65); Red Cell Distribution Width 21.1 % (12.1-15.1); White Blood Count 6.75 10^3/uL (3.29-11.43)
[2024-01-23 13:55] LABS: Alanine Aminotransferase 11 U/L (0-33); Alkaline Phosphatase 89 U/L (35-105); Anion Gap 16.5 (5-19); Aspartate Amino Transferase 21 U/L (0-32); Blood Urea Nitrogen 24 mg/dL (8-23); Calcium 9.1 mg/dL (8.5-10.5); Carbon Dioxide 24 mmol/L (22-29); Chloride 103 mmol/L (98-107); Globulin 3.1 g/dL (1.3-4.6); Glucose 170 mg/dL (65-115); Osmolality Calculated 298 mOsm/kg (285-295); Potassium 3.5 mmol/L (3.5-5.1); Sodium 140 mmol/L (136-145); Total Bilirubin 0.5 mg/dL (0.15-1.2); Total Protein 7.1 g/dL (6.6-8.7)
[2024-01-23 15:51] VITALS: BP 138/74; PULSE 84; RESP 17; TEMP 36.5; O2SAT 94
[2024-01-23] MEDS: luspatercept-aamt 25 mg 65.5 MG SUBCUT (15:51)
== END 2024-01-23 23:59 | disposition home or self-care (01) ==
PROVIDERS: PCP Family Medicine; Visit Provider Nurse Practitioner Family
DX: D46.Z Other myelodysplastic syndromes; Z79.899 Other long term (current) drug therapy; E07.9 Disorder of thyroid, unspecified
CPT/HCPCS: 36415; 80053; 85025; 96372; 99214; J0896

== ENCOUNTER 2024-02-13 13:23 | Oncology outpatient (recurring) (ONCR) | payer MEDICARE, SELFPAY ==
[2024-02-13 13:53] LABS: Basophils # 0.1 10^3/uL (0.0-0.1); Basophils % 1.7 %; Eosinophils # 0.1 10^3/uL (0.0-0.8); Eosinophils % 1.5 %; Hematocrit 34.2 % (36-47); Lymphocytes # 1.5 10^3/uL (0.8-4.8); Lymphocytes % 27.3 %; Mean Corpuscular HGB Conc 33.9 g/dL (30-55); Mean Corpuscular Hemoglobin 31.7 pg (27-33); Mean Corpuscular Volume 93.4 fl (85-98); Mean Platelet Volume 10.3 fL (7.4-10.4); Monocytes # 0.6 10^3/uL (0.2-0.9); Monocytes % 11.5 %; Neutrophils % 57.6 %; Nucleated Red Blood Cells % 0.4 %; Platelet Count 308 10^3/cmm (157-399); Red Blood Count 3.66 10^6/uL (3.85-5.65); Red Cell Distribution Width 21.2 % (12.1-15.1); White Blood Count 5.38 10^3/uL (3.29-11.43)
[2024-02-13 14:15] LABS: Alanine Aminotransferase 12 U/L (0-33); Alkaline Phosphatase 86 U/L (35-105); Anion Gap 16.5 (5-19); Aspartate Amino Transferase 18 U/L (0-32); Blood Urea Nitrogen 14 mg/dL (8-23); Calcium 8.7 mg/dL (8.5-10.5); Carbon Dioxide 23 mmol/L (22-29); Chloride 101 mmol/L (98-107); Globulin 2.4 g/dL (1.3-4.6); Glucose 119 mg/dL (65-115); Osmolality Calculated 286 mOsm/kg (285-295); Potassium 3.5 mmol/L (3.5-5.1); Sodium 137 mmol/L (136-145); Total Bilirubin 0.4 mg/dL (0.15-1.2); Total Protein 6.4 g/dL (6.6-8.7)
[2024-02-13] MEDS: luspatercept-aamt 25 mg 67 MG SUBCUT (16:11)
== END 2024-02-13 23:59 | disposition home or self-care (01) ==
PROVIDERS: Nurse Practitioner Family; PCP Family Medicine; Visit Provider Nurse Practitioner Family
DX: D46.Z Other myelodysplastic syndromes; Z79.899 Other long term (current) drug therapy; E07.9 Disorder of thyroid, unspecified; I10 Essential (primary) hypertension
CPT/HCPCS: 36415; 80053; 85025; 96372; 99214; J0896

== ENCOUNTER 2024-03-05 11:56 | Oncology outpatient (recurring) (ONCR) | payer MEDICARE, SELFPAY ==
[2024-03-05 13:04] LABS: Basophils # 0.1 10^3/uL (0.0-0.1); Basophils % 2.1 %; Eosinophils # 0.1 10^3/uL (0.0-0.8); Eosinophils % 1.7 %; Hematocrit 34.4 % (36-47); Lymphocytes # 1.7 10^3/uL (0.8-4.8); Lymphocytes % 26.4 %; Mean Corpuscular HGB Conc 32.6 g/dL (30-55); Mean Corpuscular Hemoglobin 30.9 pg (27-33); Mean Corpuscular Volume 94.8 fl (85-98); Mean Platelet Volume 10.5 fL (7.4-10.4); Monocytes # 0.6 10^3/uL (0.2-0.9); Monocytes % 9.5 %; Neutrophils # 3.88 10^3/uL (1.8-7.7); Neutrophils % 59.5 %; Nucleated Red Blood Cells % 0.5 %; Platelet Count 343 10^3/cmm (157-399); Red Blood Count 3.63 10^6/uL (3.85-5.65); Red Cell Distribution Width 20.9 % (12.1-15.1); White Blood Count 6.52 10^3/uL (3.29-11.43)
[2024-03-05 13:21] LABS: Alanine Aminotransferase 13 U/L (0-33); Albumin Level 3.9 g/dL (3.5-5.2); Alkaline Phosphatase 90 U/L (35-105); Blood Urea Nitrogen 17 mg/dL (8-23); Calcium 8.5 mg/dL (8.5-10.5); Carbon Dioxide 23 mmol/L (22-29); Chloride 101 mmol/L (98-107); Creatinine Clr Calc Pharmacy 40.7349; Globulin 2.6 g/dL (1.3-4.6); Glucose 166 mg/dL (65-115); Osmolality Calculated 291 mOsm/kg (285-295); Sodium 138 mmol/L (136-145); Total Bilirubin 0.4 mg/dL (0.15-1.2); Total Protein 6.5 g/dL (6.6-8.7)
[2024-03-05 13:23] LABS: Anion Gap 17.5 (5-19); Aspartate Amino Transferase 23 U/L (0-32); Potassium 3.5 mmol/L (3.5-5.1)
[2024-03-05] MEDS: luspatercept-aamt 25 mg 66.5 MG SUBCUT (14:37)
== END 2024-03-05 23:59 | disposition home or self-care (01) ==
PROVIDERS: PCP Family Medicine; Visit Provider Nurse Practitioner Family
DX: D46.Z Other myelodysplastic syndromes; D53.9 Nutritional anemia, unspecified; E07.9 Disorder of thyroid, unspecified; Z78.9 Other specified health status; Z79.899 Other long term (current) drug therapy
CPT/HCPCS: 36415; 80053; 85025; 96372; 99214; J0896

== ENCOUNTER 2024-03-26 14:00 | Oncology outpatient (recurring) (ONCR) | payer MEDICARE, SELFPAY ==
[2024-03-26 14:00] LABS: Basophils # 0.1 10^3/uL (0.0-0.1); Basophils % 1.6 %; Eosinophils # 0.1 10^3/uL (0.0-0.8); Eosinophils % 1.6 %; Hematocrit 36.3 % (36-47); Lymphocytes # 1.4 10^3/uL (0.8-4.8); Lymphocytes % 19.2 %; Mean Corpuscular HGB Conc 33.1 g/dL (30-55); Mean Corpuscular Hemoglobin 31.3 pg (27-33); Mean Corpuscular Volume 94.5 fl (85-98); Mean Platelet Volume 10.4 fL (7.4-10.4); Monocytes # 0.6 10^3/uL (0.2-0.9); Monocytes % 7.6 %; Neutrophils % 69.3 %; Nucleated Red Blood Cells % 0.4 %; Platelet Count 327 10^3/cmm (157-399); Red Blood Count 3.84 10^6/uL (3.85-5.65); Red Cell Distribution Width 20.9 % (12.1-15.1)
[2024-03-26 14:07] LABS: Alanine Aminotransferase 14 U/L (0-33); Albumin Level 3.8 g/dL (3.5-5.2); Alkaline Phosphatase 93 U/L (35-105); Anion Gap 14.2 (5-19); Aspartate Amino Transferase 19 U/L (0-32); Blood Urea Nitrogen 18 mg/dL (8-23); Calcium 8.7 mg/dL (8.5-10.5); Carbon Dioxide 27 mmol/L (22-29); Chloride 101 mmol/L (98-107); Glucose 145 mg/dL (65-115); Osmolality Calculated 292 mOsm/kg (285-295); Potassium 3.2 mmol/L (3.5-5.1); Sodium 139 mmol/L (136-145); Total Bilirubin 0.4 mg/dL (0.15-1.2); Total Protein 6.8 g/dL (6.6-8.7)
== END 2024-03-30 23:59 | disposition home or self-care (01) ==
PROVIDERS: PCP Family Medicine; Visit Provider Nurse Practitioner Family
DX: Z53.9 Procedure and treatment not carried out, unspecified reason (principal); D46.Z Other myelodysplastic syndromes
CPT/HCPCS: 36415; 80053; 82274; 85025

== ENCOUNTER → 2024-04-01 10:57 | Outpatient (BNVA) | payer MEDICARE, SELFPAY | PROVIDERS: PCP Family Medicine; Visit Provider Podiatrist Foot & Ankle Surgery | DX: L60.8 Other nail disorders (principal); I73.9 Peripheral vascular disease, unspecified; L60.2 Onychogryphosis | CPT/HCPCS: 11721 ==

== ENCOUNTER 2024-04-20 09:11 | Oncology outpatient (recurring) (ONCR) | payer MEDICARE, SELFPAY ==
[2024-04-20 09:40] LABS: Basophils # 0.1 10^3/uL (0.0-0.1); Basophils % 2.4 %; Eosinophils # 0.1 10^3/uL (0.0-0.8); Eosinophils % 1.5 %; Hematocrit 37.3 % (36-47); Lymphocytes # 1.7 10^3/uL (0.8-4.8); Lymphocytes % 28.3 %; Mean Corpuscular HGB Conc 31.9 g/dL (30-55); Mean Corpuscular Hemoglobin 30.2 pg (27-33); Mean Corpuscular Volume 94.7 fl (85-98); Mean Platelet Volume 10.4 fL (7.4-10.4); Monocytes # 0.5 10^3/uL (0.2-0.9); Monocytes % 8.1 %; Neutrophils # 3.52 10^3/uL (1.8-7.7); Neutrophils % 59.5 %; Nucleated Red Blood Cells % 0.3 %; Platelet Count 308 10^3/cmm (157-399); Red Blood Count 3.94 10^6/uL (3.85-5.65); Red Cell Distribution Width 20.9 % (12.1-15.1); White Blood Count 5.91 10^3/uL (3.29-11.43)
[2024-04-20 09:56] LABS: Alanine Aminotransferase 15 U/L (0-33); Alkaline Phosphatase 98 U/L (35-105); Anion Gap 14.7 (5-19); Aspartate Amino Transferase 20 U/L (0-32); Blood Urea Nitrogen 13 mg/dL (8-23); Calcium 8.7 mg/dL (8.5-10.5); Carbon Dioxide 24 mmol/L (22-29); Chloride 103 mmol/L (98-107); Globulin 3.2 g/dL (1.3-4.6); Glucose 126 mg/dL (65-115); Osmolality Calculated 288 mOsm/kg (285-295); Potassium 3.7 mmol/L (3.5-5.1); Sodium 138 mmol/L (136-145); Total Bilirubin 0.5 mg/dL (0.15-1.2); Total Protein 7.2 g/dL (6.6-8.7)
== END 2024-04-30 23:59 | disposition home or self-care (01) ==
PROVIDERS: PCP Family Medicine; Visit Provider Nurse Practitioner Family
DX: D46.Z Other myelodysplastic syndromes (principal); Z79.899 Other long term (current) drug therapy
CPT/HCPCS: 36415; 80053; 85025; 99214

== ENCOUNTER → 2024-05-07 13:03 | Outpatient (BNVA) | payer MEDICARE, SELFPAY | PROVIDERS: PCP Family Medicine; Visit Provider Physician Assistant | DX: Z96.659 Presence of unspecified artificial knee joint (principal) | CPT/HCPCS: 73560; 73565; 99213 ==

== ENCOUNTER 2024-05-18 08:07 | Oncology outpatient (recurring) (ONCR) | payer MEDICARE, SELFPAY ==
[2024-05-18 08:59] LABS: Basophils # 0.1 10^3/uL (0.0-0.1); Basophils % 2.2 %; Eosinophils # 0.1 10^3/uL (0.0-0.8); Eosinophils % 1.7 %; Hematocrit 31.9 % (36-47); Lymphocytes # 1.7 10^3/uL (0.8-4.8); Lymphocytes % 31.7 %; Mean Corpuscular HGB Conc 32.3 g/dL (30-55); Mean Corpuscular Hemoglobin 30.9 pg (27-33); Mean Corpuscular Volume 95.8 fl (85-98); Mean Platelet Volume 10.6 fL (7.4-10.4); Monocytes # 0.5 10^3/uL (0.2-0.9); Monocytes % 8.3 %; Neutrophils # 3.02 10^3/uL (1.8-7.7); Neutrophils % 55.9 %; Nucleated Red Blood Cells % 0 %; Platelet Count 306 10^3/cmm (157-399); Red Blood Count 3.33 10^6/uL (3.85-5.65); Red Cell Distribution Width 21.7 % (12.1-15.1)
[2024-05-18 09:00] LABS: Reticulocyte % 1.3 % (0.5-2.0)
[2024-05-18 09:18] LABS: Alanine Aminotransferase 13 U/L (0-33); Alkaline Phosphatase 79 U/L (35-105); Anion Gap 16.8 (5-19); Aspartate Amino Transferase 19 U/L (0-32); Blood Urea Nitrogen 21 mg/dL (8-23); Calcium 9.6 mg/dL (8.5-10.5); Carbon Dioxide 23 mmol/L (22-29); Chloride 101 mmol/L (98-107); Creatinine Clr Calc Pharmacy 40.6106; Ferritin 251 ng/mL (15-150); Glucose 126 mg/dL (65-115); Iron 143 ug/dL (37-145); Lactate Dehydrogenase 192 U/L (135-214); Osmolality Calculated 289 mOsm/kg (285-295); Percent Saturation 47.3 % (20-50); Potassium 3.8 mmol/L (3.5-5.1); Sodium 137 mmol/L (136-145); Total Bilirubin 0.5 mg/dL (0.15-1.2); Total Iron Binding Capacity 302 mcg/dl; Unsaturated Iron Binding 159 ug/dL (112-347)
[2024-05-18 09:34] LABS: Vitamin B12 555 pg/mL (232-1245)
[2024-05-18] MEDS: luspatercept-aamt 25 mg 65.5 MG SUBCUT (11:00)
[2024-05-25 13:44] LABS: Soluble Transferrin Receptor 1.61 mg/L (0.76-1.76)
== END 2024-05-18 23:59 | disposition home or self-care (01) ==
PROVIDERS: Internal Medicine Hematology & Oncology; PCP Family Medicine; Visit Provider Nurse Practitioner Family
DX: D46.Z Other myelodysplastic syndromes; E87.6 Hypokalemia; Z79.899 Other long term (current) drug therapy
CPT/HCPCS: 36415; 80053; 82607; 82728; 82746; 83540; 83550; 83615; 84238; 85025; 85045; 96372; 99214; J0896

== ENCOUNTER 2024-06-08 13:13 | Oncology outpatient (recurring) (ONCR) | payer MEDICARE, SELFPAY ==
[2024-06-08 14:10] LABS: Basophils # 0.2 10^3/uL (0.0-0.1); Eosinophils # 0.2 10^3/uL (0.0-0.8); Hematocrit 32.1 % (36-47); Lymphocytes # 1.8 10^3/uL (0.8-4.8); Lymphocytes % 23.9 %; Mean Corpuscular HGB Conc 32.4 g/dL (30-55); Mean Corpuscular Hemoglobin 31.2 pg (27-33); Mean Corpuscular Volume 96.4 fl (85-98); Mean Platelet Volume 10.8 fL (7.4-10.4); Monocytes # 0.6 10^3/uL (0.2-0.9); Monocytes % 7.9 %; Neutrophils # 4.72 10^3/uL (1.8-7.7); Neutrophils % 63.1 %; Nucleated Red Blood Cells % 0.5 %; Platelet Count 318 10^3/cmm (157-399); Red Blood Count 3.33 10^6/uL (3.85-5.65); Red Cell Distribution Width 22.5 % (12.1-15.1); White Blood Count 7.48 10^3/uL (3.29-11.43)
[2024-06-08 14:28] LABS: Alanine Aminotransferase 12 U/L (0-33); Albumin Level 3.9 g/dL (3.5-5.2); Alkaline Phosphatase 94 U/L (35-105); Anion Gap 15.6 (5-19); Aspartate Amino Transferase 17 U/L (0-32); Blood Urea Nitrogen 17 mg/dL (8-23); Calcium 9.2 mg/dL (8.5-10.5); Carbon Dioxide 24 mmol/L (22-29); Chloride 106 mmol/L (98-107); Globulin 2.6 g/dL (1.3-4.6); Glucose 100 mg/dL (65-115); Lactate Dehydrogenase 216 U/L (135-214); Osmolality Calculated 296 mOsm/kg (285-295); Potassium 3.6 mmol/L (3.5-5.1); Sodium 142 mmol/L (136-145); Total Bilirubin 0.4 mg/dL (0.15-1.2); Total Protein 6.5 g/dL (6.6-8.7)
[2024-06-08] MEDS: luspatercept-aamt 75 mg 65.5 MG SUBCUT (15:43)
== END 2024-06-08 23:59 | disposition home or self-care (01) ==
PROVIDERS: PCP Family Medicine; Visit Provider Nurse Practitioner Family
DX: D46.Z Other myelodysplastic syndromes; E87.6 Hypokalemia; Z79.899 Other long term (current) drug therapy
CPT/HCPCS: 36415; 80053; 83615; 85025; 96372; 99214; J0896

== ENCOUNTER 2024-06-30 07:16 | Oncology outpatient (recurring) (ONCR) | payer MEDICARE, SELFPAY ==
[2024-06-30 07:41] LABS: Basophils # 0.1 10^3/uL (0.0-0.1); Eosinophils # 0.1 10^3/uL (0.0-0.8); Hematocrit 33.6 % (36-47); Lymphocytes # 1.6 10^3/uL (0.8-4.8); Lymphocytes % 22.1 %; Mean Corpuscular HGB Conc 32.1 g/dL (30-55); Mean Corpuscular Hemoglobin 30.7 pg (27-33); Mean Corpuscular Volume 95.5 fl (85-98); Mean Platelet Volume 10.8 fL (7.4-10.4); Monocytes # 0.8 10^3/uL (0.2-0.9); Neutrophils # 4.37 10^3/uL (1.8-7.7); Neutrophils % 61.5 %; Nucleated Red Blood Cells % 0.3 %; Platelet Count 331 10^3/cmm (157-399); Red Blood Count 3.52 10^6/uL (3.85-5.65); Red Cell Distribution Width 22.5 % (12.1-15.1)
[2024-06-30 07:58] LABS: Alanine Aminotransferase 21 U/L (0-33); Albumin Level 3.9 g/dL (3.5-5.2); Alkaline Phosphatase 128 U/L (35-105); Anion Gap 15.9 (5-19); Aspartate Amino Transferase 23 U/L (0-32); Blood Urea Nitrogen 20 mg/dL (8-23); Calcium 9.4 mg/dL (8.5-10.5); Carbon Dioxide 25 mmol/L (22-29); Chloride 102 mmol/L (98-107); Creatinine Clr Calc Pharmacy 35.1472; Globulin 3.1 g/dL (1.3-4.6); Glucose 134 mg/dL (65-115); Osmolality Calculated 293 mOsm/kg (285-295); Potassium 3.9 mmol/L (3.5-5.1); Sodium 139 mmol/L (136-145); Total Bilirubin 0.7 mg/dL (0.15-1.2)
[2024-06-30] MEDS: luspatercept-aamt 25 mg 65.5 MG SUBCUT (09:29)
== END 2024-06-30 23:59 | disposition home or self-care (01) ==
PROVIDERS: Internal Medicine Medical Oncology; PCP Family Medicine; Visit Provider Nurse Practitioner Family
DX: D46.Z Other myelodysplastic syndromes (principal); Z79.899 Other long term (current) drug therapy
CPT/HCPCS: 36415; 80053; 85025; 96372; 99214; J0896

== ENCOUNTER 2024-07-03 13:53 | Outpatient (CLI) | payer MEDICARE, SELFPAY ==
--- NOTE | 2024-07-03 14:05 | XRR_ITS ---
PROCEDURE INFORMATION: Exam: XR Bilateral Hips Exam date and time: 07/03/2024 2:17 PM Age: 83 years old Clinical indication: Hip pain; Bilateral; Additional info: Bilateral hip pain r>l no trauma TECHNIQUE: Imaging protocol: Radiologic exam of the bilateral hips. Views: 2 views of hips with pelvis when performed. COMPARISON: No relevant prior studies available. FINDINGS: Bones/joints: Moderate to severe right hip arthritis. Mild-moderate arthritis left hip. Left hip chondrocalcinosis. Moderate scoliosis and severe spondylosis in the visualized lumbar spine and at the lumbosacral junction. The right superolateral acetabular lip is prominent, and there is buttressing of the lateral right femoral head. This can cause right femoral acetabular impingement. Otherwise, unremarkable. Soft tissues: Otherwise, unremarkable. XR/XR hip BI 3-4V wo/[place] [id number] IMPRESSION: 1. No acute findings. 2. Additional details as above.
== END 2024-07-03 13:54 | disposition home or self-care (01) ==
LOC: RAD 14:02
PROVIDERS: PCP Family Medicine; Visit Provider Nurse Practitioner
DX: M16.11 Unilateral primary osteoarthritis, right hip (principal); M11.252 Other chondrocalcinosis, left hip; M41.86 Other forms of scoliosis, lumbar region; M47.896 Other spondylosis, lumbar region
CPT/HCPCS: 73522

== ENCOUNTER 2024-07-13 12:04 | Observation (INO) | payer MEDICARE, SELFPAY ==
[2024-07-13] VITALS (14 sets, daily range): BP systolic 111–182; BP diastolic 79–102; PULSE 88–97; RESP 14–18; TEMP 36.9; O2SAT 92–96
--- NOTE | 2024-07-13 12:08 | XR_ITS ---
WS: [id number] XR hip LT 2-3V wo/w pel* [id number] REASON FOR EXAM: fall FINDINGS: The superior and inferior pubic rami are intact. The acetabulum appears intact. There is a subtle cortical deformity at the junction of the femoral neck and head which potentially r epresents an occult nondisplaced partial subcapital fracture of the femoral neck. This abnormality is not identified on the previous examination of 07/03/2024. The remainder of the femur is intact. XR/XR hip LT 2-3V wo/w pel* [id number] IMPRESSION: Potential acute hip fracture as above.
--- NOTE | 2024-07-13 12:08 | CT_ITS ---
WS: [id number] CT ABDOMEN PELVIS TECHNIQUE: Noncontrast CT of the abdomen and pelvis with coronal and sagittal reformatted images. CLINICAL INFORMATION: fall/back hip flank pain COMPARISON: None. DLP: 601.[address] scans at [facility] use at least one of these dose optimization techniques: automated e xposure control; mA and/or kV adjustment per patient size (includes targeted exams where dose is matc hed to clinical indication); or iterative reconstruction. FINDINGS: Osteopenia. Comminuted fractures of the LEFT superior and inferior pubic rami anteriorly at the pubic symphysis. Associated edema. In addition bilateral sacral ala fractures at the sacral inlet with cor tical step-off. Midline sacral fracture with cortical buckling at the S3 segment. No visualized acute hip fractures. Chronic appearing compression fracture with anterior wedging at L2 with chronic retropulsion of the posterior superior cortex results in mild to moderate central canal stenosis. Lung bases are well aerated. Subsegmental atelectasis RIGHT lower lobe. Coronary calcification. Sussy l noncontrast liver. Normal noncontrast spleen. Small esophageal hernia. Fatty atrophy of the pancrea s. Adrenal glands are normal. No hydronephrosis in either kidney. Normal caliber abdominal aorta. Tin y fat-containing umbilical hernia. Sigmoid diverticulosis. No evidence of acute diverticulitis. Prominent disc osteophyte protrusions L2-L3 L3-L4 and L4-L5. Moderate central canal stenosis L2-3 wit h impingement on the LEFT subarticular recess. CT/CT kidney stone [id number] IMPRESSION: 1. Bilateral vertically oriented sacral ala fractures. 2. Comminuted LEFT superior and inferior pubic rami fractures at the pubic sym physis. Associated soft tissue edema. 3. Midline S3 sacral segment fracture with cortical buckling. 4. Osteopenia. 5. Chronic appearing compression fracture L2 vertebral body with anterior wedg ing and mild retropulsion. Mild central canal stenosis. 6. Prominent disc osteophyte protrusions L2-L4 with mild to moderate central c anal stenosis worse at L2-3. 7. Small esophageal hiatal hernia.
--- NOTE | 2024-07-13 12:09 | ED_ITS ---
HPI - Back Pain/Injury 2 General: Chief Complaint: Back Pain/Injury Stated Complaint: left hip/back pain Time Seen by Provider: 07/13/24 12:06 Source: patient Mode of arrival: ambulatory Limitations: no limitations History of Present Illness: 83-year-old female who states that she h ad a fall 3 days ago hit her left hip and lower back been having increasing pain since and states this morning her pain was a 10 out of 10 and was having severe pain with walking states she has been able to walk with a walker. She denies hitting her head denies any neck pain. Associated symptoms: Deny abdominal pain, chills, fever(s), nausea or vomiting Related Data Home Medications Medication Instructions Recorded Confirmed lisinopril 20 1 tab PO QPM 08/04/19 07/13/24 mg-hydrochlorothiazide 25 mg tablet (Zestoretic) donepezil 10 mg tablet 10 mg PO QPM 02/20/23 07/13/24 gabapentin 300 mg capsule 300 mg PO QPM PRN nerve pain 02/20/23 07/13/24 levothyroxine 25 mcg tablet 25 mcg PO QAM 02/20/23 07/13/24 pentoxifylline 400 mg 400 mg PO QPM 04/20/24 07/13/24 tablet,extended release acetaminophen 300 mg-codeine 60 mg 1 - 2 tab PO Q4H PRN pain 07/13/24 07/13/24 tablet amlodipine 2.5 mg tablet 2.5 mg PO QPM 07/13/24 07/13/24 celecoxib 200 mg capsule (Celebrex) 200 mg PO QPM 07/13/24 07/13/24 pantoprazole 40 mg tablet,delayed 40 mg PO BID PRN Acid Reflux 07/13/24 07/13/24 release Previous Rx's Medication Instructions Recorded potassium chloride 20 mEq 20 meq PO TID #30 tabs 11/11/23 tablet,extended release Allergies Allergy/AdvReac Type Severity Reaction Status Date / Time erythromycin base Allergy Mild ALGY-Rash Verified 06/30/24 07:46 [From Erythrocin] Sulfa (Sulfonamide Allergy Mild ALGY-Rash Verified 06/30/24 07:46 Antibiotics) terbinafine Allergy Mild ADR-Insomni Verified 06/30/24 07:46 a tramadol Allergy Mild Unknown Verified 06/30/24 07:46 adhesive tape AdvReac Mild ADR-Nausea Verified 06/30/24 07:46 clindamycin AdvReac Mild ADR-Diarrhe Verified 06/30/24 07:46 a naproxen [From Naprosyn] AdvReac Mild ADR-Nausea Verified 06/30/24 07:46 Review of Systems 2 Const: Denies: fever(s), chills, body aches or change in appetite ENMT: Denies: throat pain or dental pain Card: Denies: chest pain Resp: Denies: dyspnea GI: Denies: abdominal pain, nausea, vomiting or diarrhea Musc: Reports: extremity pain; Denies: neck pain or back pain Skin/Breast: Denies: rash Neuro: Denies: headache(s) PFSH ED 2 PFSH: Medical History 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 MDS (myelodysplastic syndrome), low grade Macrocytic anemia Memory difficulty Hypertension Arthritis Thyroid disease History of osteomyelitis Surgical History History of bladder repair surgery History of hysterectomy Family History Other Cancer Dementia Denies family history of Diabetes CAD (coronary artery disease) Clotting disorder Hyperlipidemia Psychiatric illness Chronic kidney disease (CKD) Suicide Anesthesia complication Bleeding disorder Family history of premature coronary artery disease Lung disease Hypertension Stroke Social History Smoking and tobacco/nicotine status: never used tobacco/nicotine Second hand smoke exposure: No Alcohol intake: never Substance/Drug Use: never Lives independently: Yes Household members: spouse Marital status: Current occupational status: retired Physical Exam 2 Const: COMMON NORMALS: no acute distress, patient oriented x3 and healthy appearing HENMT: COMMON NORMALS: normocephalic and atraumatic HEAD & SCALP: n ormocephalic and atraumatic Eye: COMMON NORMALS: conjunctivae normal CONJUNCTIVA: Yes conjunctivae normal Neck/C-Spine: COMMON NORMALS: full ROM and supple Chest: COMMONS NORMALS: normal inspection of the chest Resp: COMMON NORMALS: normal respiratory effort Cardio: COMMON NORMALS: regular rate, regular rhythm and No murmurs present (Cardio) RATE: regular rate RHYTHM: regular rhythm GI: COMMON NORMALS: Normal to inspection, nondistended, normoactive bowel sounds present, Soft to palpation, non-tender and no masses PALPATION: Yes Soft to palpation Extremity: NARRATIVE EXTREMITY EXAM: Tenderness noted to the left hip left lower back and flank she does have full range of motion distal pulses intact no shortening or rotation Neuro: COMMON NORMALS: patient oriented x3, moves all extremities and no focal motor deficits Psych: COMMON NORMALS: mental status grossly normal, Normal thought process present and cooperative THOUGHT PROCESS: Normal thought process present Skin: COMMON NORMALS: no rashes or lesions noted and no wounds GENERAL SKIN EXAM: no rashes or lesions noted Course 2 Vital Signs: Vital signs: Vital Signs Temperature 98.4 F 07/13/24 12:04 Pulse Rate 89 07/13/24 13:05 Respiratory Rate 16 07/13/24 13:05 Blood Pressure 180/90 07/13/24 13:05 Pulse Oximetry 95 07/13/24 13:05 Oxygen Delivery Me thod Room Air 07/13/24 13:05 MDM - Back Pain/Injury Medical Decision Making Patient presents here with pelvic fracture also found of UTI she is having some difficulty walking here did speak to the hospitalist will admit at this time as she is not really able to ambulate or take care of herself I spoke to Dr. Thomas orthopedist will consult Medical Records I reviewed the patient's medical records. Labs I reviewed the patient's lab results. 07/13/24 12:15 07/13/24 12:15 Radiology Impressions Abdomen/Pelvis CT 07/13/24 12:08 IMPRESSION: 1. Bilateral vertically oriented sacral ala fractures. 2. Comminuted LEFT superior and inferior pubic rami fractures at the pubic symphysis. Associated soft tissue edema. 3. Midline S3 sacral segment fracture with cortical buckling. 4. Osteopenia. 5. Chronic appearing compression fracture L2 vertebral body with anterior wedging and mild retropulsion. Mild central canal stenosis. 6. Prominent disc osteophyte protrusions L2-L4 with mild to moderate central canal stenosis worse at L2-3. 7. Small esophageal hiatal hernia. Hip/Pelvis X-Ray 07/13/24 12:08 IMPRESSION: Potential acute hip fracture as above. Laboratory Results WBC 17.63 10^3/uL (3.29-11.43) H 07/13/24 12:15 RBC 3.77 10^6/uL (3.85-5.65) L 07/13/24 12:15 Hgb 11.40 g/dL (11.27-16.99) 07/13/24 12:15 Hct 35.6 % (36-47) L 07/13/24 12:15 MCV 94.4 fl (85-98) 07/13/24 12:15 MCH 30.2 pg (27-33) 07/13/24 12:15 MCHC 32.0 g/dL (30-55) 07/13/24 12:15 RDW 22.7 % (12.1-15.1) H 07/13/24 12:15 Plt Count 453 10^3/cmm (157-399) H 07/13/24 12:15 MPV 10.8 fL (7.4-10.4) H 07/13/24 12:15 Neut % (Auto) 88.4 % 07/13/24 12:15 Lymph % (Auto) 6.1 % 07/13/24 12:15 [place] % (Auto) 3.9 % 07/13/24 12:15 Eos % (Auto) 0.0 % 07/13/24 12:15 Baso % (Auto) 0.5 % 07/13/24 12:15 Neut # (Auto) 15.58 10^3/uL (1.8-7.7) H 07/13/24 12:15 Lymph # (Auto) 1.1 10^3/uL (0.8-4.8) 07/13/24 12:15 [place] # (Auto) 0.7 10^3/uL (0.2-0.9) 07/13/24 12:15 Eos # (Auto) 0.0 10^3/uL (0.0-0.8) 07/13/24 12:15 Baso # (Auto) 0.1 10^3/uL (0.0-0.1) 07/13/24 12:15 Nucleated RBC % (auto) 0.1 % 07/13/24 12:15 Nucleated RBCs # 0.0 /100WBC 07/13/24 12:15 Sodium 141 mmol/L (136-145) 07/13/24 12:15 Potassium 3.1 mmol/L (3.5-5.1) L 07/13/24 12:15 Chloride 104 mmol/L (98-107) 07/13/24 12:15 Carbon Dioxide 23 mmol/L (22-29) 07/13/24 12:15 Anion Gap 17.1 (5-19) 07/13/24 12:15 BUN 25 mg/dL (8-23) H 07/13/24 12:15 Creatinine 0.9 mg/dL (0.5-0.9) 07/13/24 12:15 GFR Calculation Not Reportable 07/13/24 12:15 Glucose 152 mg/dL (65-115) H 07/13/24 12:15 Calculated Osmolality 299 mOsm/kg (285-295) H 07/13/24 12:15 Calcium 9.0 mg/dL (8.5-10.5) 07/13/24 12:15 Urine Color Yellow (Yellow) 07/13/24 13:04 Urine Appearance Turbid (CLEAR) A 07/13/24 13:04 Urine pH 8.0 (5-7) A 07/13/24 13:04 Ur Specific [place] 1.026 (1.005-1.030) 07/13/24 13:04 Urine Protein 2+ (Negative) A 07/13/24 13:04 Urine Glucose (UA) Negative (Normal) 07/13/24 13:04 Urine Ketones Negative (Negative) 07/13/24 13:04 Urine Blood 3+ (Negative) A 07/13/24 13:04 Urine Nitrate Positive (Negative) A 07/13/24 13:04 Urine Bilirubin Negative (Negative) 07/13/24 13:04 Urine Urobilinogen 1.0 mg/dL (Negative) 07/13/24 13:04 Ur Leukocyte Esterase 1+ (Negative) A 07/13/24 13:04 Urine RBC 0-4 /hpf (0-2) H 07/13/24 13:04 Urine WBC 10-15 /hpf (0-5) H 07/13/24 13:04 Ur Squamous Epith Cells 0-4 /hpf (0-5) H 07/13/24 13:04 Triple Phos Crystals 15-25 /hpf H 07/13/24 13:04 Amorphous Sediment Not Reportable 07/13/24 13:04 Urine Bacteria 4+ /hpf (NONE) H 07/13/24 13:04 Hyaline Casts 0-4 /lpf H 07/13/24 13:04 Urine Mucus Trace /hpf 07/13/24 13:04 All radiology interpretation(s) finalized by discharge Discharge Plan Discharge Patient Disposition: Admitted As Inpatient Clinical Impression: Acute UTI, Closed pelvic fracture, Fall Condition: Stable Coding Level of Care Code ED Survey Researcher for Billy Madrigal
[2024-07-13 12:21] LABS: Basophils # 0.1 10^3/uL (0.0-0.1); Basophils % 0.5 %; Hematocrit 35.6 % (36-47); Lymphocytes # 1.1 10^3/uL (0.8-4.8); Lymphocytes % 6.1 %; Mean Corpuscular Hemoglobin 30.2 pg (27-33); Mean Corpuscular Volume 94.4 fl (85-98); Mean Platelet Volume 10.8 fL (7.4-10.4); Monocytes # 0.7 10^3/uL (0.2-0.9); Monocytes % 3.9 %; Neutrophils # 15.58 10^3/uL (1.8-7.7); Neutrophils % 88.4 %; Nucleated Red Blood Cells % 0.1 %; Platelet Count 453 10^3/cmm (157-399); Red Blood Count 3.77 10^6/uL (3.85-5.65); Red Cell Distribution Width 22.7 % (12.1-15.1); White Blood Count 17.63 10^3/uL (3.29-11.43)
[2024-07-13] MEDS: morphine 4 mg/mL SDV 1 mL IVP ×2 (12:32→15:57)
[2024-07-13] MEDS: ondansetron 2 mg/ML SDV 2 mL 4 MG IVP (12:32)
[2024-07-13 12:38] LABS: Anion Gap 17.1 (5-19); Blood Urea Nitrogen 25 mg/dL (8-23); Carbon Dioxide 23 mmol/L (22-29); Chloride 104 mmol/L (98-107); Creatinine Clr Calc Pharmacy 46.0349; Glucose 152 mg/dL (65-115); Osmolality Calculated 299 mOsm/kg (285-295); Potassium 3.1 mmol/L (3.5-5.1); Sodium 141 mmol/L (136-145)
--- NOTE | 2024-07-13 12:55 | PC.PHAR ---
Some of pts' medications had older fill dates-verified with [facility] to make sure.
[2024-07-13 13:09] LABS: Bilirubin Urine Negative (Negative); Blood Urine 3+ (Negative); Glucose Urine UA Negative (Normal); Ketones Urine Negative (Negative); Leukocyte Esterase Urine 1+ (Negative); Nitrate Urine Positive (Negative); Protein Urine 2+ (Negative); Specific Gravity, Urine 1.026 (1.005-1.030); Urine Appearance Turbid (CLEAR); Urine Color Yellow (Yellow)
[2024-07-13 13:12] LABS: Add Urine Microscopic? YES
[2024-07-13 13:35] LABS: Bacteria Urine 4+ /hpf; RBC Urine 0-4 /hpf (0-2); Squamous Epithelial Cell Urine 0-4 /hpf (0-5); UA Manual Slide Review YES; UA Slide Review UA Slide Review Perf
[2024-07-13 13:36] LABS: Mucus Urine TRACE /hpf; Triple Phosphate Crystal Urine 15-25 /hpf
[2024-07-13 13:38] LABS: Hyaline Casts Urine 0-4 /lpf
[2024-07-13 13:39] LABS: Add Urine Culture? Yes
--- NOTE | 2024-07-13 14:43 | P.HP_ITS ---
Providers/Chief Complaint 2 Primary Care Provider: Brian Norris MD Chief Complaint: left hip/back pain History of Present Illness Sole Luna is a 83 year old female Past medical history of mild dysplastic syndrome, mild dementia, arthritis, hypothyroidism, hypertension, history of osteomyelitis who presented to the hospital after mechanical fall. She states that she was standing in her dining room and reached out for the chair while picking up papers off the floor and chair fell down along with her falling to the ground as well. It was purely a mechanical fall. Denies any lightheadedness or prodromal symptoms prior to the fall. Denies dizziness. Denies any chest pain shortness of breath nausea vomiting diarrhea constipation abdominal pain. She is accompanied by her at this time. In ER abdomen CT pelvis was obtained which showed a 1. Bilateral vertically oriented sacral ala fractures. 2. Comminuted LEFT superior and inferior pubic rami fractures at the pubic symphysis. Associated soft tissue edema. 3. Midline S3 sacral segment fracture with cortical buckling. 4. Osteopenia. 5. Chronic appearing compression fracture L2 vertebral body with anterior wedging and mild retropulsion. Mild central canal stenosis. 6. Prominent disc osteophyte protrusions L2-L4 with mild to moderate central canal stenosis worse at L2-3. 7. Small esophageal hiatal hernia. Medications/Allergies Home Medications Medication Instructions Recorded Confirmed Last Taken Type lisinopril 20 1 tab PO QPM 08/04/19 07/13/24 07/12/24 History mg-hydrochlorothiazide 25 mg tablet (Zestoretic) donepezil 10 mg tablet 10 mg PO QPM 02/20/23 07/13/24 07/12/24 History gabapentin 300 mg capsule 300 mg PO QPM PRN nerve pain 02/20/23 07/13/24 07/12/24 History levothyroxine 25 mcg tablet 25 mcg PO QAM 02/20/23 07/13/24 07/13/24 History potassium chloride 20 mEq 20 meq PO TID #30 tabs 11/11/23 07/13/24 Unknown Rx tablet,extended release pentoxifylline 400 mg 400 mg PO QPM 04/20/24 07/13/24 07/12/24 History tablet,extended release acetaminophen 300 mg-codeine 60 mg 1 - 2 tab PO Q4H PRN pain 07/13/24 07/13/2407/12/25 History tablet amlodipine 2.5 mg tablet 2.5 mg PO QPM 07/13/24 07/13/24 07/12/24 History celecoxib 200 mg capsule (Celebrex) 200 mg PO QPM 07/13/24 07/13/24 07/12/24 History pantoprazole 40 mg tablet,delayed 40 mg PO BID PRN Acid Reflux 07/13/24 07/13/24 Unknown History release Allergies Allergy/AdvReac Type Severity Reaction Status Date / Time erythromycin base Allergy Mild ALGY-Rash Verified 06/30/24 07:46 [From Erythrocin] Sulfa (Sulfonamide Allergy Mild ALGY-Rash Verified 06/30/24 07:46 Antibiotics) terbinafine Allergy Mild ADR-Insomni Verified 06/30/24 07:46 a tramadol Allergy Mild Unknown Verified 06/30/24 07:46 adhesive tape AdvReac Mild ADR-Nausea Verified 06/30/24 07:46 clindamycin AdvReac Mild ADR-Diarrhe Verified 06/30/24 07:46 a naproxen [From Naprosyn] AdvReac Mild ADR-Nausea Verified 06/30/24 07:46 PFSH Acute 2 PFSH: Medical History 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 MDS (myelodysplastic syndrome), low grade Macrocytic anemia Memory difficulty Hypertension Arthritis Thyroid disease History of osteomyelitis Surgical History History of bladder repair surgery History of hysterectomy Family History Other Cancer Dementia Denies family history of Diabetes CAD (coronary artery disease) Clotting disorder Hyperlipidemia Psychiatric illness Chronic kidney disease (CKD) Suicide Anesthesia complication Bleeding disorder Family history of premature coronary artery disease Lung disease Hypertension Stroke Social History Smoking and tobacco/nicotine status: never used tobacco/nicotine Second hand smoke exposure: No Alcohol intake: never Substance/Drug Use: never Lives independently: Yes Household members: spouse Marital status: Current occupational status: retired Vitals/I&O/Wt Last Vital Signs Temp 98.4 F 07/13/24 12:04 Pulse 89 07/13/24 13:05 Resp 16 07/13/24 13:05 BP 180/90 07/13/24 13:05 Pulse Ox 95 07/13/24 13:05 O2 Del Method Room Air 07/13/24 13:05 Weight last 48 hrs Weight 65.771 kg Physical Exam 2 Narrative: General: Alert oriented x3, patient seen laying in bed appearing comfortable at this time no acute distress. Noted to be slightly hypertensive secondary to pain. HEENT: Normocephalic, atraumatic, EOMI, reading room air. Cardio: Regular rate rhythm, normal S1-S2, Respiratory: Good bilateral air entry, no wheezes no rhonchi appreciated GI: Abdomen soft, nontender, nondistended, bowel sounds + Behavior: Appropriate and cooperative Extremities: Within normal limits. Did not attempt range of motion secondary to pelvic fracture. Will await for orthopedic evaluation prior to attempting to move patient. Mild swelling noted around hip area. 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 Orthopedic surgery consulted from ER will await recommendations regarding activity ? Consult PT OT ? Pain management. Placed on morphine 4 mg every 4 hours as needed ? Will transition to oral pain medication in AM. ? Continue levothyroxine 25 daily ? Continue lisinopril, donepezil, celecoxib ? UA abnormal. Suggestive of UTI. Will place on ceftriaxone 1 g daily ? Check urine culture ? Continue gabapentin, hydrochlorothiazide ? After PT eval patient may be able to discharge home versus [facility]. Patient's is on dialysis and she will be alone for several hours a day. We will have to ensure she is safe to go home. Full code DVT prophylaxis: Lovenox 40 daily Attestations 2 Medical Necessity Statement*: Greater than 2 midnight stay for nondisplaced sacral fracture. 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
[2024-07-13] MEDS: cefTRIAXone 1,000 mg SDV 1000 MG IVP (15:01)
[2024-07-13] MEDS: donepezil 5 MG Tablet 10 MG PO (17:49)
[2024-07-13] MEDS: amlodipine 5 mg Tablet 2.5 MG PO (17:49)
[2024-07-13] MEDS: lisinopril 20 mg Tablet PO (17:50)
[2024-07-13] MEDS: hydroCHLOROthiazide 25 mg Tablet PO (17:50)
[2024-07-13] MEDS: CELEcoxib 200 mg Capsule PO (17:51)
[2024-07-13] MEDS: potassium chloride ER 20 mEq Tablet PO (20:47)
--- NOTE | 2024-07-13 21:19 | PC.NURSE ---
Pharmacy called about home medication, pentoxifylline. This nurse spoke with family who were in the room visiting the patient, they stated they would bring her home medications up tomorrow.
[2024-07-14] VITALS (9 sets, daily range): BP systolic 126–166; BP diastolic 77–105; PULSE 80–91; RESP 15–20; TEMP 36.9–37.2; O2SAT 93–98; BMI 24.1
[2024-07-14] MEDS: morphine 4 mg/mL SDV 1 mL IVP (01:31)
[2024-07-14 05:41] LABS: Basophils # 0.1 10^3/uL (0.0-0.1); Basophils % 1.4 %; Eosinophils # 0.1 10^3/uL (0.0-0.8); Eosinophils % 1.2 %; Hematocrit 32.4 % (36-47); Lymphocytes # 1.7 10^3/uL (0.8-4.8); Lymphocytes % 22.9 %; Mean Corpuscular HGB Conc 31.5 g/dL (30-55); Mean Corpuscular Hemoglobin 29.8 pg (27-33); Mean Corpuscular Volume 94.7 fl (85-98); Monocytes # 0.7 10^3/uL (0.2-0.9); Monocytes % 9.1 %; Neutrophils # 4.72 10^3/uL (1.8-7.7); Neutrophils % 64.3 %; Nucleated Red Blood Cells % 0.3 %; Platelet Count 404 10^3/cmm (157-399); Red Blood Count 3.42 10^6/uL (3.85-5.65); Red Cell Distribution Width 22.4 % (12.1-15.1); White Blood Count 7.34 10^3/uL (3.29-11.43)
[2024-07-14] MEDS: levothyroxine 25 mcg Tablet PO (06:01)
[2024-07-14 06:26] LABS: Alanine Aminotransferase 12 U/L (0-33); Albumin Level 3.2 g/dL (3.5-5.2); Alkaline Phosphatase 165 U/L (35-105); Anion Gap 12.8 (5-19); Aspartate Amino Transferase 16 U/L (0-32); Blood Urea Nitrogen 24 mg/dL (8-23); Calcium 8.8 mg/dL (8.5-10.5); Carbon Dioxide 26 mmol/L (22-29); Chloride 106 mmol/L (98-107); Creatinine Clr Calc Pharmacy 46.9735; Globulin 2.7 g/dL (1.3-4.6); Glucose 121 mg/dL (65-115); Magnesium 1.9 mg/dL (1.7-2.3); Osmolality Calculated 297 mOsm/kg (285-295); Potassium 3.8 mmol/L (3.5-5.1); Sodium 141 mmol/L (136-145); Total Bilirubin 0.5 mg/dL (0.15-1.2); Total Protein 5.9 g/dL (6.6-8.7)
--- NOTE | 2024-07-14 08:21 | P.CONIM_ITS ---
Providers/Reason For Consult 2 Consulting Physician/Specialty*: Hospitalist Reason for Consult*: Pelvic fracture Attending Physician: Christina Chun MD Primary Care Provider: Brian Norris MD History of Present Illness History of Present Illness Sole Luna is a 83 year old female had a fall 3 days ago hit her left hip and lower back been having increasing pain since and states this morning her pain was a 10 out of 10 and was having severe pain with walking states she has been able to walk with a walker. She denies hitting her head denies any neck pain. Patient is more is not complaining of pain was resting comfortably in bed. Review of Systems 2 Const: Denies: fever(s), chills, body aches or change in appetite ENMT: Denies: throat pain or dental pain Card: Denies: chest pain Resp: Denies: dyspnea GI: Denies: abdominal pain, nausea, vomiting or diarrhea Musc: Reports: extremity pain; Denies: neck pain or back pain Skin/Breast: Denies: rash Neuro: Denies: headache(s) Medications/Allergies Home Medications Medication Instructions Recorded Confirmed Last Taken Type lisinopril 20 1 tab PO QPM 08/04/19 07/13/24 07/12/24 History mg-hydrochlorothiazide 25 mg tablet (Zestoretic) donepezil 10 mg tablet 10 mg PO QPM 02/20/23 07/13/24 07/12/24 History gabapentin 300 mg capsule 300 mg PO QPM PRN nerve pain 02/20/23 07/13/24 07/12/24 History levothyroxine 25 mcg tablet 25 mcg PO QAM 02/20/23 07/13/24 07/13/24 History potassium chloride 20 mEq 20 meq PO TID #30 tabs 11/11/23 07/13/24 Unknown Rx tablet,extended release pentoxifylline 400 mg 400 mg PO QPM 04/20/24 07/13/24 07/12/24 History tablet,extended release acetaminophen 300 mg-codeine 60 mg 1 - 2 tab PO Q4H PRN pain 07/13/24 07/13/24 07/12/24 History tablet amlodipine 2.5 mg tablet 2.5 mg PO QPM 07/13/24 07/13/24 07/12/24 History celecoxib 200 mg capsule (Celebrex) 200 mg PO QPM 07/13/24 07/13/24 07/12/24 History pantoprazole 40 mg tablet,delayed 40 mg PO BID PRN Acid Reflux 07/13/24 07/13/24 Unknown History release Allergies Allergy/AdvReac Type Severity Reaction Status Date / Time erythromycin base Allergy Mild ALGY-Rash Verified 06/30/24 07:46 [From Erythrocin] Sulfa (Sulfonamide Allergy Mild ALGY-Rash Verified 06/30/24 07:46 Antibiotics) terbinafine Allergy Mild ADR-Insomni Verified 06/30/24 07:46 a tramadol Allergy Mild Unknown Verified 06/30/24 07:46 adhesive tape AdvReac Mild ADR-Nausea Verified 06/30/24 07:46 clindamycin AdvReac Mild ADR-Diarrhe Verified 06/30/24 07:46 a naproxen [From Naprosyn] AdvReac Mild ADR-Nausea Verified 06/30/24 07:46 Current Medications Generic Name Dose Route Start Last Admin Trade Name Freq PRN Reason Stop Dose Admin Amlodipine Besylate 2.5 mg 07/13/24 18:00 07/13/24 17:49 Amlodipine 5 Mg Tablet PO 2.5 mg QPM HANANE Administration Ceftriaxone Sodium 1,000 mg 07/13/24 14:45 07/13/24 15:01 Ceftriaxone 1,000 Mg Sdv IVP 1,000 mg Q24H HANANE Administration Protocol Celecoxib 200 mg 07/13/24 18:00 07/13/24 17:51 Celecoxib 200 Mg Capsule PO 200 mg QPM HANANE Administration Donepezil HCl 10 mg 07/13/24 18:00 07/13/24 17:49 Donepezil 5 Mg Tablet PO 10 mg QPM HANANE Administration Hydrochlorothiazide 25 mg 07/13/24 18:00 07/13/24 17:50 Hydrochlorothiazide 25 Mg Tablet PO 25 mg QPM HANANE Administration Levothyroxine Sodium 25 mcg 07/14/24 06:00 07/14/24 06:01 Levothyroxine 25 Mcg Tablet PO 25 mcg QAM HANANE Administration Lisinopril 20 mg 07/13/24 18:00 07/13/24 17:50 Lisinopril 20 Mg Tablet PO 20 mg QPM HANANE Administration Morphine Sulfate 4 mg 07/13/24 15:05 07/14/24 01:31 Morphine 4 Mg/Ml Sdv 1 Ml IVP 4 mg Q6H PRN Administration SEVERE PAIN Potassium Chloride 20 meq 07/13/24 21:00 07/13/24 20:47 Potassium Chloride Er 20 Meq Tablet PO 20 meq TID HANANE Administration PFSH Acute 2 PFSH: Medical History 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 MDS (myelodysplastic syndrome), low grade Macrocytic anemia Memory difficulty Hypertension Arthritis Thyroid disease History of osteomyelitis Surgical History History of bladder repair surgery History of hysterectomy Family History Other Cancer Dementia Denies family history of Diabetes CAD (coronary artery disease) Clotting disorder Hyperlipidemia Psychiatric illness Chronic kidney disease (CKD) Suicide Anesthesia complication Bleeding disorder Family history of premature coronary artery disease Lung disease Hypertension Stroke Social History Smoking and tobacco/nicotine status: never used tobacco/nicotine Second hand smoke exposure: No Alcohol intake: never Substance/Drug Use: never Lives independently: Yes Household members: spouse Marital status: Current occupational status: retired Vitals/I&O/Wt Last Vital Signs Temp 98.4 F 07/14/24 07:19 Pulse 82 07/14/24 07:19 Resp 15 07/14/24 07:19 BP 154/79 07/14/24 07:19 Pulse Ox 93 07/14/24 07:19 O2 Del Method Room Air 07/14/24 07:19 07/13/24 07/14/24 07/14/24 22:59 06:59 14:59 Intake Total 240 / 240 Output Total 400 / 400 Balance -160 / -160 Weight last 48 hrs Weight 151 lb 12.8 oz Weight 145 lb Weight 145 lb Physical Exam 2 Narrative: Alert and oriented x 3 Head is normocephalic atraumatic Respirations are intact No evidence of any rashes or infection 5/5 strength in bilateral upper and lowe r extremities Sensation intact in all extremities Deep tendon reflexes 2 out of 4 bilateral upper and lower extremities Urinary Catheter Management: Joy: Cath Placed During This Visit: yes Reason for Continuing Indwelling Catheter: Required Immobilization for Trauma or Surgery or Anesthesia Urinary Catheter Date of Insertion: 07/13/24 Urinary Catheter Time of Insertion: 16:47 Data 07/14/24 04:56 07/14/24 04:56 Micro: Microbiology 07/13/24 15:48 Blood Culture - Preliminary Blood SPECIMEN COLLECTED 07/13/24 15:44 Blood Culture - Preliminary Blood SPECIMEN COLLECTED A&P Assessment and plan (1) Closed pelvic fracture: Patient has a left ankle MRI as well as nondisplaced sacral fracture. At this point we will treat nonoperatively. Patient can weight-bear as tolerated pain control with a walker. Qualifiers: Encounter type: initial encounter Pelvic bone location: multiple parts Fracture alignment: with stable disruption of pelvic ring Qualified Code(s): S 32.810A - Multiple fractures of pelvis with stable disruption of pelvic ring, initial encounter for closed fracture Consult Attestations 2 Medical Necessity Statement: Per primary service Coding Level of Care Code Acute Code for Chg Fwd Diagnoses Multiple closed fractures of pelvis with stable disruption of pelvic ring, initial encounter S32.810A Encounter type: initial encounter Pelvic bone location: multiple parts Fracture alignment: with stable disruption of pelvic ring
[2024-07-14] MEDS: potassium chloride ER 20 mEq Tablet PO ×3 (08:28→20:24)
--- NOTE | 2024-07-14 09:48 | PC.CHAP ---
Pastoral Care Encounter/Spiritual Assessment Type of Contact [] Declined real estate agent/broker visit [] Patient/Family/Request visit [] Outpatient visit [] Follow-up visit [] Physician referral [] Code/Alert [] Routine visit [] Staff referral [] Actively dying [] Patient sleeping [] Family support [] [] Out of room [] Palliative care [] [x] Receiving care in room [] Pre-surgical visit [] Trauma [] Long length of stay [] ICU visit [] Other: Relational/Emotional Strength [] Patient feels connected with others/family/visitors/staff [] Distress [] Loneliness/isolation [] Abandonment Spirituality of Patient [] Person of [place] [] Attends Orthodoxy of their [place] [] Believes in Prayer [] Reads Bible or Jew materials [] There are Spiritual issues to be addressed Technician Biological Health Interventions [] Prayer [] Active listening [] Non-anxious presence [] Spiritual/emotional support [] Crisis/trauma care [] Spiritual counseling [] Bereavement support [] Provided bereavement packet [] Provided Bible/devotional materials [] Provided toy/stuffed animal, coloring book to patient or family member [] Provided Communion [] Anointing/[place] [] Salvation [] Completed spiritual assessment [] Other: Impact on Illness or Injury [] Angry [] Fearful [] Anxious [] Often cries [] Exhaustion [] Unable to work [] Unable to attend jew [] Unable to walk/stand [] Unable to read [] Unable to drive [] Unable to eat/drink [] Unable to sleep [] Unable to be with family [] Patient intubated [] Other: Summary Time spent with patient
[2024-07-14] MEDS: HYDROcodone-acetaminophen 5-325 mg Tablet 1 TAB PO ×2 (11:07→20:24)
--- NOTE | 2024-07-14 11:19 | P.PN_ITS ---
Subjective 2 Subjective: Seen today. Patient sitting up in bed with physical therapy present. She is unsure if she wants to go to SNF versus home. ? No acute events overnight. ? Pain is better controlled than admission. Vitals/I&O/Wt Last Vital Signs Temp 98.4 F 07/14/24 07:19 Pulse 82 07/14/24 07:19 Resp 15 07/14/24 07:19 BP 154/79 07/14/24 07:19 Pulse Ox 93 07/14/24 07:19 O2 Del Method Room Air 07/14/24 07:19 07/13/24 07/14/24 07/14/24 22:59 06:59 14:59 Intake Total 240 / 240 120 / 120 Output Total 400 / 400 Balance -160 / -160 120 / 120 Weight last 48 hrs Weight 68.855 kg Weight 65.771 kg Weight 65.771 kg Physical Exam 2 Narrative: General: Alert oriented x3, HEENT: Normocephalic, atraumatic, EOMI, reading room air. Cardio: Regular rate rhythm, normal S1-S2, Respiratory: Good bilateral air entry, no wheezes no rhonchi appreciated GI: Abdomen soft, nontender, nondistended, bowel sounds + Extremities: No edema bilateral lower extremities Urinary Catheter Management: Joy: Cath Placed During This Visit: yes Reason for Continuing Indwelling Catheter: Required Immobilization for Trauma or Surgery or Anesthesia Urinary Catheter Date of Insertion: 07/13/24 Urinary Catheter Time of Insertion: 16:47 Data 07/14/24 04:56 07/14/24 04:56 Micro: Microbiology 07/13/24 15:48 Blood Culture - Preliminary Blood SPECIMEN COLLECTED 07/13/24 15:44 Blood Culture - Preliminary Blood SPECIMEN COLLECTED A&P Assessment and plan (1) Hypertension: Qualifiers: Hypertension type: primary hypertension Qualified Code(s): I10 - Essential (primary) hypertension (2) Thyroid disease: (3) GERD (gastroesophageal reflux disease): (4) Anemia: Qualifiers: Anemia type: unspecified type Qualified Code(s): D64.9 - Anemia, unspecified (5) 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 Orthopedic surgery consulted from ER will await recommendations regarding activity ? Consult PT OT ? Pain management. Placed on morphine 4 mg every 4 hours as needed ? Will transition to oral pain medication in AM. ? Continue levothyroxine 25 daily ? Continue lisinopril, donepezil, celecoxib ? UA abnormal. Suggestive of UTI. Will place on ceftriaxone 1 g daily ? Check urine culture ? Continue gabapentin, hydrochlorothiazide ? After PT eval patient may be able to discharge home versus [facility]. Patient's is on dialysis and she will be alone for several hours a day. We will have to ensure she is safe to go home. Full code DVT prophylaxis: Lovenox 40 daily 07/14/2024 -Patient would like to go to a nursing facility at discharge. PT recommends home versus SNF. ? Continue oral hydrocodone for pain ? Continue physical therapy ? Continue all other home medications as previously ordered. ? Orthopedic surgery recommendations: Weightbearing as tolerated nonoperative management. Appreciate recommendations ? Attestations 2 Medical Necessity Statement*: Awaiting SNF placement. 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
[2024-07-14] MEDS: cefTRIAXone 1,000 mg SDV 1000 MG IVP (14:05)
--- NOTE | 2024-07-14 14:27 | P.HP_ITS ---
Documented by User: Jay Snyder 07/14/24 14:50 Providers/Chief Complaint 2 Admitting Physician: Christina Chun MD Primary Care Provider: Brian Norris MD Chief Complaint: left hip/back pain History of Present Illness Sole Luna is a 83 year old female with PMHx of hypothyroid and HTN here for fall. She reports falling on 06/18 after reaching for papers on the ground and falling over a chair. She denies episodes of lightheadedness, dizziness, SOB or chest pain before or at the time of fall. She noted pain in lower back and L hip at the time of fall but was able to bear weight on legs and walk following the fall. She received x-ray on 06/20 which she reports came back negative. She states one week ago pain in L hip worsened and she was not able to bear weight on leg, with the pain being 8/10 in severity. She reports pain being localized to L hip and lower back without spreading anywhere. She states that walking and bearing weight on leg makes pain worse but rest helps alleviate some pain. Before arriving to hospital, she reports pain being at 8/10 but this morning (07/14) she reports a 3/10 pain after receiving pain medication overnight. X-ray was performed yesterday (07/13) and revealed pelvic fracture. Patient denies fevers, headaches, chest pain, sob, lightheadedness, abdominal pain, n/v/d, and bruising. Review of Systems 2 General: Reports: 10 or more systems reviewed and unremarkable except in HPI and below Medications/Allergies Home Medications Medication Instructions Recorded Confirmed Last Taken Type lisinopril 20 1 tab PO QPM 08/04/19 07/13/24 07/12/24 History mg-hydrochlorothiazide 25 mg tablet (Zestoretic) donepezil 10 mg tablet 10 mg PO QPM 02/20/23 07/13/24 07/12/24 History gabapentin 300 mg capsule 300 mg PO QPM PRN nerve pain 02/20/23 07/13/24 07/12/24 History levothyroxine 25 mcg tablet 25 mcg PO QAM 02/20/23 07/13/24 07/13/24 History potassium chloride 20 mEq 20 meq PO TID #30 tabs 11/11/23 07/13/24 Unknown Rx tablet,extended release pentoxifylline 400 mg 400 mg PO QPM 04/20/24 07/13/24 07/12/24 History tablet,extended release acetaminophen 300 mg-codeine 60 mg 1 - 2 tab PO Q4H PRN pain 07/13/24 07/13/24 07/12/24 History tablet amlodipine 2.5 mg tablet 2.5 mg PO QPM 07/13/24 07/13/24 07/12/24 History celecoxib 200 mg capsule (Celebrex) 200 mg PO QPM 07/13/24 07/13/24 07/12/24 History pantoprazole 40 mg tablet,delayed 40 mg PO BID PRN Acid Reflux 07/13/24 07/13/24 Unknown History release Allergies Allergy/AdvReac Type Severity Reaction Status Date / Time erythromycin base Allergy Mild ALGY-Rash Verified 06/30/24 07:46 [From Erythrocin] Sulfa (Sulfonamide Allergy Mild ALGY-Rash Verified 06/30/24 07:46 Antibiotics) terbinafine Allergy Mild ADR-Insomni Verified 06/30/24 07:46 a tramadol Allergy Mild Unknown Verified 06/30/24 07:46 adhesive tape AdvReac Mild ADR-Nausea Verified 06/30/24 07:46 clindamycin AdvReac Mild ADR-Diarrhe Verified 06/30/24 07:46 a naproxen [From Naprosyn] AdvReac Mild ADR-Nausea Verified 06/30/24 07:46 PFSH Acute 2 PFSH: Medical History 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 MDS (myelodysplastic syndrome), low grade Macrocytic anemia Memory difficulty Hypertension Arthritis Thyroid disease History of osteomyelitis Surgical History History of bladder repair surgery History of hysterectomy Family History Other Cancer Dementia Denies family history of Diabetes CAD (coronary artery disease) Clotting disorder Hyperlipidemia Psychiatric illness Chronic kidney disease (CKD) Suicide Anesthesia complication Bleeding disorder Family history of premature coronary artery disease Lung disease Hypertension Stroke Social History Smoking and tobacco/nicotine status: never used tobacco/nicotine Second hand smoke exposure: No Alcohol intake: never Substance/Drug Use: never Lives independently: Yes Household members: spouse Marital status: Current occupational status: retired Vitals/I&O/Wt Last Vital Signs Temp 98.6 F 07/14/24 11:13 Pulse 83 07/14/24 11:13 Resp 16 07/14/24 11:13 BP 148/77 07/14/24 11:13 Pulse Ox 93 07/14/24 11:13 O2 Del Method Room Air 07/14/24 11:13 07/13/24 07/14/24 07/14/24 22:59 06:59 14:59 Intake Total 240 / 240 240 / 240 Output Total 400 / 400 Balance -160 / -160 240 / 240 Weight last 48 hrs Weight 68.855 kg Weight 65.771 kg Weight 65.771 kg Physical Exam 2 Const: COMMON NORMALS: no acute distress, patient oriented x3 and alert HENMT: COMMON NORMALS: normocephalic and atraumatic Eye: COMMON NORMALS: EOMs intact bilaterally and conjunctivae normal Chest: COMMONS NORMALS: normal inspection of the chest Resp: COMMON NORMALS: normal respiratory effort and clear to auscultation bilaterally Cardio: COMMON NORMALS: regular rate, regular rhythm, S1 normal heart sound present, S2 normal heart sound present, No murmurs present (Cardio) and Peripheral pulses 2+ throughout GI: COMMON NORMALS: Normal to inspection, nondistended, normoactive bowel sounds present, Soft to palpation and non-tender Extremity: COMMON NORMALS: normal to inspection and capillary refill normal Psych: COMMON NORMALS: Normal thought process present and cooperative Skin: COMMON NORMALS: no rashes or lesions noted Urinary Catheter Management: Joy: Cath Placed During This Visit: yes Reason for Continuing Indwelling Catheter: Required Immobilization for Trauma or Surgery or Anesthesia Urinary Catheter Date of Insertion: 07/13/24 Urinary Catheter Time of Insertion: 16:47 Data 07/14/24 04:56 07/14/24 04:56 Micro: Microbiology 07/13/24 15:48 Blood Culture - Preliminary Blood SPECIMEN COLLECTED 07/13/24 15:44 Blood Culture - Preliminary Blood SPECIMEN COLLECTED A&P Assessment and plan (1) Closed pelvic fracture: Qualifiers: Encounter type: initial encounter Fracture alignment: with stable disruption of pelvic ring Pelvic bone location: multiple parts Qualified Code(s): S32.810A - Multiple fractures of pelvis with stable disruption of pelvic ring, initial encounter for closed fracture Plan 1) Pelvic Fracture - Obtained Hip/Pelvix x-ray and Abdomen/Pelvis CT revealing pelvic fracture. - Consulted Ortho. - At this point, will treat nonoperatively. Patient can weight-bear as tolerated pain control with a walker. - Discuss to meet with PT. - Follow-up with PCP. 2) UTI - Abnormal UA. Suspect UTI. - Started on IV Ceftriaxone 1000mg q24H 3) HTN -BP 148/77 this morning (07/14) - continue at-home medication Coding Level of Care Code Acute Code for Chg Fwd Diagnoses Multiple closed fractures of pelvis with stable disruption of pelvic ring, initial encounter S32.810A Encounter type: initial encounter Fracture alignment: with stable disruption of pelvic ring Pelvic bone location: multiple parts Documented by User: Christina Chun MD 07/14/24 18:18 Providers/Chief Complaint 2 Chief Complaint: left hip/back pain Medications/Allergies Home Medications Medication Instructions Recorded Confirmed Last Taken Type lisinopril 20 1 tab PO QPM 08/04/19 07/13/24 07/12/24 History mg-hydrochlorothiazide 25 mg tablet (Zestoretic) donepezil 10 mg tablet 10 mg PO QPM 02/20/23 07/13/24 07/12/24 History gabapentin 300 mg capsule 300 mg PO QPM PRN nerve pain 02/20/23 07/13/24 07/12/24 History levothyroxine 25 mcg tablet 25 mcg PO QAM 02/20/23 07/13/24 07/13/24 History potassium chloride 20 mEq 20 meq PO TID #30 tabs 11/11/23 07/13/24 Unknown Rx tablet,extended release pentoxifylline 400 mg 400 mg PO QPM 04/20/24 07/13/24 07/12/24 History tablet,extended release acetaminophen 300 mg-codeine 60 mg 1 - 2 tab PO Q4H PRN pain 07/13/24 07/13/24 07/12/24 History tablet amlodipine 2.5 mg tablet 2.5 mg PO QPM 07/13/24 07/13/24 07/12/24 History celecoxib 200 mg capsule (Celebrex) 200 mg PO QPM 07/13/24 07/13/24 07/12/24 History pantoprazole 40 mg tablet,delayed 40 mg PO BID PRN Acid Reflux 07/13/24 07/13/24 Unknown History release Allergies Allergy/AdvReac Type Severity Reaction Status Date / Time erythromycin base Allergy Mild ALGY-Rash Verified 06/30/24 07:46 [From Erythrocin] Sulfa (Sulfonamide Allergy Mild ALGY-Rash Verified 06/30/24 07:46 Antibiotics) terbinafine Allergy Mild ADR-Insomni Verified 06/30/24 07:46 a tramadol Allergy Mild Unknown Verified 06/30/24 07:46 adhesive tape AdvReac Mild ADR-Nausea Verified 06/30/24 07:46 clindamycin AdvReac Mild ADR-Diarrhe Verified 06/30/24 07:46 a naproxen [From Naprosyn] AdvReac Mild ADR-Nausea Verified 06/30/24 07:46 PFSH Acute 2 PFSH: Medical History 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 MDS (myelodysplastic syndrome), low grade Macrocytic anemia Memory difficulty Hypertension Arthritis Thyroid disease History of osteomyelitis Surgical History History of bladder repair surgery History of hysterectomy Family History Other Cancer Dementia Denies family history of Diabetes CAD (coronary artery disease) Clotting disorder Hyperlipidemia Psychiatric illness Chronic kidney disease (CKD) Suicide Anesthesia complication Bleeding disorder Family history of premature coronary artery disease Lung disease Hypertension Stroke Social History Smoking and tobacco/nicotine status: never used tobacco/nicotine Second hand smoke exposure: No Alcohol intake: never Substance/Drug Use: never Lives independently: Yes Household members: spouse Marital status: Current occupational status: retired Physical Exam 2 Urinary Catheter Management: Joy: Cath Placed During This Visit: yes Data 07/14/24 04:56 07/14/24 04:56 A&P Assessment and plan (1) Closed pelvic fracture: Qualifiers: Encounter type: initial encounter Fracture alignment: with stable disruption of pelvic ring Pelvic bone location: multiple parts Qualified Code(s): S32.810A - Multiple fractures of pelvis with stable disruption of pelvic ring, initial encounter for closed fracture Attestations 2 Medical Necessity Statement*: obs admit for pelvic fracture Coding Level of Care Code Acute Code for Chg Fwd Diagnoses Multiple closed fractures of pelvis with stable disruption of pelvic ring, initial encounter S32.810A Encounter type: initial encounter Fracture alignment: with stable disruption of pelvic ring Pelvic bone location: multiple parts
[2024-07-14] MEDS: donepezil 5 MG Tablet 10 MG PO (17:08)
[2024-07-14] MEDS: hydroCHLOROthiazide 25 mg Tablet PO (17:08)
[2024-07-14] MEDS: CELEcoxib 200 mg Capsule PO (17:08)
[2024-07-14] MEDS: lisinopril 20 mg Tablet PO (17:08)
[2024-07-14] MEDS: amlodipine 5 mg Tablet 2.5 MG PO (17:08)
--- NOTE | 2024-07-14 20:41 | PC.NURSE ---
Pt was adminstered 400mg po tablet of Pentoxifylline ER from own bottle. Dual nurse verification to ensure correct dose and safety performed with VIVIEN Edouard.
[2024-07-15] VITALS: BP 164/83; PULSE 90; RESP 16; TEMP 36.4; O2SAT 96
[2024-07-15] MEDS: HYDROcodone-acetaminophen 5-325 mg Tablet 1 TAB PO ×2 (01:25→07:09)
[2024-07-15 04:00] VITALS: BP 171/94; PULSE 87; RESP 16; TEMP 36.9; O2SAT 98
[2024-07-15] MEDS: hyDRALAzine 25 mg Tablet PO (05:05)
[2024-07-15] MEDS: levothyroxine 25 mcg Tablet PO (05:05)
[2024-07-15 07:20] VITALS: BP 135/81; PULSE 104; RESP 15; TEMP 36.8; O2SAT 96
[2024-07-15 07:50] VITALS: PULSE 91; RESP 16; O2SAT 95
[2024-07-15] MEDS: potassium chloride ER 20 mEq Tablet PO ×2 (08:09→14:58)
--- NOTE | 2024-07-15 09:23 | PC.CHAP ---
Pastoral Care Encounter/Spiritual Assessment Type of Contact [] Declined safety deposit clerk visit [] Patient/Family/Request visit [] Outpatient visit [] Follow-up visit [] Physician referral [] Code/Alert [] Routine visit [] Staff referral [] Actively dying [] Patient sleeping [] Family support [] [] Out of room [] Palliative care [] [x] Receiving care in room [] Pre-surgical visit [] Trauma [] Long length of stay [] ICU visit [] Other: Relational/Emotional Strength [] Patient feels connected with others/family/visitors/staff [] Distress [] Loneliness/isolation [] Abandonment Spirituality of Patient [] Person of [place] [] Attends Congregation of their [place] [] Believes in Prayer [] Reads Bible or Religion materials [] There are Spiritual issues to be addressed Dealer Sales Rep Interventions [] Prayer [] Active listening [] Non-anxious presence [] Spiritual/emotional support [] Crisis/trauma care [] Spiritual counseling [] Bereavement support [] Provided bereavement packet [] Provided Bible/devotional materials [] Provided toy/stuffed animal, coloring book to patient or family member [] Provided Communion [] Anointing/[place] [] Salvation [] Completed spiritual assessment [] Other: Impact on Illness or Injury [] Angry [] Fearful [] Anxious [] Often cries [] Exhaustion [] Unable to work [] Unable to attend mormonism [] Unable to walk/stand [] Unable to read [] Unable to drive [] Unable to eat/drink [] Unable to sleep [] Unable to be with family [] Patient intubated [] Other: Summary Time spent with patient
[2024-07-15 11:02] VITALS: BP 131/76; PULSE 88; RESP 16; TEMP 36.8; O2SAT 98
[2024-07-15] MEDS: HYDROcodone-acetaminophen 7.5-325 mg Tablet 1 TAB PO (11:08)
--- NOTE | 2024-07-15 11:11 | P.PN_ITS ---
Subjective 2 Subjective: Patient was seen this morning. No acute overnight events. She states she slept well but reports pain increasing from a 3/10 in severity to an intermittent 8/10 pain again this morning. Denies SOB, chest pain, N/V/D. Vitals/I&O/Wt Last Vital Signs Temp 98.2 F 07/15/24 07:20 Pulse 91 07/15/24 07:50 Resp 16 07/15/24 07:50 BP 135/81 07/15/24 07:20 Pulse Ox 95 07/15/24 07:50 O2 Del Method Room Air 07/15/24 07:50 07/14/24 07/15/24 07/15/24 22:59 06:59 14:59 Intake Total 720 / 960 0 / 960 360 / 360 Output Total 550 / 550 150 / 700 Balance 170 / 410 -150 / 260 360 / 360 Weight last 48 hrs Weight 68.901 kg Weight 68.855 kg Weight 65.771 kg Weight 65.771 kg Physical Exam 2 Const: COMMON NORMALS: no acute distress, patient oriented x3 and alert HENMT: COMMON NORMALS: normocephalic and atraumatic HEAD & SCALP: n ormocephalic and atraumatic Eye: COMMON NORMALS: EOMs intact bilaterally and conjunctivae normal C ONJUNCTIVA: Yes conjunctivae normal Resp: COMMON NORMALS: normal respiratory effort and clear to auscultation bilaterally AUSCULTATION: clear to auscultation bilaterally Cardio: COMMON NORMALS: regular rate, regular rhythm, S1 normal heart sound present, S2 normal heart sound present, No murmurs present (Cardio) and Peripheral pulses 2+ throughout RATE: regular rate RHYTHM: regular rhythm HEART SOUNDS: S1 normal heart sound present and S2 normal heart sound present PERIPHERAL PULSES: Peripheral pulses 2+ throughout GI: COMMON NORMALS: Normal to inspection, nondistended, normoactive bowel sounds present, Soft to palpation and non-tender PALPATION: Yes Soft to palpation Extremity: COMMON NORMALS: normal to inspection and capillary refill normal Neuro: COMMON NORMALS: patient oriented x3 and no focal motor deficits S ENSORIUM/ORIENTATION: Yes alert Urinary Catheter Management: Joy: Cath Placed During This Visit: yes Reason for Continuing Indwelling Catheter: Other Urinary Catheter Date of Insertion: 07/13/24 Urinary Catheter Time of Insertion: 16:47 Data 07/14/24 04:56 07/14/24 04:56 Micro: Microbiology 07/13/24 13:04 Urine Culture - Preliminary Urine Catheterized Gram Negative Rods 07/13/24 15:48 Blood Culture - Preliminary Blood NEGATIVE TO DATE 07/13/24 15:44 Blood Culture - Preliminary Blood NEGATIVE TO DATE A&P Assessment and plan Plan 1) Pelvic Fracture - Obtained Hip/Pelvix x-ray and Abdomen/Pelvis CT (07/13) revealing pelvic fracture. - Consulted Ortho. - At this point, will treat nonoperatively. Patient can weight-bear as tolerated pain control with a walker. - Continue medication for pain. - Discuss to meet with PT. - Follow-up with PCP. 2) UTI - Abnormal UA. Suspect UTI. - Started on IV Ceftriaxone 1000mg q24H - Urine culture preliminary shows Gram Negative Rods; colony count >100,000 CFU/ml 3) HTN -BP 135/81 this morning (07/15) - continue at-home medication Coding Level of Care Code Acute Code for Chg [place]
--- NOTE | 2024-07-15 12:59 | P.DS_ITS ---
Discharge Providers Date of Admission: 07/13/24 16:16 Date of Discharge: July 15, 2024 Attending Provider at Admission: Christina Chun MD Attending Provider at Discharge: Christina Chun MD Primary Care Provider: Brian Norris MD Diagnoses at Discharge Discharge Diagnosis (1) Closed pelvic fracture: Status: Acute Qualifiers: Encounter type: initial encounter Fracture alignment: with stable disruption of pelvic ring Pelvic bone location: multiple parts Qualified Code(s): S32.810A - Multiple fractures of pelvis with stable disruption of pelvic ring, initial encounter for closed fracture Reason for Visit Reason for Visit: left hip/back pain Hospital Course Hospital Course Sole Luna is a 83 year old female Past medical history of mild dysplastic syndrome, mild dementia, arthritis, hypothyroidism, hypertension, history of osteomyelitis who presented to the hospital after mechanical fall. She states that she was standing in her dining room and reached out for the chair while picking up papers off the floor and chair fell down along with her falling to the ground as well. It was purely a mechanical fall. Denies any lightheadedness or prodromal symptoms prior to the fall. Denies dizziness. Denies any chest pain shortness of breath nausea vomiting diarrhea constipation abdominal pain. She is accompanied by her at this time. In ER abdomen CT pelvis was obtained which showed a 1. Bilateral vertically oriented sacral ala fractures. 2. Comminuted LEFT superior and inferior pubic rami fractures at the pubic symphysis. Associated soft tissue edema. 3. Midline S3 sacral segment fracture with cortical buckling. 4. Osteopenia. 5. Chronic appearing compression fracture L2 vertebral body with anterior wedging and mild retropulsion. Mild central canal stenosis. 6. Prominent disc osteophyte protrusions L2-L4 with mild to moderate central canal stenosis worse at L2-3. 7. Small esophageal hiatal hernia. Patient was seen by orthopedic surgery she is to be weightbearing as tolerated and have nonoperative management at this time. Physical therapy recommended home health versus SNF. Patient would like to go for SNF at this point. She will be discharged to nursing facility today for rehab. Physical Exam Const: COMMON NORMALS: no acute distress, patient oriented x3 and alert HENMT: COMMON NORMALS: normocephalic and atraumatic HEAD & SCALP: normocephalic and atraumatic Eye: COMMON NORMALS: EOMs intact bilaterally and conjunctivae normal CONJUNCTIVA: Yes conjunctivae normal Chest: COMMONS NORMALS: normal inspection of the chest Resp: COMMON NORMALS: normal respiratory effort and clear to auscultation bilaterally AUSCULTATION: clear to auscultation bilaterally Cardio: COMMON NORMALS: regular rate, regular rhythm, S1 normal heart sound present, S2 normal heart sound present, No murmurs present (Cardio) and Peripheral pulses 2+ throughout RATE: regular rate RHYTHM: regular rhythm HEART SOUNDS: S1 normal heart sound present and S2 normal heart sound present PERIPHERAL PULSES: Peripheral pulses 2+ throughout GI: COMMON NORMALS: Normal to inspection, nondistended, normoactive bowel sounds present, Soft to palpation and non-tender PALPATION: Yes Soft to palpation Extremity: COMMON NORMALS: normal to inspection and capillary refill normal Neuro: COMMON NORMALS: patient oriented x3 SENSORIUM/ORIENTATION: Yes alert Psych: COMMON NORMALS: Normal thought process present and cooperative THOUGHT PROCESS: Normal thought process present Skin: COMMON NORMALS: no rashes or lesions noted GENERAL SKIN EXAM: no rashes or lesions noted Urinary Catheter Management: Joy: Cath Placed During This Visit: yes Reason for Continuing Indwelling Catheter: Other Urinary Catheter Date of Insertion: 07/13/24 Urinary Catheter Time of Insertion: 16:47 Discharge Data Studies Completed and Pending Completed Studies During Hospitalization Category Date Time Status CT abdomen renal stone [CT kidney stone [id number]] Stat Cat Scan 07/13/24 12:08 Completed XR hip LT 2-3V wo/w pel* [id number] Stat Exams 07/13/24 12:08 Completed Pending at discharge Category Date Time Status Blood Culture Stat Lab 07/13/24 15:48 Results COVID [SARS Covid-2 Antigen] Routine Lab 07/15/24 12:45 Received Urine Culture Stat Lab 07/13/24 13:04 Results Radiology Impressions Abdomen/Pelvis CT 07/13/24 12:08 IMPRESSION: 1. Bilateral vertically oriented sacral ala fractures. 2. Comminuted LEFT superior and inferior pubic rami fractures at the pubic symphysis. Associated soft tissue edema. 3. Midline S3 sacral segment fracture with cortical buckling. 4. Osteopenia. 5. Chronic appearing compression fracture L2 vertebral body with anterior wedging and mild retropulsion. Mild central canal stenosis. 6. Prominent disc osteophyte protrusions L2-L4 with mild to moderate central canal stenosis worse at L2-3. 7. Small esophageal hiatal hernia. Hip/Pelvis X-Ray 07/13/24 12:08 IMPRESSION: Potential acute hip fracture as above. Laboratory Results WBC 7.34 10^3/uL (3.29-11.43) 07/14/24 04:56 RBC 3.42 10^6/uL (3.85-5.65) L 07/14/24 04:56 Hgb 10.20 g/dL (11.27-16.99) L 07/14/24 04:56 Hct 32.4 % (36-47) L 07/14/24 04:56 MCV 94.7 fl (85-98) 07/14/24 04:56 MCH 29.8 pg (27-33) 07/14/24 04:56 MCHC 31.5 g/dL (30-55) 07/14/24 04:56 RDW 22.4 % (12.1-15.1) H 07/14/24 04:56 Plt Count 404 10^3/cmm (157-399) H 07/14/24 04:56 MPV 11.0 fL (7.4-10.4) H 07/14/24 04:56 Neut % (Auto) 64.3 % 07/14/24 04:56 Lymph % (Auto) 22.9 % 07/14/24 04:56 [place] % (Auto) 9.1 % 07/14/24 04:56 Eos % (Auto) 1.2 % 07/14/24 04:56 Baso % (Auto) 1.4 % 07/14/24 04:56 Neut # (Auto) 4.72 10^3/uL (1.8-7.7) 07/14/24 04:56 Lymph # (Auto) 1.7 10^3/uL (0.8-4.8) 07/14/24 04:56 [place] # (Auto) 0.7 10^3/uL (0.2-0.9) 07/14/24 04:56 Eos # (Auto) 0.1 10^3/uL (0.0-0.8) 07/14/24 04:56 Baso # (Auto) 0.1 10^3/uL (0.0-0.1) 07/14/24 04:56 Nucleated RBC % (auto) 0.3 % 07/14/24 04:56 Nucleated RBCs # 0.0 /100WBC 07/14/24 04:56 Sodium 141 mmol/L (136-145) 07/14/24 04:56 Potassium 3.8 mmol/L (3.5-5.1) 07/14/24 04:56 Chloride 106 mmol/L (98-107) 07/14/24 04:56 Carbon Dioxide 26 mmol/L (22-29) 07/14/24 04:56 Anion Gap 12.8 (5-19) 07/14/24 04:56 BUN 24 mg/dL (8-23) H 07/14/24 04:56 Creatinine 0.9 mg/dL (0.5-0.9) 07/14/24 04:56 GFR Calculation Not Reportable 07/14/24 04:56 Glucose 121 mg/dL (65-115) H 07/14/24 04:56 Calculated Osmolality 297 mOsm/kg (285-295) H 07/14/24 04:56 Calcium 8.8 mg/dL (8.5-10.5) 07/14/24 04:56 Magnesium 1.9 mg/dL (1.7-2.3) 07/14/24 04:56 Total Bilirubin 0.5 mg/dL (0.15-1.2) 07/14/24 04:56 AST 16 U/L (0-32) 07/14/24 04:56 ALT 12 U/L (0-33) 07/14/24 04:56 Alkaline Phosphatase 165 U/L (35-105) H 07/14/24 04:56 Total Protein 5.9 g/dL (6.6-8.7) L 07/14/24 04:56 Albumin 3.2 g/dL (3.5-5.2) L 07/14/24 04:56 Globulin 2.7 g/dL (1.3-4.6) 07/14/24 04:56 Urine Color Yellow (Yellow) 07/13/24 13:04 Urine Appearance Turbid (CLEAR) A 07/13/24 13:04 Urine pH 8.0 (5-7) A 07/13/24 13:04 Ur Specific [place] 1.026 (1.005-1.030) 07/13/24 13:04 Urine Protein 2+ (Negative) A 07/13/24 13:04 Urine Glucose (UA) Negative (Normal) 07/13/24 13:04 Urine Ketones Negative (Negative) 07/13/24 13:04 Urine Blood 3+ (Negative) A 07/13/24 13:04 Urine Nitrate Positive (Negative) A 07/13/24 13:04 Urine Bilirubin Negative (Negative) 07/13/24 13:04 Urine Urobilinogen 1.0 mg/dL (Negative) 07/13/24 13:04 Ur Leukocyte Esterase 1+ (Negative) A 07/13/24 13:04 Urine RBC 0-4 /hpf (0-2) H 07/13/24 13:04 Urine WBC 10-15 /hpf (0-5) H 07/13/24 13:04 Ur Squamous Epith Cells 0-4 /hpf (0-5) H 07/13/24 13:04 Triple Phos Crystals 15-25 /hpf H 07/13/24 13:04 Amorphous Sediment Not Reportable 07/13/24 13:04 Urine Bacteria 4+ /hpf (NONE) H 07/13/24 13:04 Hyaline Casts 0-4 /lpf H 07/13/24 13:04 Urine Mucus Trace /hpf 07/13/24 13:04 Vitals Last Vital Signs Temp 98.3 F 07/15/24 11:02 Pulse 88 07/15/24 11:02 Resp 16 07/15/24 11:02 BP 131/76 07/15/24 11:02 Pulse Ox 98 07/15/24 11:02 O2 Del Method Room Air 07/15/24 11:02 Discharge Plan Discharge Patient Disposition: Xfer SNF Condition: Stable Prescriptions: New hydrocodone-acetaminophen 7.5-325 mg Tablet 1 tab PO Q6H PRN (Reason: Moderate Pain) Qty: 20 0RF cefdinir 300 mg capsule 300 mg PO BID 5 Days Qty: 10 0RF Continued lisinopril-hydrochlorothiazide [Zestoretic] 20-25 mg tablet 1 tab PO QPM donepezil 10 mg tablet 10 mg PO QPM levothyroxine 25 mcg tablet 25 mcg PO QAM gabapentin 300 mg capsule 300 mg PO QPM PRN (Reason: nerve pain) pentoxifylline 400 mg tablet extended release 400 mg PO QPM potassium chloride 20 mEq tablet extended release 20 meq PO TID Qty: 30 0RF Rx Instructions: lab check on Saturday. celecoxib [Celebrex] 200 mg capsule 200 mg PO QPM amlodipine 2.5 mg tablet 2.5 mg PO QPM pantoprazole 40 mg tablet,delayed release (DR/EC) 40 mg PO BID PRN (Reason: Acid Reflux) Discontinued acetaminophen-codeine 300-60 mg tablet 1 - 2 tab PO Q4H PRN (Reason: pain) Discharge Orders: Discharge Order (Routine); Ordered 07/15/24 Ordered By: Christina Chun Referrals: [facility] [Outside] Brian Norris MD [Primary Care Provider] - Discharge Diet: Cardiac Discharge Activity: Resume usual activity Patient Instructions: Hydrocodone/Acetaminophen (By mouth), Cefdinir (By mouth), Opioid Safety Discharge Attestations Time Spent in Discharge Care*: less than 30 min Quality Metrics Clinical Quality Measures [ No reported AMI, CVA or VTE this stay] Coding Level of Care Code Acute Code for Chg Fwd Diagnoses Multiple closed fractures of pelvis with stable disruption of pelvic ring, initial encounter S32.810A Encounter type: initial encounter Fracture alignment: with stable disruption of pelvic ring Pelvic bone location: multiple parts
[2024-07-15 13:13] LABS: SARS Covid-2 Antigen negative (Negative)
[2024-07-15 15:12] VITALS: BP 131/76; PULSE 88; RESP 16; TEMP 36.8; O2SAT 98
== END 2024-07-15 15:14 | disposition skilled nursing facility (03) ==
LOC: ER 14:26 → ER IP 16:17 → MEDSURG 22:23
PROVIDERS: Admitting Provider Internal Medicine; Emergency Provider Emergency Medicine; PCP Family Medicine; Visit Provider Internal Medicine
DX: S32.810A Multiple fractures of pelvis with stable disruption of pelvic ring, initial encounter for closed fracture (principal); W19.XXXA Unspecified fall, initial encounter; F03.90 Unspecified dementia, unspecified severity, without behavioral disturbance, psychotic disturbance, mood disturbance, and anxiety; M19.90 Unspecified osteoarthritis, unspecified site; E03.9 Hypothyroidism, unspecified; I10 Essential (primary) hypertension; M86.9 Osteomyelitis, unspecified; Z91.81 History of falling; N39.0 Urinary tract infection, site not specified; D46.9 Myelodysplastic syndrome, unspecified; K21.9 Gastro-esophageal reflux disease without esophagitis; D46.Z Other myelodysplastic syndromes; R41.3 Other amnesia
CPT/HCPCS: 36415; 51701; 51702; 73502; 74176; 80048; 80053; 81001; 83735; 85025; 87040; 87077; 87086; 87186; 87426; 96374; 96375; 96376; 97110; 97161; 97530; 99285; G0378; J0696; J2270; J2405

== ENCOUNTER → 2025-04-07 12:57 | Outpatient (BNVA) | payer MEDICARE, SELFPAY | PROVIDERS: PCP Family Medicine; Visit Provider Podiatrist Foot & Ankle Surgery | DX: I73.9 Peripheral vascular disease, unspecified (principal); L60.2 Onychogryphosis | CPT/HCPCS: 11721 ==

== ENCOUNTER 2025-05-10 13:58 | Oncology outpatient (recurring) (ONCR) | payer MEDICARE, SELFPAY ==
[2025-05-10 14:48] LABS: Hematocrit 26.4 % (36-47); Hemoglobin 8.40 g/dL (11.27-16.99); Mean Corpuscular HGB Conc 31.8 g/dL (30-55); Mean Corpuscular Hemoglobin 30.9 pg (27-33); Mean Corpuscular Volume 97.1 fl (85-98); Nucleated Red Blood Cells % 0.5 %; Platelet Count 335 10^3/cmm (157-399); Red Blood Count 2.72 10^6/uL (3.85-5.65); White Blood Count 6.39 10^3/uL (3.29-11.43)
== END 2025-05-30 23:59 | disposition home or self-care (01) ==
PROVIDERS: PCP Family Medicine; Visit Provider Internal Medicine Medical Oncology
DX: D46.Z Other myelodysplastic syndromes (principal); Z15.89 Genetic susceptibility to other disease; Z15.09 Genetic susceptibility to other malignant neoplasm; Z79.899 Other long term (current) drug therapy
CPT/HCPCS: 36415; 85025; 99214

== ENCOUNTER → 2025-05-12 09:59 | Outpatient (BNVA) | payer MEDICARE, SELFPAY | PROVIDERS: PCP Family Medicine; Visit Provider Physician Assistant | DX: Z47.89 Encounter for other orthopedic aftercare (principal); Z96.659 Presence of unspecified artificial knee joint | CPT/HCPCS: 73560; 73565; 99213 ==

== ENCOUNTER 2025-06-02 13:19 | Oncology outpatient (recurring) (ONCR) | payer MEDICARE, SELFPAY ==
[2025-06-02] MEDS: luspatercept-aamt 75 mg 64.5 MG SUBCUT (14:22)
== END 2025-06-02 23:59 | disposition home or self-care (01) ==
PROVIDERS: PCP Family Medicine; Visit Provider Internal Medicine Medical Oncology
DX: D46.Z Other myelodysplastic syndromes (principal); Z79.899 Other long term (current) drug therapy
CPT/HCPCS: 96372; J0896

== ENCOUNTER 2025-06-14 10:27 | Emergency (ER) | payer MEDICARE, SELFPAY ==
[2025-06-14 10:47] VITALS: BP 126/84; PULSE 105; RESP 15; TEMP 36.8; O2SAT 92; BMI 23.3
--- NOTE | 2025-06-14 10:51 | W.ED.BACK ---
HPI - Back Pain/Injury General: Chief Complaint: Back Pain/Injury Stated Complaint: back pain Time Seen by Provider: 06/14/25 10:50 Source: patient and family Mode of arrival: wheelchair Limitations: no limitations History of Present Illness: Patient is a very nice 84-year-old female presents to ED today along with her significant other for complaints of lower back pain. Significant other states she occasionally has issues with her lower back but states over the past 3 days her pain has been severe. No recent injury or trauma. Patient states her pain is across her lower back and does not move into her buttocks or lower extremities. She is not complaining of lower extremity numbness or tingling. No saddle anesthesia or issues with urinary retention or bowel incontinence. Patient states she has been taking a hydrocodone for her pain at night which does allow her to sleep. She has not been taking this medication during the day. Denies urinary symptoms. No flank pain. She currently rates at a 4/10 but would rate much higher if she were to attempt to get up and walk. MD elicited complaint: back pain Pertinent past history: prior back pain Onset (ago): day(s) Timing: constant Severity: severe Similar Symptoms Previously: Yes Location: lumbar spine Radiation: none Exacerbating factors: movement Relieving factors: immobilization and other (hydrocodone) Associated symptoms: Reports no associated symptoms and difficulty walking (secondary to pain in her back); Deny abdominal pain, chills, dysuria, fatigue, fever(s) or hematuria Work related injury: No Related Data Home Medications ?Medication ?Instructions ?Recorded ?Confirmed lisinopril 20 1 tab PO QPM 08/04/19 06/14/25 mg-hydrochlorothiazide 25 mg tablet (Zestoretic) donepezil 10 mg tablet 10 mg PO QPM 02/20/23 06/14/25 gabapentin 300 mg capsule 300 mg PO QPM PRN nerve pain 02/20/23 06/14/25 levothyroxine 25 mcg tablet 25 mcg PO QAM 02/20/23 06/14/25 pentoxifylline 400 mg 400 mg PO QPM 04/20/24 06/14/25 tablet,extended release amlodipine 2.5 mg tablet 2.5 mg PO QPM 07/13/24 06/14/25 celecoxib 200 mg capsule (Celebrex) 200 mg PO QPM 07/13/24 06/14/25 pantoprazole 40 mg tablet,delayed 40 mg PO BID PRN Acid Reflux 07/13/24 06/14/25 release acetaminophen 300 mg-codeine 60 mg 0.5 - 1 tab PO Q6H PRN Pain 06/14/25 06/14/25 tablet calcium carbonate (Calcium 600) 600 mg PO TID 06/14/25 06/14/25 loperamide 2 mg tablet 2 mg PO BID PRN Constipation 06/14/25 06/14/25 Previous Rx's ?Medication ?Instructions ?Recorded potassium chloride 20 mEq 20 meq PO TID #30 tabs 11/11/23 tablet,extended release hydrocodone 5 mg-acetaminophen 325 1 tab PO Q6H PRN pain #20 tabs 06/14/25 mg tablet Allergies Allergy/AdvReac Type Severity Reaction Status Date / Time erythromycin base (From Allergy Mild ALGY-Rash Verified 05/12/25 10:10 Erythrocin) Sulfa (Sulfonamide Allergy Mild ALGY-Rash Verified 05/12/25 10:10 Antibiotics) terbinafine Allergy Mild ADR-Insomni Verified 05/12/25 10:10 a tramadol Allergy Mild Unknown Verified 05/12/25 10:10 adhesive tape AdvReac Mild ADR-Nausea Verified 05/12/25 10:10 clindamycin AdvReac Mild ADR-Diarrhe Verified 05/12/25 10:10 a naproxen (From Naprosyn) AdvReac Mild ADR-Nausea Verified 05/12/25 10:10 Review of Systems Const: Denies: fever(s), chills, body aches, fatigue or malaise Card: Denies: chest pain Resp: Denies: dyspnea GI: Denies: abdominal pain : Denies: flank pain, dysuria or hematuria Musc: Reports: back pain; Denies: neck pain, extremity pain, extremity swelling, joint pain, joint swelling or joint redness Skin/Breast: Denies: rash Neuro: Reports: difficulty walking (secondary to pain in her back); Denies: numbness in extremities, weakness in extremities or sensory changes PFSH ED PFSH: Medical History 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 MDS (myelodysplastic syndrome), low grade Macrocytic anemia Memory difficulty Hypertension Arthritis Thyroid disease History of osteomyelitis Surgical History History of bladder repair surgery History of hysterectomy Family History Other Cancer Dementia Denies family history of Diabetes CAD (coronary artery disease) Clotting disorder Hyperlipidemia Psychiatric illness Chronic kidney disease (CKD) Suicide Anesthesia complication Bleeding disorder Family history of premature coronary artery disease Lung disease Hypertension Stroke Social History Smoking and tobacco/nicotine status: never used tobacco/nicotine Second hand smoke exposure: No Alcohol intake: never Substance/Drug Use: never Lives independently: Yes Household members: spouse Marital status: Current occupational status: retired Physical Exam Const: COMMON NORMALS: no acute distress, average body habitus, patient oriented x3, no limitations, healthy appearing, alert and well nourished GENERAL APPEARANCE: cooperative ORIENTATION/CONSCIOUSNESS: Yes awake, Yes oriented to person, Yes oriented to place and Yes oriented to time Neck/C-Spine: COMMON NORMALS: full ROM and no meningeal signs Resp: COMMON NORMALS: normal respiratory effort and clear to auscultation bilaterally AUSCULTATION: clear to auscultation bilaterally Cardio: COMMON NORMALS: regular rate and regular rhythm RATE: regular rate RHYTHM: regular rhythm Back/Pelvis: THORACIC SPINE/UPPER BACK: No thoracic spinal tenderness and No paraspinal muscle tenderness LUMBAR SPINE/LOWER BACK: Yes pain with ROM, Yes lumbar spinal tenderness (low lumbar), No paraspinal muscle spasm and No mass present PELVIS: Yes buttocks normal and No sciatic notch tenderness SACROILIAC JOINTS: Yes SI joints normal SACRUM: no tenderness COCCYX: no tenderness Extremity: COMMON NORMALS: normal to inspection, capillary refill normal, no clubbing, cyanosis or edema, no calf tenderness and no pedal edema GENERAL: Yes normal exam except as noted Neuro: COMMON NORMALS: patient oriented x3, moves all extremities, no focal motor deficits and no sensory deficits noted SENSORIUM/ORIENTATION: Yes alert, Yes oriented to person, Yes oriented to place and Yes oriented to time MENINGEAL SIGNS: Yes no meningeal signs GAIT: Yes Unable to assess gait Skin: COMMON NORMALS: no rashes or lesions noted GENERAL SKIN EXAM: no rashes or lesions noted Course Vital Signs: Vital signs: Vital Signs Temperature 98.2 F 06/14/25 10:47 Pulse Rate 105 H 06/14/25 10:47 Respiratory Rate 15 06/14/25 10:47 Blood Pressure 126/84 06/14/25 10:47 Pulse Oximetry 92 06/14/25 10:47 Oxygen Delivery Me thod Room Air 06/14/25 10:47 MDM - Back Pain/Injury Medical Decision Making Patient here for acute on chronic back pain over the past 3 days. She is not having any neurologic or radicular symptoms. No direct injury or trauma. Lumbar XR showing a chronic severe compression fracture at L2. Possible new compression fracture at L1. She was given pain medications here and was able to ambulate here in the emergency department. Will place her on pain medications at home and have her follow-up with Dr. Aquino for evaluation for possible kyphoplasty. She can also follow-up with primary care in the meantime. Return ED precautions discussed. Differential Diagnosis Likely lumbar radiculopathy and strain of lumbar region Medical Records I reviewed the patient's medical records. Labs Radiology Impressions Lumbar Spine X-Ray 06/14/25 11:00 IMPRESSION: L2 moderate to severe compression deformity is not definitely changed from prior CT. L1 compression deformity appears possibly new from prior, consider correlation with CT or MRI as clinically indicated. All radiology interpretation(s) finalized by discharge Discharge Plan Discharge Patient Disposition: Home Clinical Impression: Closed compression fracture of lumbar vertebra Qualifiers: Encounter type: initial encounter Lumbar vertebra fracture level: L1 Qualified Code(s): S32.010A - Wedge compression fracture of first lumbar vertebra, initial encounter for closed fracture Condition: Stable Prescriptions: New hydrocodone-acetaminophen 5-325 mg tablet 1 tab PO Q6H PRN (Reason: pain) Qty: 20 0RF No Action lisinopril-hydrochlorothiazide [Zestoretic] 20-25 mg tablet 1 tab PO QPM donepezil 10 mg tablet 10 mg PO QPM levothyroxine 25 mcg tablet 25 mcg PO QAM gabapentin 300 mg capsule 300 mg PO QPM PRN (Reason: nerve pain) pentoxifylline 400 mg tablet extended release 400 mg PO QPM potassium chloride 20 mEq tablet extended release 20 meq PO TID Qty: 30 0RF loperamide 2 mg Tablet 2 mg PO BID PRN (Reason: Constipation) calcium carbonate [Calcium 600] 600 mg calcium (1,500 mg) Tablet 600 mg PO TID acetaminophen-codeine 300-60 mg tablet 0.5 - 1 tab PO Q6H PRN (Reason: Pain) celecoxib [Celebrex] 200 mg capsule 200 mg PO QPM amlodipine 2.5 mg tablet 2.5 mg PO QPM pantoprazole 40 mg tablet,delayed release (DR/EC) 40 mg PO BID PRN (Reason: Acid Reflux) Discharge Orders: Discharge ED (Routine); Ordered 06/14/25 Ordered By: Sariah Lebron Referrals: Brian Norris MD [Primary Care Provider, [facility]] Patient Instructions: Fractures - Compression, Opioid Safety, Pain Management, Patient Portal & Lucia Instructions Activity Restrictions/Additional Instructions: As we discussed, I will refer her to Dr. Aquino, our [facility] spinal (back) specialist for further evaluation and options regarding her back pain. You may use the pain medication prescribed to you as needed for severe discomfort. She may continue to follow-up with her primary care provider in the meantime. Print Language: [place]ian Coding Level of Care Code ED Office Coordinator for Billy Madrigal
--- NOTE | 2025-06-14 11:00 | XRR_ITS ---
PROCEDURE INFORMATION: Exam: XR Lumbosacral Spine Exam date and time: 06/14/2025 11:10 AM Age: 84 years old Clinical indication: Low back pain; Prior surgery; Surgery date: 6+ months; Surgery type: Hyst TECHNIQUE: Imaging protocol: Radiologic exam of the lumbosacral spine. Views: 2 or 3 views. COMPARISON: CR XR hip LT 2-3V wo/w pel* [id number] 07/13/2024 12:26 PM FINDINGS: Bones/joints: There are severe degenerative changes throughout the visible areas of the spine. L2 moderate to severe compression deformity is not definitely changed from prior CT. L1 compression deformity appears possibly new from prior, consider correlation with CT or MRI as clinically indicated. Soft tissues: Unremarkable. Gastrointestinal tract: Bowel-gas pattern in the [id number] is nonobstructive. XR/XR lumbar spine 2-3V* [id number] IMPRESSION: L2 moderate to severe compression deformity is not definitely changed from prior CT. L1 compression deformity appears possibly new from prior, consider correlation with CT or MRI as clinically indicated.
[2025-06-14] MEDS: morphine 4 mg/mL SDV 1 mL IM (11:20)
[2025-06-14] MEDS: ondansetron 2 mg/ML SDV 2 mL 4 MG IM (11:21)
--- OUTSIDE RECORDS SUMMARY | 2025-06-14 11:39 | XMS_ITS | Data Portability ---
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 She will keep an eye on it. Not available 12/31/2024 15:42:20 04/07/2025 04/07/2025 - 84 year old female with history of essential hypertension and osteoarthritis presenting with routine follow-up and discussion on vaccinations. - Hypertension is stable. - Persistent back pain from osteoarthritis. - Outdoor influenza vaccination completed. - RSV and COVID vaccinations considered as next potential preventative measures. Essential Hypertension: - Continue care with lisinopril and hydrochlorothiazi de. - Prescription refill provided. Osteoarthritis: - Recommend physical therapy consideration. - Continued use of cane advised. Influenza Vaccination: - Completed during current visit. Fall With Subsequent Back Pain: - Continued assessment for pain relief options. Potential Rsv Vaccination: - Future consideration for vaccine administration. Potential Covid-19 Vaccination: - Provide guidance and discuss future option. [email or web address] Not available 04/07/2025 12:26:47 04/26/2025 04/26/2025 - 84-year-old female with history of preventive procedure and memory impairment presenting for Medicare Annual Wellness Visit. - Stable condition focused on maintenance and prevention. - Memory impairment noted with no significant daily disruption reported. [email or web address] Not available 04/26/2025 16:53:24 Plan of Treatment Reminders Order Date Submit Date Provider Last Modified By Organization Details Last Modified Time Details Appointments OFFICE VISIT 20 2025 10:00A M Abbe Maguire MD Not available Not available Not available Lab thyrotrop in, QN, serum or plasma 2024 [facility], [address], [place], [address], 04/28/2025 10:51:45 CBC 2024 [facility], [address], [address], [place], [address], 04/28/2025 10:08:45 CMP, serum or plasma 2024 [facility], [address], [place], [address], 04/28/2025 10:44:02 lipid panel, blood 2024 [facility], [address], [place], [address], 04/28/2025 10:44:05 Referral None recorded. Procedures None recorded. Surgeries None recorded. Imaging None recorded. Medication Orders donepezil 10 mg tablet 2024 [facility], [address], [place], [address], 04/26/2025 16:47:55 lisinopri l 20 mg-hydroc hlorothia zide 25 mg tablet [email or web address] [place] [address] Pharmacy 15, [address], [place], [address], 04/07/2025 22:20:01 Patient TargetsNo targets recorded. Patient Instructions Encounter Date Encounter Id Patient Instructions Last Modified By Organization Details Last Modified Time 04/07/2025 [id number] - Continue griselda herron your blood pressure medications as prescribed. - Use your cane when walking to help with your balance and reduce pain. - Consider getting the RSV and COVID vaccines; discuss them at the next visit or arrange them at your local pharmacy. - Maintain your walking routine at home. - Inform us if you have significant changes in your pain levels or health. - Follow up in six months or as needed for any issues. [email or web address] Not available 04/07/2025 12:26:49 During this visit, I reviewed the patient's blood pressure, which remains well-controlled with her current medication regime of lisinopril and hydrochlorothiazi de. We refilled her prescription for another six months. We discussed and administered the influenza vaccine while exploring options for the RSV vaccine due to her age qualification. I introduced the idea of receiving the COVID-19 booster, presenting the benefits amidst her hesitation. The persistent nature of her back pain, exacerbated by a past fall, was also discussed, suggesting physical therapy as a potential management plan. We emphasized the importance of her walking routine with aid devices like her cane to help alleviate discomfort. [email or web address] Not available 04/07/2025 12:26:50 04/26/2025 [id number] advance care planning: care instructions Not available 04/26/2025 16:47:40 nutrition for older adults: care instructions Not available 04/26/2025 16:47:40 preventing falls : care instructions Not available 04/26/2025 16:47:40 Learning About Being Physically Active Not available 04/26/2025 16:47:40 - Engage in regular exercise, such as walking for 30 minutes, 5 days a week. - Follow a balanced diet rich in fruits and vegetables, reducing intake of simple carbs, salt, and saturated fats. - Continue daily activities that engage memory and cognitive functions. - Use olive oil or hydrogen peroxide ear drops as needed for ear wax management. [email or web address] Not available 04/26/2025 16:53:28 Discussed and explained advance directives such as standard forms to the . Face to face discussion lasted for a duration of ___ minutes. Not available 04/26/2025 16:12:10 Reason for Referral None Reported. Results Created Date Observation Date Name Description Value Unit Range Abnormal Flag Note LastModifiedBy Organization Detail LastModifiedTime 04/28/2004/28/2025 CBC WBC 5.1 x10 4.0-10 .5 Not Available [facility] [address] [facility] [address], [place], [address], 04/28/2025 10:08:45 04/28/2004/28/2025 CBC RBC 2.69 x10 3.50-5 .50 low Not Available [facility] [address] [facility] [address], [place], [address], 04/28/2025 10:08:45 04/28/2004/28/2025 CBC HGB 8.5 g/dL 12.0-1 6.0 low Not Available [facility] [address] [facility] [address], [place], [address], 04/28/2025 10:08:45 04/28/2004/28/2025 CBC HCT 27.0 % 37.0-4 7.0 low Not Available [facility] [address] [facility] [address], [place], [address], 04/28/2025 10:08:45 04/28/2004/28/2025 CBC MCV 100.4 fL 80.0-9 9.9 high Not Available [facility] [address] [facility] [facility] [address] [facility] [address], [place], [address], 04/28/2025 10:08:45 04/28/2004/28/2025 CBC MCH 31.4 pg 27.0-3 2.0 Not Available [facility] [address] [facility] [address] [facility] [address], [place], [address], 04/28/2025 10:08:45 04/28/2004/28/2025 CBC MCHC 31.3 g/dL 32.0-3 6.0 low Not Available [facility] [address] [facility] [address], [place], [address], 04/28/2025 10:08:45 04/28/2004/28/2025 CBC RDW 24.1 % 11.5-1 4.5 high Not Available [facility] [address] [facility] [address], [place], [address], 04/28/2025 10:08:45 04/28/2004/28/2025 CBC plt 384.2 x10 140.0- 451.0 Not Available [facility] [address] [facility] [address], [place], [address], 04/28/2025 10:08:45 04/28/2004/28/2025 CBC lymphocytes % 35.6 % 20.0-5 0.0 Not Available [facility] [address] [address], [place], [address], 04/28/2025 10:08:45 04/28/2004/28/2025 CBC granulcytes % 50.8 % 30.0-7 0.0 Not Available [facility] [address] [address], [place], [address], 04/28/2025 10:08:45 04/28/2004/28/2025 CBC monocytes % 9.7 % 2.0-16 .0 Not Available [facility] [address] [facility] [address], [place], [address], 04/28/2025 10:08:45 04/28/2004/28/2025 CBC granulcytes# 2.6 x10 Not Cindy ilable [facility] [address] [address], [place], [address], 04/28/2025 10:08:45 04/28/2004/28/2025 CBC lymphocytes # 1.8 x10 Not Available [facility] [address] [place], [address], 04/28/2025 10:08:45 04/28/2004/28/2025 CBC monocytes # 0.5 x10 Not Avai lable [facility] [address] [facility] [address], [place], [address], 04/28/2025 10:08:45 04/28/2004/28/2025 CMP (FEMA LE) glucose 138.0 mg/dL 60.0-9 9.0 high Not Available [facility] [address] [facility], [place], [address], 04/28/2025 10:44:02 04/28/2004/28/2025 CMP (FEMA LE) BUN (blood urea nitrogen) 23.0 mg/dL 10.0-2 6.0 Not Available [facility] [address] [facility], [place], [address], 04/28/2025 10:44:02 04/28/2004/28/2025 CMP (FEMA LE) creatinine (serum) 1.2 mg/dL 0.4-1. 5 Not Available [facility] [address] [facility], [place], [address], 04/28/2025 10:44:02 04/28/2004/28/2025 CMP (FEMA LE) BUN/creatini ne ratio 19.17 ratio Not Available [facility] [address] [facility] [address], [place], [address], 04/28/2025 10:44:02 04/28/2004/28/2025 CMP (FEMA LE) eGFR calculated 45.6 Not Available [facility] [address] [facility] [address] [facility] [address], [place], [address], 04/28/2025 10:44:02 04/28/20 25 04/28/2025 CMP (FEMA LE) total protein 7.3 g/dL 6.0-8. 5 Not Available [facility] [address] [facility] [address], [place], [address], 04/28/2025 10:44:02 04/28/20 25 04/28/2025 CMP (FEMA LE) total bilirubin 0.9 mg/dL 0.2-1. 3 Not Available [facility] [address] [facility] [address], [place], [address], 04/28/2025 10:44:02 04/28/2004/28/2025 CMP (FEMA LE) albumin 4.2 g/dL 3.5-5. 5 Not Available [facility] [address] [facility] 1, [place], [address], 04/28/2025 10:44:02 04/28/20 25 04/28/2025 CMP (FEMA LE) globulin 3.1 calc Not Available [facility] [address] [facility] 1, [place], [address], 04/28/2025 10:44:02 04/28/20 25 04/28/2025 CMP (FEMA LE) AST (SGOT) 22.0 U/L 0.0-46 .0 Not Available [facility] [address] [facility] 1, [place], [address], 04/28/2025 10:44:02 04/28/20 25 04/28/2025 CMP (FEMA LE) altv (SGPT) 12.0 U/L 13.0-6 9.0 abnormal Not Available [facility] [address] [facility] 1, [place], [address], 04/28/2025 10:44:02 04/28/20 25 04/28/2025 CMP (FEMA LE) A/G ratio 1.4 ratio Not Available [facility] [address] [facility] [address], [place], [address], 04/28/2025 10:44:02 04/28/2004/28/2025 CMP (FEMA LE) ALP phos 79.0 U/L 30.0-1 40.0 normal Not Available [facility] [address] [facility] [address], [place], [address], 04/28/2025 10:44:02 04/28/2004/28/2025 CMP (FEMA LE) calcium 9.4 mg/dL 8.4-10 .5 Not Available [facility] [address] [facility] [address] [facility] [address], [place], [address], 04/28/2025 10:44:02 04/28/20 25 04/28/2025 CMP (FEMA LE) sodium 139.0 mmol/ L 136.0- 145.0 Not Available [facility] [address] [facility] [address], [place], [address], 04/28/2025 10:44:02 04/28/2004/28/2025 CMP (FEMA LE) potassium 4.2 mmol/ L 3.5-5. 1 Not Available [facility] [address] [facility], [place], [address], 04/28/2025 10:44:02 04/28/2004/28/2025 CMP (FEMA LE) chloride 108.0 mmol/ L 98.0-1 10.0 normal Not Available [facility] [address] [facility] [address], [place], [address], 04/28/2025 10:44:02 04/28/20 25 04/28/2025 CMP (FEMA LE) C02 23.0 mmol/ L 22.0-3 1.0 Not Available [facility] [address] [facility], [place], [address], 04/28/2025 10:44:02 04/28/2004/28/2025 CMP (FEMA LE) anion gap 8.0 calc Not Available [facility] [address] [facility] [address], [place], [address], 04/28/2025 10:44:02 04/28/2004/28/2025 CMP (FEMA LE) osmolality 292.6 calc Not Available [facility] [address] [facility], [place], [address], 04/28/2025 10:44:02 04/28/2004/28/2025 LIPID PROFI LE (FEMA LE) cholesterol 170.0 mg/dL 0.0-20 0.0 Not Available [facility] [address] [facility], [place], [address], 04/28/2025 10:44:05 04/28/2004/28/2025 LIPID PROFI LE (FEMA LE) trig 79.0 mg/dL 0.0-15 0.0 Not Available [facility] [address] [facility], [place], [address], 04/28/2025 10:44:05 04/28/2004/28/2025 LIPID PROFI LE (FEMA LE) HDL - direct 66.0 mg/dL >40.0 Not Available [facility] [address] [facility], [place], [address], 04/28/2025 10:44:05 04/28/2004/28/2025 LIPID PROFI LE (FEMA LE) VLDL - direct 15.8 mg/dL Not Available [facility] [address] [facility], [place], [address], 04/28/2025 10:44:05 04/28/2024 0404/28/2025 LIPID PROFI LE (FEMA LE) LDL - direct 88.2 mg/dL 0.0-13 0.0 Not Available [facility] [address] [facility] [address], [place], [address], 04/28/2025 10:44:05 04/28/2004/28/2025 TSH TSH 1.23 uIU/m L 0.49-3 .82 Not Available [facility] [address] [facility] [address], [place], [address], 04/28/2025 10:51:45 04/29/2004/29/2025 HBA1C hemaglobin A1C 5.3 4.2-6. 5 Not Available [facility] [address] [facility] [address], [place], [address], 04/29/2025 18:08:10 Result Notes None recorded. Problems Name Problem SNOMED Code Status Onset Date Resolution Date Notes Provider Name and Address Organization Details Recorded Time Venous stasis 33262432 Active 2021 venous stasis disease; with venous ulcers; 06/11/20 10:39AM by Ghada Pires RN, Office Visit; Promoted ; acuity set as *; GHADA martell [facility] 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 14:19:58 Colonosco py Completed 202109/23/2024 Colonosc opy; 03/11/[address] [facility] by Dr. Maguire ; 06/11/20 10:39AM by Ghada Pires RN, Office Visit; Promoted ; acuity set as *; GHADA martell [facility] 5 14:19:48 Benign essential hypertens ion 0884859 Active 2021 Hyperten roger; 06/11/20 10:39AM by Ghada Pires, RN, Office Visit; Promoted ; acuity set as *; GHADA martell [facility] 5 14:19:39 History of tubal ligation 118588338 Completed 202109/23/2024 Tubal Ligation ; 06/11/20 10:39AM by Ghada Pires RN, Office Visit; Promoted ; acuity set as *; GHADA martell [facility] 5 14:20:08 Osteoarth ritis 081055839 Active 2021 osteoart hritis; 06/11/20 10:39AM by Ghada Pires RN, Office Visit; Promoted ; acuity set as *; GHADA martell [facility] 5 14:20:25 Hypothyro idism 79376879 Active 2022 GHADA martell [facility] 14:20:10 Anemia 738251177 Active 2022 GHADA martell [facility] 5 14:19:36 Chronic pain 50548882 Active 2023 GHADA martell [facility] 5 14:19:43 Periphera l vascular disease 531402402 Active 2023 GHADA martell [facility] 5 14:20:30 Fracture of pelvis 00495437 Active 2024 GHADA martell [facility] 5 14:20:03 Fracture of multiple pubic rami 583220038 [facility] 14:20:01 Lives in retirement 273061648 Completed 202409/23/2024 [facility] 14:20:18 Dementia 27940785 Active 2024 GHADAHERMILO PIRES [facility] 5 14:19:52 Myelodysp lastic syndrome (clinical ) 231070701 Active 2024 GHADA PIRES [facility] 5 14:20:22 Celluliti s of face 503888809 Active 2024 SUDHAKAR ALBERTO [facility] 5 16:02:21 Problem Notes None recorded. Procedures Surgical History Date Name Laterality Status Provider Name and Address Organization Details Recorded Time 2023 Colonoscopy completed GHADAHERMILO PIRES [facility] 4 18:25:04 2023 esophagogastroduodenoscopy completed VINH PIRES [facility] 4 18:27:03 Imaging Results None recorded. Procedure Notes None recorded. Medical Equipment None Reported. Allergies Allergen ID Allergen Name Allergen Category Reaction Reaction Severity Criticality Documentation Date Start Date Code Code System Note Provider Name and Address Organization Details Recorded Time 88234 terbinafi ne medicatio n rash Not available Not available 01/26/2023 89072 RxNorm React ion: Rash; Comme nt: Recor ded 06/11 10:39 AM by Vinh Pires RN, Offic e Visit ; Promo leslie; Signi fican ce: *; Reaso n: Drug aller gy; ; Not Available [facility] 3 02:23:25 69451 codeine medicatio n Not available Not available Not available 01/26/2023 2670 RxNorm Comme nt: Recor ded 06/11 10:39 AM by Vinh Pires RN, Offic e Visit ; Promo leslie; Signi fican ce: *; ; Not Available [facility] 3 02:23:27 12503 Del-Mycin medicatio n Not available Not available Not available 01/26/2023 97746 8 RxNorm Comme nt: Recor ded 06/11 10:39 AM by Vinh Pires RN, Offic e Visit ; Promo leslie; Signi fican ce: *; ; Not Available [facility] 3 02:23:27 00125 Zithromax medicatio n Not available Not available Not available 01/26/2023 99365 4 RxNorm Comme nt: Recor ded 06/11 10:39 AM by Vinh Pires RN, Offic e Visit ; Promo leslie; Signi fican ce: *; ; Not Available [facility] 3 02:23:27 11047 sulfameth oxazole / trimethop rim medicatio n Not available Not available Not available 01/26/2023 18300 RxNorm Comme nt: Recor ded 06/11 10:39 AM by Vinh Pires RN, Offic e Visit ; Promo leslie; Signi fican ce: *; ; Not Available [facility] 3 02:23:27 01356 Keflex medicatio n Not available Not available Not available 01/26/2023 19288 7 RxNorm Comme nt: Recor ded 06/11 10:39 AM by Vinh Pires RN, Offic e Visit ; Promo leslie; Signi fican ce: *; ; Not Available [facility] 3 02:23:27 22521 Product containin g penicilli n (product) medicatio n Not available Not available Not available 01/26/2023 89698 8001 SNOMED Comme nt: Recor ded 06/11 10:39 AM by Vinh Pires RN, Offic e Visit ; Promo leslie; Sara mcgovern ce: *; ; Not Available [facility] 3 02:23:27 96859 Substance with sulfonami de structure and antibacte rial mechanism of action (substanc e) medicatio n Not available Not available Not available 01/26/2023 47864 8003 SNOMED Comme nt: Recor ded 06/11 10:39 AM by Vinh Pires RN, Offic e Visit ; Promo leslie; Sara mcgovern ce: *; ; Not Available [facility] 3 02:23:27 08164 cefoxitin medicatio n Not available Not available Not available 01/26/2023 2189 RxNorm Comme nt: Recor ded 06/11 10:39 AM by Vinh Pires RN, Offic e Visit ; Promo leslie; Sara mcgovern ce: *; ; Not Available [facility] 3 02:23:27 Medications Name Sig Start Date Stop Date Status Note LastModified by Organization Details LastModified Time celecoxib 200 mg capsule TAKE 1 CAPSULE BY MOUTH ONCE DAILY active Not Available Not Available No t Available azelastin e 0.05 % eye drops INSTILL 1 DROP INTO EACH EYE DIRECTED active Not Available Not Available No t Available loperamid e 2 mg capsule Take 1 capsule twice a day by oral route as needed, for diarrhea . active Not Available Not Available No t Available donepezil 10 mg tablet TAKE 1 TABLET BY MOUTH ONCE DAILY AT BEDTIME active Not Available Not Available No t Available alendrona te 70 mg tablet TAKE 1 TABLET BY MOUTH ONCE A WEEK active Not Available Not Available No t Available amlodipin e 2.5 mg tablet Take 1 tablet every day by oral route. 2024 active Not Available Not Available Not Avai lable amoxicill in 500 mg tablet 11/11 completed Not Available Not Available Not Available pentoxify lline ER 400 mg tablet,ex tended release TAKE 1 TABLET BY MOUTH THREE TIMES DAILY active Not Available Not Available No t Available levothyro xine 25 mcg tablet TAKE 1 TABLET BY MOUTH ONCE DAILY active Not Available Not Available No t Available meloxicam 7.5 mg tablet Take 1 tablet by mouth once daily active Not Available Not Available No t Available potassium chloride ER 20 mEq tablet,ex tended release(p art/cryst ) TAKE 1 TABLET BY MOUTH ONCE DAILY active Not Available Not Available No t Available hydrocodo ne 7.5 mg-acetam inophen 325 mg tablet Take 1 tablet every 6 hours by oral route as needed. 09/23 completed Not Available Not Available Not Available pantopraz ole 40 mg tablet,de layed release active As needed Not Available Not Available Not Available gabapenti n 300 mg capsule TAKE 1 CAPSULE BY MOUTH THREE TIMES DAILY active Not Available Not Available No t Available lisinopri l 20 mg-hydroc hlorothia zide 25 mg tablet Take 1 tablet by mouth once daily 2024 active vo JR/tn Not Available Not Available Not Avai lable acetamino phen 300 mg-codein e 60 mg tablet TAKE ONE-HALF TO ONE TABLET BY MOUTH EVERY 6 HOURS NEEDED active Not Available Not Available No t Available mupirocin 2 % topical ointment APPLY A SMALL AMOUNT TO THE AFFECTED AREA THREE TIMES DAILY active Not Available Not Available No t Available triamcino lone acetonide 0.1 % lotion TID prn 2017 active Recorded 12/13/19 18 11:11AM by Abbe Maguire MD, Office Visit; Refill Quantity : 60; Tube; Not Available Not Available Not Available ondansetr on 4 mg disintegr ating tablet active Not Available Not Available Not Available oxycodone 5 mg tablet 08/14 completed Not Available Not Available Not Available Restasis 0.05 % eye drops in a dropperet te INSTILL 1 DROP INTO EACH EYE TWICE DAILY active Not Available Not Available No t Available Cortizone -10 1 % topical spray prn 02/22 completed 0; Recorded 06/11/20 22 10:39AM by Ghada Pires RN, Office Visit; Not Available Not Available Not Available Calcium 600 + D(3) 600 mg-5 mcg (200 unit) tablet TID active Recorded 03/14/20 10 10:24AM by Ghada Pires RN, Office Visit; Refill Quantity : 0; Not Available Not Available Not Available Vitamin C daily 02/22 completed 0; Recorded 06/11/20 22 10:39AM by Ghada Pires RN, Office Visit; Not Available Not Available Not Available meloxicam QD 02/22 completed Disregar d prescrip tion for meloxica m; Recorded 06/11/20 22 11:40AM by Abbe Maguire MD, Office Visit; Refill Quantity : 100; Tablet; Not Available Not Available Not Available Flonase QD per nostril prn 02/22 completed vo JR/tn; 173; Recorded 12/13/19 18 10:33AM by Ghada Pires RN (Authori zed through Abbe Maguire MD), Office Visit; Refill Quantity : 1; Bottle; Not Available Not Available Not Available lisinopri l-hydroch lorothiaz ulanne QD 02/22 completed Recorded 06/11/20 11:37AM by Abbe Maguire MD, Office Visit; Refill Quantity : 100; Tablet; Not Available Not Available Not Available pentoxify lline TID 02/22 completed vo JR/tn; 173; Recorded 08/15/19 23 4:29PM by Sudhakar leary (Authori zed through Abbe Maguire MD), Refill Request; Mail Order Quantity : 270 Tablet; Refill Quantity : 120; Tablet; Not Available Not Available Not Available hydrocort isone BID prn 02/22 completed Recorded 12/03/19 21 10:58AM by Ruben Guevara, Office Visit; Refill Quantity : 60; Gram; Not Available Not Available Not Available [facility] Levothyro xine Sodium QD 02/22 completed Recorded 06/11/20 22 6:24PM by Abbe Maguire MD, Office Visit; Refill Quantity : 100; Tablet; Not Available Not Available Not Available donepezil daily at bedtime 02/22 completed Recorded 06/11/20 22 11:39AM by Abbe Maguire MD, Office Visit; Refill Quantity : 100; Tablet; Not Available Not Available Not Available Acetamino phen W/Codeine 1/2-1 Q 6 hours, as needed 02/22 completed Recorded 09/09/19 23 1:32PM by Abbe Maguire MD, Refill Request; Refill Quantity : 0; Not Available Not Available Not Available Vitamins and Minerals qd 02/22 completed 0; Recorded 06/11/20 22 10:39AM by Ghada Pires RN, Office Visit; Not Available Not Available Not Available Eliquis 2.5 mg tablet 08/14 completed Not Available Not Available Not Available potassium chloride ER 20 mEq tablet,ex tended release Take 1 tablet by mouth once daily 2024 active Not Available Not Available Not Avai lable Vitals Date Recorded Body height Body mass index (BMI) Body weight Oxygen saturation Heart rate Respiratory rate Body temperature Systolic And Diastolic Provider Name and Address Organization Details Last Updated DateTime 5 160.02 cm 24.1 kg/m2 73069.2 6 g 94 % 76 /min 18 /min 98.5 [degF] 100/62 mm[Hg] SUDHAKAR CORDOVA [facility] 5 16:43:06 Date Recorded Body height Body mass index (BMI) Body weight Oxygen saturation Heart rate Respiratory rate Body temperature Systolic And Diastolic Provider Name and Address Organization Details Last Updated DateTime 5 160.02 cm 23.9 kg/m2 34270.9 7 g 94 % 82 /min 18 /min 98 [degF] 138/64 mm[Hg] SUDHAKAR CORDOVA [facility] 5 15:28:33 Date Recorded Body height Body mass index (BMI) Body weight Oxygen saturation Heart rate Respiratory rate Body temperature Systolic And Diastolic Provider Name and Address Organization Details Last Updated DateTime 5 160.02 cm 24.6 kg/m2 25826.0 4 g 98 % 82 /min 18 /min 98.7 [degF] 118/60 mm[Hg] SUDHAKAR CORDOVA [facility] 5 11:45:19 Date Recorded Body height Body mass index (BMI) Body weight Oxygen saturation Heart rate Respiratory rate Body temperature Systolic And Diastolic Provider Name and Address Organization Details Last Updated DateTime 5 160.02 cm 24.9 kg/m2 03418.7 3 g 96 % 94 /min 20 /min 99 [degF] 124/54 mm[Hg] GHADA PIRES [facility] 5 16:14:12 Social History Question Answer Notes LastModified by [employer] Details LastModified Time Tobacco Smoking Status Never Smoker SUDHAKAR martell [facility] 02/22/2023 14:57:57 What Was The Date Of Your Most Recent Tobacco Screening? 11/30/2024 [email or web address] Information not available 11/30/2024 What Is Your Relationship Status? [email or web address] Information not available 02/22/2023 Sex: Unknown Functional Status Question Answer Note LastModified by [employer] Details LastModified Time Do you use any illicit or recreational drugs? No Information not available 04/08/2023 Do you or have you ever used any other forms of tobacco or nicotine? No Information not available 04/08/2023 What is your level of alcohol consumption? None [email or web address] Information not available 04/08/2023 Mental Status None recorded. Family History Nothing Reported. Medical History No medical history recorded. Gynecological HistoryNo gynecological history recorded. Obstetrics History GPAL:G 0 P 0 0 0 0 Immunizations Vaccine Type Date Status Note Provider Nam e and Address Organization Details Recorded Time Influenza, split virus, trivalent, preservative 2 completed GHADA martell [facility] 04/08/2023 12:42:47 Influenza, split virus, trivalent, preservative 0 completed Not Available [facility] 01/26/2023 02:51:21 Influenza, split virus, trivalent, preservative 2 completed GHADA martell [facility] 04/08/2023 12:42:47 Influenza, split virus, trivalent, preservative 2 completed GHADA PIRES null, [facility] 04/08/2023 12:42:47 Influenza, split virus, trivalent, preservative 8 completed GHADA PIRES null, [facility] 04/08/2023 12:42:47 Influenza, split virus, trivalent, preservative 4 completed GHADA PIRES null, [facility] 04/08/2023 12:42:47 Influenza, split virus, trivalent, preservative 9 completed GHADA PIRES null, [facility] 04/08/2023 12:42:47 Influenza, split virus, trivalent, preservative 7 completed GHADA PIRES null, [facility] 04/08/2023 12:42:47 Influenza, adjuvanted, trivalent, PF 5 completed SUDHAKAR martell, [facility] 04/07/2025 12:18:29 Influenza, high-dose, quadrivalent, PF 2 completed GHADA martell, [facility] 04/08/2023 12:42:47 Influenza, high-dose, trivalent, PF 8 completed GHADA PIRES null, [facility] 04/08/2023 12:42:47 Influenza, high-dose, trivalent, PF 9 completed GHADA PIRES null, [facility] 04/08/2023 12:42:47 Influenza, split virus, trivalent, preservative 1 completed GHADA martell, [facility], [employer] 04/08/2023 12:42:47 Influenza, high-dose, quadrivalent, PF 3 completed Not Available [facility] 04/26/2025 15:44:29 Influenza, high-dose, trivalent, PF 4 completed Not Available [facility] 04/26/2025 15:44:29 Past Encounters Encounter ID Performer Location Encounter Start Date Encounter Closed Date Diagnosis/Indication Diagnosis SNOMED-CT Code Diagnosis ICD10 Code Diagnosis IMO Codes Diagnosis Note [id number] Abbe Maguire MD [facility] ([facility] [address] [place] [address] [phone] 04/08/2023 11:47:32 04/08/2023 13:20:15 Adult health examination 140911915 Z00.00 Hypothyroidism 91429636 E03.9 Anemia 380748287 D64.9 [id number] Abbe Maguire MD [facility] ([facility]) [address] [place] [address] [id number] 5 02/22/2023 14:32:35 02/25/2023 14:02:38 Adult health examination 356408639 Z00.01 Screening for cardiovascular system disease 338544993 Z13.6 Screening for osteoporosis 404152470 Z13.820 Hypothyroidism 57548962 E03.9 Essential hypertension 56162856 I10 Pre-surger y evaluation 997304256 Z01.818 Anemia 209078626 D64.9 [id number] Abbe Maguire MD [facility] ([facility]) [address] [place] [address] [id number] 03/08/2023 12:12:26 03/16/2023 22:51:12 Anemia 493842595 D64.9 Blood smear demonstrat ed multiple abnormalit ies [id number] Abbe Maguire MD [facility] ([facility]) [address] [place] [address] [phone] 08/14/2023 14:03:11 08/14/2023 17:43:02 Benign essential hypertension 6278834 I10 Chronic pain 71364450 G8 9.29 Fatigue 47447030 R53.83 Anemia 209588166 D64.9 [id number] Abbe Maguire MD [facility] ([facility]) [address] [place] [address] [phone] 11/12/2023 14:48:42 11/12/2023 16:01:41 Benign essential hypertension 5836700 I10 Chronic pain 04354485 G8 9.29 Hypothyroidism 56914541 E03.9 Peripheral vascular disease 654119071 I73.9 Myelodyspl astic syndrome (clinical) 800231006 D46.9 [id number] Abbe Maguire MD [facility] ([facility]) [address] [place] [address] [id number] 5 03/16/2024 13:39:53 03/16/2024 16:08:49 Benign essential hypertension 6669917 I10 Osteoarthritis 940848012 M19.90 [id number] MAKENZIE EDWARDS [facility] ([facility]) [address] [place] [address] [id number] 05/01/2024 11:30:07 05/01/2024 11:58:08 Acute gastroenteritis 26798852 K52.9 Discussed BRATS diet, small frequent sips of fluid. Rest.VSS. No signs of acute abd on exam today.If you develop fever, no urine output over 24 hours, bloody stools/maura sis, abd pain, or concerns arise return for re-eval. [id number] GENESIS ARTHUR PA-C [facility] ([facility]) [address] [place] [address] [id number] 07/22/2024 12:32:24 08/03/2024 08:04:14 Fracture of pelvis 06042237 S32.9XXA S3 FRACTURE D/C GABAPENTIN , TYLENOL 500MG 2 PO Q 6 HOURS PRN Fracture o f multiple pubic rami 029366619 S32.82XA Hospital records reviewed. continue with meds and therapy orders. Essential hypertension 99089252 I10 [id number] Abbe Maguire MD [facility] ([facility]) [address] [place] [address] [id number] 07/29/2024 08:05:59 07/31/2024 12:33:29 Fracture of multiple pubic rami 528288594 S32.82XA [id number] Abbe Maguire MD [facility] ([facility]) [address] [place] [address] [id number] 5 07/30/2024 08:52:38 08/02/2024 21:49:11 Fracture of multiple pubic rami 497631602 S32.82XA Lives in retirement 16 5514016 Z59.3 Anemia 876954287 D64.9 Benign ess ential hypertension 4643298 I10 Hypothyroidism 87214517 E03.9 Peripheral vascular disease 849768743 I73.9 Dementia 91846260 F03.90 Myelodyspl astic syndrome (clinical) 004686281 D46.9 [id number] Abbe Maguire MD [facility] ([facility]) [address] [place] [address] [id number] 5 08/12/2024 09:49:02 08/12/2024 10:41:44 Fracture of multiple pubic rami 278691942 S32.82XA Essential hypertension 55167172 I10 [id number] Abbe Maguire MD [facility] ([facility]) [address] [place] [address] [id number] 09/23/2024 13:44:27 09/23/2024 14:43:19 Benign essential hypertension 2002311 I10 Fracture of pelvis 88520 009 S32.9XXA [id number] Abbe Maguire MD [facility] ([facility]) [address] [place] [address] [id number] 5 11/25/2024 11:54:40 12/28/2024 11:08:28 Fracture of multiple pubic rami 192613919 S32.82XA Fracture of pelvis 08042 009 S32.9XXA Mass of wrist 417972337 R22.31 13168347 Lesion of skin of nose 0728841793 0923683 L98.9 6298591128 Cellulitis of face 2001 L03.211 [id number] Abbe Maguire MD [facility] ([facility]) [address] [place] [address] [id number] 11/30/2024 15:56:40 12/28/2024 12:28:58 Cellulitis of face 895272119 L03.211 [id number] Abbe Maguire MD [facility] ([facility]) [address] [place] [address] [id number] 12/31/2024 14:44:10 01/11/2025 11:09:53 Cellulitis of face 319012748 L03.211 [id number] Abbe Maguire MD [facility]) [address] [place] [address] [id number] 04/07/2025 11:23:10 04/13/2025 10:06:54 Essential hypertension 25025282 I10 Requires i nfluenza virus vaccination 953246751 Z23 184507 [id number] Abbe Maguire MD [facility] ([facility]) [address] [place] [address] [id number] 5 04/26/2025 15:34:56 04/27/2025 11:24:18 Preventive procedure 510835542 Z00.00 [id number] - Conducted routine wellness visit with emphasis on dietary habits and exercise. - Educated on preventive health focusing on diet modificati on and fall prevention strategies . Memory impairment 107350 006 R41.3 - Addressed memory function with understand ing of current capabiliti es. - Observatio n for changes and reinforcem ent of healthy lifestyle as preventive measures. [id number] Abbe Maguire MD [facility] ([facility]) [address] [place] [address] [id number] 5 04/28/2025 09:38:07 04/29/2025 11:59:01 Benign essential hypertension 3723085 I10 Hypothyroidism 91704156 E03.9 Anemia 996010958 D64.9 Health Concerns Section Related Observation LastModified by Organization Detai ls LastModified Time None Recorded Concern Status LastModified by Organization Details LastModified Time None Recorded Advance Directives Directive None Recorded Payers Insurance Date Sequence Insurance Name Policy Number Policy Sebastian Covered Member ID Sebastian Member ID Guarantor Name 04/07/2025 1 [employer] (MEDICARE REPLACEMENT/A DVANTAGE - PPO) Sole Luna [id number] Sole Luna 05/03/2025 1 [facility] (MEDICARE REPLACEMENT/A DVANTAGE - HMO) [id number] Sole Luna [id number] Sole Luna 04/07/2025 1 [facility] (MEDICARE REPLACEMENT/A DVANTAGE - O) [id number] Sole Grossmannavarro [id number] Sole Luna Notes Date Note Type Note Provider Name and Address Organization Details Recorded Time 5 text/html jr skin lesionReported by PatientHPIFor location, patient reportsnose (left side). For severity, patient reportsmoderate. For duration, patient reports___ weeks. For timing, patient reportsabrupt. For alleviating factors, patient reportsantibiotic ointment. For associated symptoms, patient reportsno fever. 1 week f/u on skin lesion on left side of her nose, pt states she feels like it is getting better Abbe Maguire MD [address] [place] [address], [phone], [facility] 12/26/2024 08:29:03 5 text/html jr skin lesionReported by PatientHPIFor location, patient reportsnose (left side). For quality, patient reportstender. For severity, patient reportsmoderate. For duration, patient reports___ weeks. For timing, patient reportsabrupt. For alleviating factors, patient reportsantibiotic ointment. For associated symptoms, patient reportsno fever. Pt states her nose is looking better Abbe Maguire MD [address] [place] [address], [phone], [facility] 01/09/2025 11:12:57 5 text/html Hypertension F/UReported by PatientHPIFor medications, patient reportstaking medications as directedandno side effects from medication. For associated symptoms, patient reportsno dizziness,no lightheadedness,no chest pain,no shortness of breath,no palpitations,no edema, andno headache. Musculoskeletal PainReported by PatientHPIFor quality, patient reportssharpanddull. For severity, patient reportsdriving impairmentbut reportsimproving. For associated symptoms, patient reportsweak limbs. For location, patient reportslumbar spine. For duration, patient reportspresent for 1-6 months. For timing, patient reportsconstantandsudden. For alleviating factors, patient reportsrestandchanging position. For aggravating factors, patient reportsmovement/positioning ,bending over, andtwisting. For adls affected, patient reportswalking,sweeping,mop ping,bathing, anddressing. The patient is an 84 year old female presenting with a routine follow-up for hypertension management and discussion about vaccinations. Essential Hypertension: - Blood pressure is well controlled at 118/60. - Medications include lisinopril and hydrochlorothiazide. Osteoarthritis: - Increased muscle and back pain, exacerbated by previous fall. - Benefits from using a cane for ambulation. Influenza Vaccination: - Received flu shot during the visit. Fall with subsequent Back Pain: - Persistent back pain following a past fall. Potential RSV Vaccination: - Eligible for the RSV vaccine due to age. Potential COVID-19 Vaccination: - Not received the current COVID booster. - Expressed reluctance to receive COVID vaccination. Abbe Maguire MD [address] [place] [address], [phone], [facility], [facility] 04/10/2025 23:38:25 5 text/html Medicare Annual Wellness VisitReported by PatientSocial/Behavioral HistoryFor fracture risk, patient reportshistory of fracturesandprevious musculoskeletal injuries. For diet and nutrition, patient reportshealthy diet.Mental Status:For concentration and memory, patient reportsmemory lapses or lossandforgetting words. For depression risk, patient reportsnever feels sad, empty, or tearful. For orientation, patient reportsno disorientation to timeandno disorientation to place. For speech/motor difficulties, patient reportsno speech difficulties,no difficulty with fine manipulative tasks, andno difficulty writing/copying.Functional AbilityFor instrumental activities of daily living, patient reportsunable to manage medications without assistanceandunable to to prepare meals without assistancebut reportsable to do house work with limited or no assistanceandable to use the phone with limited or no assistance. For activities of daily living, patient reportsable to bathe with limited or no assistance,able to contol urination and bowels,able to dress with limited or no assistance,able to feed self with limited or no assistance,able to get out of chair or bed with limited or no assistance,able to groom with limited or no assistance, andable to toilet with limited or no assistance. For falls risk assessment, patient reportsno fall in the past yearandno fall since last visit. The patient is an 84-year-old female presenting with a Medicare Annual Wellness Visit. Preventive procedure: - Attending for routine health maintenance. Memory impairment: - Reports an episode of forgetting a cooking recipe, indicating memory difficulties. - Discusses capabilities in daily activities, such as meal preparation. Abbe Maguire MD [address] [place] [address], [phone], [facility] 04/26/2025 18:59:42 OBGyn Episode No OBEpisode recorded.
--- OUTSIDE RECORDS SUMMARY | 2025-06-14 11:39 | XMS_ITS | Continuity of Care Document ---
Author Organization [place] - [facility] Yamilex Gutierrez, [facility] ([facility]) Address [address] [facility] [place] [address] Care Team Providers Care Single Pointed Operator Name Role Phone ABBE MAGUIRE Primary Care Provider [phone] Assessment Encounter Date Assessment Date Assessment LastModified by Organization Details LastModified Time 04/26/2025 04/26/2025 - 84-year-old female with history [...] Not available Not available Not available Lab None recorded. Referral None recorded. Procedures None recorded. Surgeries None recorded. Imaging None recorded. Medication Orders donepezil 10 mg tablet 2024 025 [facility], [address], [place], [address], 04/26/2025 16:47:55 Patient TargetsNo targets recorded. Patient Instructions Encounter Date Encounter Id Patient Instructions Last Modified By Organization Details Last Modified Time 04/26/2025 [id number] advance care planning: care instructions Not available [...] 04/26/2025 16:12:10 Reason for Referral None Reported. Problems Name Problem SNOMED Code Status Onset Date Resolution Date Notes Provider Name and Address Organization Details Recorded Time Venous stasis 01837443 Active 2021 venous stasis disease; with venous ulcers; 06/11/20 10:39AM by Ghada Pires RN, Office Visit; Promoted ; acuity set as *; GHADA martell [facility] 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 5 14:19:58 Colonosco py Completed 202109/23/2024 Colonosc opy; 03/11/09 [place] [facility] [place] ; 06/11/20 10:39AM by Ghada Pires RN, Office Visit; Promoted ; acuity set as *; GHADA martell [facility] 5 14:19:48 Benign essential hypertens ion 0821892 Active 2021 Hyperten roger; 06/11/20 10:39AM by Ghada Pires RN, Office Visit; Promoted ; acuity set as *; GHADA SHERRY martell [facility] 5 14:19:39 History of tubal ligation 660611859 Completed 202109/23/2024 Tubal Ligation ; 06/11/20 10:39AM by Ghada Pires RN, Office Visit; Promoted ; acuity set as *; GHADA martell [facility] 5 14:20:08 Osteoarth ritis 378727028 Active 2021 osteoart hritis; 06/11/20 10:39AM by Ghada Pires RN, Office Visit; Promoted ; acuity set as *; GHADA martell [facility] 5 14:20:25 Hypothyro idism 10245877 Active 2022 GHADA martell [facility] 5 14:20:10 Anemia 972384594 [facility] 2022 [facility] 14:19:36 Chronic pain 92894833 Active 2023 GHADA martell [facility] 5 14:19:43 Periphera l vascular disease 934495179 Active 2023 GHADA martell [facility] 5 14:20:30 Fracture of pelvis 68748696 Active 2024 GHADA martell [facility] 5 14:20:03 Fracture of multiple pubic rami 236007842 Active 2024 GHADA martell [facility] 5 14:20:01 Lives in halfway 046240299 Completed 202409/23/2024 [facility] 14:20:18 Dementia 87602941 Active 2024 GHADA PIRES [facility] 5 14:19:52 Myelodysp lastic syndrome (clinical ) 417485406 Active 2024 GHADA PIRES [facility] 5 14:20:22 Celluliti s of face 825703940 Active 2024 SUDHAKAR CORDOVA DOLLY [facility] 5 16:02:21 Problem Notes None recorded. Procedures Surgical History Date Name Laterality Status Provider Name and Address Organization Details Recorded Time 2023 Colonoscopy completed GHADAHERMILO PIRES [facility] 4 18:25:04 2023 esophagogastroduodenoscopy completed [facility]QU[facility] 4 18:27:03 Imaging Results None recorded. Procedure Notes None recorded. Medical Equipment None Reported. Allergies Allergen ID Allergen Name Allergen Category Reaction Reaction Severity Criticality Documentation Date Start Date Code Code System Note Provider Name and Address Organization Details Recorded Time 84264 terbinafi ne medicatio n rash Not available Not available 01/26/2023 99043 RxNorm React ion: Rash; Comme nt: Recor ded 06/11 10:39 AM by Pradip Pires RN, Offic e Visit ; Promo leslie; Signi froilan ce: *; Reaso n: Drug aller gy; ; Not Available [facility] 3 02:23:25 91522 codeine medicatio n Not available Not available Not available 01/26/2023 2670 RxNorm Comme nt: Recor ded 06/11 10:39 AM by Pradip Pires RN, Offic e Visit ; Promo leslie; Signi fican ce: *; ; [facility] 3 02:23:27 46898 Del-Mycin medicatio n Not available Not available Not available 01/26/2023 74572 8 RxNorm Comme nt: Recor ded 06/11 10:39 AM by Pradip Pires RN, Offic e Visit ; Promo leslie; Signi fican ce: *; ; [facility] 3 02:23:27 25685 Zithromax medicatio n Not available Not available Not available 01/26/2023 45473 4 RxNorm Comme nt: Recor ded 06/11 10:39 AM by Pradip Pires RN, Offic e Visit ; Promo leslie; Signi fican ce: *; ; Not Available [facility] 3 02:23:27 97608 sulfameth oxazole / trimethop rim medicatio n Not available Not available Not available 01/26/2023 29402 RxNorm Comme nt: Recor ded 06/11 10:39 AM by Pradip Pires RN, Offic e Visit ; Promo leslie; Signi fican ce: *; ; Not Available [facility] 3 02:23:27 21531 Keflex medicatio n Not available Not available Not available 01/26/2023 77688 7 RxNorm Comme nt: Recor ded 06/11 10:39 AM by Pradip Pires RN, Offic e Visit ; Promo leslie; Signi fican ce: *; ; Not Available [facility] 3 02:23:27 20252 Product containin g penicilli n (product) medicatio n Not available Not available Not available 01/26/2023 38138 8001 SNOMED Comme nt: Recor ded 06/11 10:39 AM by Pradip Pires RN, Offic e Visit ; Promo leslie; Signi fican ce: *; ; Not Available [facility] 3 02:23:27 67969 Substance with sulfonami de structure and antibacte rial mechanism of action (substanc e) medicatio n Not available Not available Not available 01/26/2023 76117 8003 SNOMED Comme nt: Recor ded 06/11 10:39 AM by Pradip Pires RN, Offic e Visit ; Aron nelson; Sara mcgovern ce: *; ; Not Available [facility] 3 02:23:27 27959 cefoxitin medicatio n Not available Not available Not available 01/26/2023 2189 RxNorm Comme nt: Recor ded 06/11 10:39 AM by Pradip Pires RN, Offic e Visit ; Aron nelson; Sara mcgovern ce: *; ; Not Available [facility] 3 02:23:27 Medications Name Sig Start Date [...] 18 10:33AM by Ghada Pires RN (Authori israel through Abbe Maguire MD), Office Visit; Refill Quantity : 1; Bottle; Not Available Not Available Not Available lisinopri l-hydroch lorothiaz luanne QD 02/22 completed Recorded 06/11/20 22 11:37AM by Abbe Maguire MD, Office Visit; Refill Quantity : 100; Tablet; Not Available Not Available Not Available pentoxify lline TID 02/22 completed vo JR/tn; 173; Recorded 08/15/19 23 4:29PM by Sudhakar leary (Authori [email or web address] through Abbe Maguire MD), Refill Request; Mail [...] Minerals qd 02/22 completed 0; Recorded 06/11/20 10:39AM by Ghada Pires RN, Office [...] Updated DateTime 5 160.02 cm 24.9 kg/m2 09398.7 3 g 96 % 94 /min 20 /min 99 [degF] 124/54 mm[Hg] GHADA PIRES [facility] 5 16:14:12 Social History Question Answer Notes LastModified by [employer] Mobile ion Details LastModified Time Tobacco Smoking Status Never Smoker SUDHAKAR martell [facility] 02/22/2023 14:57:57 What Was The Date Of Your Most Recent Tobacco Screening? 11/30/2024 [email or web address] Information not available 11/30/2024 What Is Your Relationship Status? sheba Information not available 02/22/2023 Sex: Unknown Functional Status Question Answer Note LastModified by [employer] Mobile ion Details LastModified Time Do you use any illicit or recreational drugs? No Information not available 04/08/2023 Do you or have you ever used any other forms of tobacco or nicotine? No Information not available 04/08/2023 What is your level of alcohol consumption? None Information not available 04/08/2023 Mental Status None recorded. Family History Nothing Reported. Medical History No medical history recorded. Gynecological HistoryNo gynecological history recorded. Obstetrics History GPAL:G 0 P 0 0 0 0 Immunizations Vaccine Type Date Status Note Provider Nam e and Address Organization Details Recorded Time Influenza, split virus, trivalent, preservative 2 completed GHADA martell [facility] 04/08/2023 12:42:47 Influenza, split virus, trivalent, preservative 0 completed Not Available [facility] 01/26/2023 02:51:21 Influenza, split virus, trivalent, preservative 2 [facility] 04/08/2023 12:42:47 Influenza, split virus, trivalent, preservative 2 completed GHADA martell, [facility] 04/08/2023 12:42:47 Influenza, split virus, trivalent, preservative 8 completed [facility] 04/08/2023 12:42:47 Influenza, split virus, trivalent, preservative 4 completed [facility] 04/08/2023 12:42:47 Influenza, split virus, trivalent, preservative 9 completed [facility] 04/08/2023 12:42:47 Influenza, split virus, trivalent, preservative 7 completed [facility] 04/08/2023 12:42:47 Influenza, adjuvanted, trivalent, PF 5 completed [facility] 04/07/2025 12:18:29 Influenza, high-dose, quadrivalent, PF 2 completed [facility] 04/08/2023 12:42:47 Influenza, high-dose, trivalent, PF 8 completed [facility] 04/08/2023 12:42:47 Influenza, high-dose, trivalent, PF 9 completed GHADA martell [facility] 04/08/2023 12:42:47 Influenza, split virus, trivalent, preservative 1 completed GHADA martell [facility] 04/08/2023 12:42:47 Influenza, high-dose, quadrivalent, PF 3 completed Not Available [facility] 04/26/2025 15:44:29 Influenza, high-dose, trivalent, PF 4 completed Not Available [facility] 04/26/2025 15:44:29 Past Encounters Encounter ID Performer Location Encounter Start Date Encounter Closed Date Diagnosis/Indication Diagnosis SNOMED-CT Code Diagnosis ICD10 Code Diagnosis IMO Codes Diagnosis Note [id number] Abbe Maguire MD [facility] ([facility]) [address] [place] [address] 04/07/2025 11:23:10 04/13/2025 10:06:54 Essential hypertension 87941489 I10 Requires i nfluenza virus vaccination 554917743 Z23 334053 [id number] Abbe Maguire MD [facility] ([facility]) [address] [place] [id number] 04/26/2025 15:34:56 04/27/2025 11:24:18 Preventive procedure 181985712 Z00.00 71459433 - Conducted routine wellness visit with emphasis on dietary habits and exercise. - Educated on preventive health focusing on diet modificati on and fall prevention strategies . Memory impairment 955716 006 R41.3 - Addressed memory function with understand ing of current capabiliti es. - Observatio n for changes and reinforcem ent of healthy lifestyle as preventive measures. Health Concerns Section Related Observation LastModified by Organization Detai ls LastModified Time None Recorded Concern Status LastModified by Organization Details LastModified Time None Recorded Payers Encounter Date Sequence Insurance Name Policy Number Policy Sebastian Covered Member ID Sebastian Member ID Guarantor Name 04/26/2025 1 [employer] (MEDICARE REPLACEMENT/A DVANTAGE - HMO) [id number] Sole [place] Cheryl [id number] Sole A Cheryl Notes Date Note Type Note Provider Name and Address Organization Details Recorded Time 5 text/html Medicare Annual Wellness VisitReported by [...] difficulty with fine manipulative tasks, andno difficulty writing/copying.Functiona l AbilityFor instrumental activities of daily living, patient [...] such as meal preparation. Abbe Maguire MD [address] [place] [address], [phone], [facility] 04/26/2025 18:59:42 OBGyn Episode No OBEpisode recorded.
--- OUTSIDE RECORDS SUMMARY | 2025-06-14 11:40 | XMS_ITS | Continuity of Care Document ---
Author Organization [place] - [facility] Brenda, LMagdiLSadia, [facility] ([facility]) Address [address] [facility] [facility] [place] [address] Care Team Providers Care Hot Kettle Tender Name Role Phone ABBE NORRIS Primary Care Provider [phone] Assessment Encounter Date Assessment Date Assessment LastModified by Organization Details LastModified Time 04/07/2025 04/07/2025 - 84 year old female [...] future option. [email or web address] Not available 04/07/2025 12:26:47 Plan of Treatment Reminders Order Date Submit Date Provider Last Modified By Organization Details Last Modified Time Details Appointments OFFICE VISIT 20 2025 10:00A M Abbe Norris MD Not available Not available Not available Lab None recorded. Referral None recorded. Procedures None recorded. Surgeries None recorded. Imaging None recorded. Medication Orders lisinopri l 20 mg-hydroc hlorothia zide 25 mg tablet 2024 025 [facility], [address], [place], [address], 04/07/2025 22:20:01 Patient TargetsNo targets recorded. Patient Instructions Encounter Date Encounter Id Patient Instructions Last Modified By Organization Details Last Modified Time 04/07/2025 [id number] - Continue griselda herron your blood pressure [...] alleviate discomfort. [email or web address] Not available 04/07/2025 12:26:50 Reason for Referral None Reported. Problems Name Problem SNOMED Code Status Onset Date Resolution Date Notes Provider Name and Address Organization Details Recorded Time Venous stasis 87231241 Active 2021 venous stasis disease; with venous ulcers; 06/11/20 10:39AM by Ghada Pires RN, Office Visit; Promoted ; acuity set as *; GHADA martell [facility] 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 5 14:19:58 Colonosco py Completed 202109/23/2024 Colonosc opy; 03/11/[address] [facility] by Dr. Norris ; 06/11/20 10:39AM by Ghada Pires, RN, Office Visit; Promoted ; acuity set as *; GHADA martell [facility] 14:19:48 Benign essential hypertens ion 5353422 Active 2021 Hyperten roger; 06/11/20 10:39AM by Ghada Pires, RN, Office Visit; Promoted ; acuity set as *; GHADA martell [facility] 14:19:39 History of tubal ligation 225420717 Completed 202109/23/2024 Tubal Ligation ; 06/11/20 10:39AM by Ghada Pires RN, Office Visit; Promoted ; acuity set as *; GHADA martell [facility] 5 14:20:08 Osteoarth ritis 965710691 Active 2021 osteoart hritis; 06/11/20 10:39AM by Ghada Pires RN, Office Visit; Promoted ; acuity set as *; GHADA martell [facility] 5 14:20:25 Hypothyro idism 29043090 Active 2022 GHADA martell [facility] 5 14:20:10 Anemia 163492620 Active 2022 GHADA martell [facility] 5 14:19:36 Chronic pain 33914402 Active 2023 GHADA martell [facility] 5 14:19:43 Periphera l vascular disease 260149456 Active 2023 GHADAHERMILO HANKINSY [facility] 5 14:20:30 Fracture of pelvis 02351288 Active 2024 GHADAHERMILO HANKINSY [facility] 5 14:20:03 Fracture of multiple pubic rami 954581460 Active 2024 GHADA HAMBY [facility] 5 14:20:01 Lives in residential 352254985 Completed 202409/23/2024 GHADA HAMBY [facility] 5 14:20:18 Dementia 23909339 Active 2024 GHADA PIERS [facility] 5 14:19:52 Myelodysp lastic syndrome (clinical ) 562411993 Active 2024 GHADA SHERRY [facility] 5 14:20:22 Celluliti s of face 829104786 Active 2024 SUDHAKAR ALBERTO [facility] 5 16:02:21 Problem Notes None recorded. Procedures Surgical History Date Name Laterality Status Provider Name and Address Organization Details Recorded Time 2023 Colonoscopy completed GHADA SHERRY [facility] 4 18:25:04 2023 esophagogastroduodenoscopy completed SABRAPRESTON MARQUIS PIRES [facility] 4 18:27:03 Imaging Results None recorded. Procedure Notes None recorded. Medical Equipment None Reported. Allergies Allergen ID Allergen Name Allergen Category Reaction Reaction Severity Criticality Documentation Date Start Date Code Code System Note Provider Name and Address Organization Details Recorded Time 04842 terbinafi ne medicatio n rash Not available Not available 01/26/2023 81594 RxNorm React ion: Rash; Comme nt: Recor ded 06/11 10:39 AM by Pradip Pires RN, Offic e Visit ; Promo leslie; Signi ficlianna ce: *; Reaso n: Drug aller gy; ; Not Available [facility] 3 02:23:25 71417 codeine medicatio n Not available Not available Not available 01/26/2023 2670 RxNorm Comme nt: Recor ded 06/11 10:39 AM by Pradip Pires RN, Offic e Visit ; Promo leslie; Signi ficlianna ce: *; ; Not Available [facility] 3 02:23:27 16230 Del-Mycin medicatio n Not available Not available Not available 01/26/2023 51983 8 RxNorm Comme nt: Recor ded 06/11 10:39 AM by Pradip Pires RN, Offic e Visit ; Promo leslie; Signi fican ce: *; ; Not Available [facility] 3 02:23:27 58022 Zithromax medicatio n Not available Not available Not available 01/26/2023 75845 4 RxNorm Comme nt: Recor ded 06/11 10:39 AM by Pradip Pires RN, Offic e Visit ; Promo leslie; Signi fican ce: *; ; Not Available [facility] 3 02:23:27 83254 sulfameth oxazole / trimethop rim medicatio n Not available Not available Not available 01/26/2023 91315 RxNorm Comme nt: Recor ded 06/11 10:39 AM by Pradip Pires RN, Offic e Visit ; Promo leslie; Signi fican ce: *; ; Not Available [facility] 3 02:23:27 23748 Keflex medicatio n Not available Not available Not available 01/26/2023 68951 7 RxNorm Comme nt: Recor ded 06/11 10:39 AM by Pradip Pires RN, Offic e Visit ; Promo leslie; Sara mcgovern ce: *; ; Not Available [facility] 3 02:23:27 31150 Product containin g penicilli n (product) medicatio n Not available Not available Not available 01/26/2023 97385 8001 SNOMED Comme nt: Recor ded 06/11 10:39 AM by Pradip Pires RN, Offic e Visit ; Aron nelson; Sara mcgovern ce: *; ; Not Available [facility] 3 02:23:27 28344 Substance with sulfonami de structure and antibacte rial mechanism of action (substanc e) medicatio n Not available Not available Not available 01/26/2023 86416 8003 SNOMED Comme nt: Recor ded 06/11 10:39 AM by Pradip Pires RN, Offic e Visit ; Aron nelson; Sara mcgovern ce: *; ; Not Available [facility] 3 02:23:27 51661 cefoxitin medicatio n Not available Not available Not available 01/26/2023 2189 RxNorm Comme nt: Recor ded 06/11 10:39 AM by Pradip Pires RN, Offic e Visit ; Aron nelson; Sara mcgovern ce: *; ; Not Available [facility] 3 02:23:27 Medications Name Sig Start [...] active Recorded 12/13/19 18 11:11AM by Abbe Norris MD, Office Visit; Refill Quantity : 60; [...] 0; Recorded 06/11/20 22 10:39AM by Ghada Pires, RN, Office Visit; Not Available Not Available Not Available meloxicam QD 02/22 completed Disregar d prescrip tion for meloxica m; Recorded 06/11/20 11:40AM by Abbe Norris MD, Office Visit; Refill Quantity : 100; Tablet; Not Available Not Available Not Available Flonase QD per nostril prn 02/22 completed vo JR/tn; 173; Recorded 12/13/19 18 10:33AM by Ghada Pires RN (Authori zed through Abbe Norris MD), Office Visit; Refill Quantity : 1; Bottle; Not Available Not Available Not Available lisinopri l-hydroch lorothiaz luanne QD 02/22 completed Recorded 06/11/20 11:37AM by Abbe Norris MD, Office Visit; Refill Quantity : 100; Tablet; Not Available Not Available Not Available pentoxify lline TID 02/22 completed vo JR/tn; 173; Recorded 08/15/19 23 4:29PM by Sudhakar leary (Authori zed through Abbe Norris MD), Refill Request; Mail Order Quantity : 270 Tablet; Refill Quantity : 120; Tablet; Not Available Not Available Not Available hydrocort isone BID prn 02/22 completed Recorded 12/03/19 21 10:58AM by Ruben Guevara, Office Visit; Refill Quantity : 60; Gram; Not Available Not Available Not Available [facility] Levothyro xine Sodium QD 02/22 completed Recorded 06/11/20 22 6:24PM by Abbe Norris MD, Office Visit; Refill Quantity : 100; Tablet; Not Available Not Available Not Available donepezil daily at bedtime 02/22 completed Recorded 06/11/20 22 11:39AM by Abbe Norris MD, Office Visit; Refill Quantity : 100; Tablet; Not Available Not Available Not Available Acetamino phen W/Codeine 1/2-1 Q 6 hours, as needed 02/22 completed Recorded 09/09/19 23 1:32PM by Abbe Norris MD, Refill Request; Refill Quantity : 0; [...] and Address Organization Details Last Updated DateTime 160.02 cm 24.6 kg/m2 09404.0 4 g 98 % 82 /min 18 /min 98.7 [degF] 118/60 mm[Hg] SUDHAKAR ALBERTO [facility] 11:45:19 Social History Question Answer Notes LastModified by [facility] Details LastModified Time Tobacco Smoking Status Never Smoker SUDHAKAR martell [facility] 02/22/2023 14:57:57 What Was The Date Of Your Most Recent Tobacco Screening? 11/30/2024 Information not available 11/30/2024 What Is Your Relationship Status? Information not available 02/22/2023 Sex: Unknown Functional Status Question Answer Note LastModified by [employer] [facility] Details LastModified Time Do you use any illicit or recreational drugs? No [place] [id number] Information not available 04/08/2023 Do you or have you ever used any other forms of tobacco or nicotine? [facility] Information not available 04/08/2023 What is your level of alcohol consumption? None [place] [address] Information not available 04/08/2023 Mental Status None recorded. Family History Nothing Reported. Medical History No medical history recorded. Gynecological HistoryNo gynecological history recorded. Obstetrics History GPAL:G 0 P 0 0 0 0 Immunizations Vaccine Type Date Status Note Provider Nam e and Address Organization Details Recorded Time Influenza, split virus, trivalent, preservative 2 completed GHADA martell [facility] 04/08/2023 12:42:47 Influenza, split virus, trivalent, preservative 0 completed Not Available [facility] 01/26/2023 02:51:21 Influenza, split virus, trivalent, preservative 2 completed GHADA martell [facility] 04/08/2023 12:42:47 Influenza, split virus, trivalent, preservative 2 completed GHADA martell [facility] 04/08/2023 12:42:47 Influenza, split virus, trivalent, preservative 8 completed GHADA martell [facility] 04/08/2023 12:42:47 Influenza, split virus, trivalent, preservative 4 completed GHADA martell [facility] 04/08/2023 12:42:47 Influenza, split virus, trivalent, preservative 9 completed GHADA martell [facility] 04/08/2023 12:42:47 Influenza, split virus, trivalent, preservative 7 completed GHADA martell [facility] 04/08/2023 12:42:47 Influenza, adjuvanted, trivalent, PF 5 completed SUDHAKAR martell, [facility] 04/07/2025 12:18:29 Influenza, high-dose, quadrivalent, PF 2 completed GHADA martell, [facility] 04/08/2023 12:42:47 Influenza, high-dose, trivalent, PF 8 completed GHADA PIRES null, [facility] 04/08/2023 12:42:47 Influenza, high-dose, trivalent, PF 9 completed GHADA PIRES null, [facility] 04/08/2023 12:42:47 Influenza, split virus, trivalent, preservative 1 completed GHADA PIRES null, [facility] 04/08/2023 12:42:47 Influenza, high-dose, quadrivalent, PF 3 completed Not Available [facility] 04/26/2025 15:44:29 Influenza, high-dose, trivalent, PF 4 completed Not Available [facility] 04/26/2025 15:44:29 Past Encounters Encounter ID Performer Location Encounter Start Date Encounter Closed Date Diagnosis/Indication Diagnosis SNOMED-CT Code Diagnosis ICD10 Code Diagnosis IMO Codes Diagnosis Note [id number] Abbe Norris MD [facility] ([facility]) [address] [place] [address] 04/07/2025 11:23:10 04/13/2025 10:06:54 Essential hypertension 00851094 I10 Requires i nfluenza virus vaccination 208541514 Z23 746255 Health Concerns Section Related Observation LastModified by Organization Detai ls LastModified Time None Recorded Concern Status LastModified by Organization Details LastModified Time None Recorded Payers Encounter Date Sequence Insurance Name Policy Number Policy Sebastian Covered Member ID Sebastian Member ID Guarantor Name 04/07/2025 1 [facility] (MEDICARE REPLACEMENT/A DVANTAGE - HMO) [id number] Sole A Cheryl [id number] Sole Maulik Cheryl Notes Date Note Type Note Provider Name and Address Organization Details Recorded Time 5 text/html Hypertension F/UReported by PatientHPIFor medications, [...] Expressed reluctance to receive COVID vaccination. Abbe Norris MD [address] [place] [address], [id number], [facility] 04/10/2025 23:38:25 OBGyn Episode No OBEpisode recorded.
--- OUTSIDE RECORDS SUMMARY | 2025-06-14 11:40 | XMS_ITS | Continuity of Care Document ---
Author Organization [facility], [facility] ([facility]) Address [address] [place] [address] Care Team Providers Care Entry Level Name Role Phone ABBE MAGUIRE Primary Care Provider [phone] Assessment No assessment recorded. Plan of Treatment Reminders Order Date Submit Date Provider Last Modified By Organization Details Last Modified Time Details Appointments OFFICE VISIT 20 2025 10:00A M Abbe Maguire MD Not available Not available Not available Lab thyrotro pin, QN, serum or plasma 2024 025 [facility], [address], [place], [address], 04/28/2025 10:51:45 CBC 2024 025 [facility], [address], [place], [address], 04/28/2025 10:08:45 CMP, serum or plasma 2024 025 [facility], [address], [place], [address], 04/28/2025 10:44:02 lipid panel, blood 2024 025 [facility], [address], [place], [address], 04/28/2025 10:44:05 Referral None recorded . Procedures None recorded . Surgeries None recorded . Imaging None recorded . Medication Orders None recorded . Patient TargetsNo targets recorded. Patient InstructionsNo instructions recorded. Reason for Referral None Reported. Results Created Date Observation Date Name Description Value Unit Range Abnormal Flag Note LastModifiedBy Organization Detail LastModifiedTime 04/28/2004/28/2025 CBC WBC 5.1 x10 4.0-10 .5 Not Available [facility] [address] [facility] [address], [place], [address], 04/28/2025 10:08:45 04/28/2004/28/2025 CBC RBC 2.69 x10 3.50-5 .50 low Not Available [facility] [address] [facility] [facility] 1, [place], [address], 04/28/2025 10:08:45 04/28/2004/28/2025 CBC HGB 8.5 g/dL 12.0-1 6.0 low Not Available [facility] [address] [facility] [address], [place], [address], 04/28/2025 10:08:45 04/28/2004/28/2025 CBC HCT 27.0 % 37.0-4 7.0 low Not Available [facility] [address] [facility] 1, [place], [address], 04/28/2025 10:08:45 04/28/2004/28/2025 CBC MCV 100.4 fL 80.0-9 9.9 high Not Available [facility] [address] [facility] 1, [place], [address], 04/28/2025 10:08:45 04/28/2004/28/2025 CBC MCH 31.4 pg 27.0-3 2.0 Not Available [facility] [address] [facility] 1, [place], [address], 04/28/2025 10:08:45 04/28/2004/28/2025 CBC MCHC 31.3 g/dL 32.0-3 6.0 low Not Available [facility] [address] [facility] [address], [place], [address], 04/28/2025 10:08:45 04/28/2004/28/2025 CBC RDW 24.1 % 11.5-1 4.5 high Not Available [facility] [address] [facility] [address], [place], [address], 04/28/2025 10:08:45 04/28/2004/28/2025 CBC plt 384.2 x10 140.0- 451.0 Not Available [facility] [address] [facility] [address], [place], [address], 04/28/2025 10:08:45 04/28/2004/28/2025 CBC lymphocytes % 35.6 % 20.0-5 0.0 Not Available [facility] [address] [facility] [address], [place], [address], 04/28/2025 10:08:45 04/28/2004/28/2025 CBC granulcytes % 50.8 % 30.0-7 0.0 Not Available [facility] [address] [facility] [address], [place], [address], 04/28/2025 10:08:45 04/28/2004/28/2025 CBC monocytes % 9.7 % 2.0-16 .0 Not Available [facility] [address] [facility] [address], [place], [address], 04/28/2025 10:08:45 04/28/20 25 04/28/2025 CBC granulcytes# 2.6 x10 Not Cindy ilable [facility] [address] [facility] [address], [place], [address], 04/28/2025 10:08:45 04/28/20 25 04/28/2025 CBC lymphocytes # 1.8 x10 Not Available [facility] [address] [address], [place], [address], 04/28/2025 10:08:45 04/28/20 25 04/28/2025 CBC monocytes # 0.5 x10 Not [facility] [address] [address], [place], [address], 04/28/2025 10:08:45 04/28/2004/28/2025 CMP (FEMA LE) glucose 138.0 mg/dL 60.0-9 9.0 high Not Available [facility] [address] [address], [place], [address], 04/28/2025 10:44:02 04/28/20 25 04/28/2025 CMP (FEMA LE) BUN (blood urea nitrogen) 23.0 mg/dL 10.0-2 6.0 Not Available [facility] [address] [address], [place], [address], 04/28/2025 10:44:02 04/28/2004/28/2025 CMP (FEMA LE) creatinine (serum) 1.2 mg/dL 0.4-1. 5 Not Available [facility] [address] [address], [place], [address], 04/28/2025 10:44:02 04/28/2004/28/2025 CMP (FEMA LE) BUN/creatini ne ratio 19.17 ratio Not Available [facility] [address] [address], [place], [address], 04/28/2025 10:44:02 04/28/20 25 04/28/2025 CMP (FEMA LE) eGFR calculated 45.6 Not Available [facility] [address] [facility] 1, [place], [address], 04/28/2025 10:44:02 04/28/2004/28/2025 CMP (FEMA LE) total protein 7.3 g/dL 6.0-8. 5 Not Available [facility] [address] [facility], [place], [address], 04/28/2025 10:44:02 04/28/2004/28/2025 CMP (FEMA LE) total bilirubin 0.9 mg/dL 0.2-1. 3 Not Available [facility] [address] [facility], [place], [address], 04/28/2025 10:44:02 04/28/2004/28/2025 CMP (FEMA LE) albumin 4.2 g/dL 3.5-5. 5 Not Available [facility] [address] [facility], [place], [address], 04/28/2025 10:44:02 04/28/2004/28/2025 CMP (FEMA LE) globulin 3.1 calc Not Available [facility] [address] [facility], [place], [address], 04/28/2025 10:44:02 04/28/2004/28/2025 CMP (FEMA LE) AST (SGOT) 22.0 U/L 0.0-46 .0 Not Available [facility] [address] [facility] [address] [facility] 1, [place], [address], 04/28/2025 10:44:02 04/28/2004/28/2025 CMP (FEMA LE) altv (SGPT) 12.0 U/L 13.0-6 9.0 abnormal Not Available [facility] [address] [facility] 1, [place], [address], 04/28/2025 10:44:02 04/28/2004/28/2025 CMP (FEMA LE) A/G ratio 1.4 ratio Not Available [facility] [address] [facility] 1, [place], [address], 04/28/2025 10:44:02 04/28/20 25 04/28/2025 CMP (FEMA LE) ALP phos 79.0 U/L 30.0-1 40.0 normal Not Available [facility] [address] [facility] 1, [place], [address], 04/28/2025 10:44:02 04/28/20 25 04/28/2025 CMP (FEMA LE) calcium 9.4 mg/dL 8.4-10 .5 Not Available [facility] [address] [facility], [place], [address], 04/28/2025 10:44:02 04/28/2004/28/2025 CMP (FEMA LE) sodium 139.0 mmol/ L 136.0- 145.0 Not Available [facility] [address] [facility], [place], [address], 04/28/2025 10:44:02 04/28/20 25 04/28/2025 CMP (FEMA LE) potassium 4.2 mmol/ L 3.5-5. 1 Not Available [facility] [address] [facility] 1, [place], [address], 04/28/2025 10:44:02 04/28/20 25 04/28/2025 CMP (FEMA LE) chloride 108.0 mmol/ L 98.0-1 10.0 normal Not Available [facility] [address] [facility] 1, [place], [address], 04/28/2025 10:44:02 04/28/20 25 04/28/2025 CMP (FEMA LE) C02 23.0 mmol/ L 22.0-3 1.0 Not Available [facility] [address] [facility] [address], [place], [address], 04/28/2025 10:44:02 04/28/2004/28/2025 CMP (FEMA LE) anion gap 8.0 calc Not Available [facility] [address] [facility] [address], [place], [address], 04/28/2025 10:44:02 04/28/2004/28/2025 CMP (FEMA LE) osmolality 292.6 calc Not Available [facility] [address] [facility] [address], [place], [address], 04/28/2025 10:44:02 04/28/20 25 04/28/2025 LIPID PROFI LE (FEMA LE) cholesterol 170.0 mg/dL 0.0-20 0.0 Not Available [facility] [address] [facility] [address], [place], [address], 04/28/2025 10:44:05 04/28/20 25 04/28/2025 LIPID PROFI LE (FEMA LE) trig 79.0 mg/dL 0.0-15 0.0 Not Available [facility] [address] [facility] [address], [place], [address], 04/28/2025 10:44:05 04/28/20 25 04/28/2025 LIPID PROFI LE (FEMA LE) HDL - direct 66.0 mg/dL >40.0 Not Available [facility] [address] [facility] [address], [place], [address], 04/28/2025 10:44:05 04/28/20 25 04/28/2025 LIPID PROFI LE (FEMA LE) VLDL - direct 15.8 mg/dL Not Available [facility] [address] [facility] [address], [place], [address], 04/28/2025 10:44:05 04/28/20 25 04/28/2025 LIPID PROFI LE (FEMA LE) LDL - direct 88.2 mg/dL 0.0-13 0.0 Not Available [facility] [address] [facility] [address], [place], [address], 04/28/2025 10:44:05 04/28/2004/28/2025 TSH TSH 1.23 uIU/m L 0.49-3 .82 Not Available [facility] [address] [facility] [address], [place], [address], 04/28/2025 10:51:45 Result Notes None recorded. Problems Name Problem SNOMED Code Status Onset Date Resolution Date Notes Provider Name and Address Organization Details Recorded Time Venous stasis 95178202 Active 2021 venous stasis disease; with venous ulcers; 06/11/20 10:39AM by Ghada Pires RN, Office Visit; Promoted ; acuity set as *; GHADA martell [facility] 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 5 14:19:58 Colonosco py Completed 202109/23/2024 Colonosc opy; 03/11/09 @ [facility] [place] by Dr. Maguire ; 06/11/20 10:39AM by Ghada Pires RN, Office Visit; Promoted ; acuity set as *; GHADA martell [facility] 03/26/202 5 14:19:48 Benign essential hypertens ion 3253569 Active 2021 Hyperten roger; 06/11/20 10:39AM by Ghada Pires, RN, Office Visit; Promoted ; acuity set as *; GHADA [facility]ell [facility] 5 14:19:39 History of tubal ligation 380660900 Completed 202109/23/2024 Tubal Ligation ; 06/11/20 10:39AM by Ghada Pires RN, Office Visit; Promoted ; acuity set as *; GHADA martell [facility] 5 14:20:08 Osteoarth ritis 882000884 Active 2021 osteoart hritis; 06/11/20 10:39AM by Ghada Pires RN, Office Visit; Promoted ; acuity set as *; GHADA martell [facility] 5 14:20:25 Hypothyro idism 22386023 Active 2022 GHADA PIRES [facility] 5 14:20:10 Anemia 958079004 Active 2022 GHADA martell [facility] 5 14:19:36 Chronic pain 28392743 [facility] 2023 [facility] 5 14:19:43 Periphera l vascular disease 707857883 Active 2023 GHADA martell [facility] 5 14:20:30 Fracture of pelvis 70804028 Active 2024 GHADA martell [facility] 5 14:20:03 Fracture of multiple pubic rami 337286353 Active [address] [facility] 5 14:20:01 Lives in half-way 016457371 Completed 202409/23/[address] [facility] 5 14:20:18 Dementia 18369522 Active 2024 GHADAHERMILO PIRES [facility] 5 14:19:52 Myelodysp lastic syndrome (clinical ) 854363429 Active 2024 GHADAHERMILO HANKINSY [facility] 5 14:20:22 Celluliti s of face 808126694 Active 2024 SUDHAKAR ALBERTO [facility] 5 16:02:21 Problem Notes None recorded. Procedures Surgical History Date Name Laterality Status Provider Name and Address Organization Details Recorded Time 2023 Colonoscopy completed GHADAHERMILO HANKINSY [facility] 4 18:25:04 2023 esophagogastroduodenoscopy completed VINH PIRES [facility] 4 18:27:03 Imaging Results None recorded. Procedure Notes None recorded. Medical Equipment None Reported. Allergies Allergen ID Allergen Name Allergen Category Reaction Reaction Severity Criticality Documentation Date Start Date Code Code System Note Provider Name and Address Organization Details Recorded Time 62248 terbinafi ne medicatio n rash Not available Not available 01/26/2023 70036 RxNorm React ion: Rash; Comme nt: Recor ded 06/11 10:39 AM by Vinh Pires RN, Offic e Visit ; Promo leslie; Signi fican ce: *; Reaso n: Drug aller gy; ; Not Available [facility] 3 02:23:25 01365 codeine medicatio n Not available Not available Not available 01/26/2023 2670 RxNorm Comme nt: Recor ded 06/11 10:39 AM by Vinh Pires RN, Offic e Visit ; Promo leslie; Signi fican ce: *; ; Not Available [facility] 3 02:23:27 76734 Del-Mycin medicatio n Not available Not available Not available 01/26/2023 40474 8 RxNorm Comme nt: Recor ded 06/11 10:39 AM by Vinh Pires RN, Offic e Visit ; Promo leslie; Signi fican ce: *; ; Not Available [facility] 3 02:23:27 46727 Zithromax medicatio n Not available Not available Not available 01/26/2023 87271 4 RxNorm Comme nt: Recor ded 06/11 10:39 AM by Vinh Pires RN, Offic e Visit ; Promo leslie; Signi fican ce: *; ; Not Available [facility] 3 02:23:27 17905 sulfameth oxazole / trimethop rim medicatio n Not available Not available Not available 01/26/2023 67120 RxNorm Comme nt: Recor ded 06/11 10:39 AM by Vinh Pires RN, Offic e Visit ; Promo leslie; Signi fican ce: *; ; Not Available [facility] 3 02:23:27 31848 Keflex medicatio n Not available Not available Not available 01/26/2023 26345 7 RxNorm Comme nt: Recor ded 06/11 10:39 AM by Vinh Pires RN, Offic e Visit ; Promo leslie; Signi fican ce: *; ; Not Available [facility] 3 02:23:27 16642 Product containin g penicilli n (product) medicatio n Not available Not available Not available 01/26/2023 15277 8001 SNOMED Comme nt: Recor ded 06/11 10:39 AM by Vinh Pires RN, Offic e Visit ; Promo leslie; Sara mcgovern ce: *; ; Not Available [facility] 3 02:23:27 65091 Substance with sulfonami de structure and antibacte rial mechanism of action (substanc e) medicatio n Not available Not available Not available 01/26/2023 43016 8003 SNOMED Comme nt: Recor ded 06/11 10:39 AM by Vinh Pires RN, Offic e Visit ; Promo leslie; Sara mcgovern ce: *; ; Not Available [facility] 3 02:23:27 47212 cefoxitin medicatio n Not available Not available Not available 01/26/2023 2189 RxNorm Comme nt: Recor ded 06/11 10:39 AM by Vinh Pires RN, Offic e Visit ; Aron nelson; Sara mcgovern ce: *; ; Not Available [facility] 3 02:23:27 Medications Name Sig Start Date [...] 0; Recorded 06/11/20 22 10:39AM by Ghada A. Pranay, RN, Office Visit; Not Available Not Available Not Available meloxicam QD 02/22 completed Disregar d prescrip tion for meloxica m; Recorded 06/11/20 22 11:40AM by Abbe Maguire MD, Office Visit; Refill Quantity : 100; Tablet; Not Available Not Available Not Available Flonase QD per nostril prn 02/22 completed vo JR/tn; 173; Recorded 12/13/19 18 10:33AM by Ghada Pires, RN (Authori israel through Abbe Maguire MD), [...] 08/15/19 23 4:29PM by Sudhakar leary (Authori israel through Abbe Maguire MD), Refill Request; Mail [...] Available Not Available Not Avai lable Vitals None Recorded Social History Question Answer Notes LastModified by Organizat ion Details LastModified Time Tobacco Smoking Status Never Smoker SUDHAKAR martell [facility] 02/22/2023 14:57:57 What Was The Date Of Your Most Recent Tobacco Screening? 11/30/2024 Information not available 11/30/2024 What Is Your Relationship Status? Information not available 02/22/2023 Sex: Unknown Functional Status Question Answer Note LastModified by Organizat ion Details LastModified Time Do you use [...] virus, trivalent, preservative 2 completed GHADA martell [facility] 04/08/2023 12:42:47 Influenza, split virus, trivalent, preservative 0 completed Not Available [facility] 01/26/2023 02:51:21 Influenza, split virus, trivalent, preservative 2 completed GHADA PIRES null, [facility] 04/08/2023 12:42:47 Influenza, split virus, trivalent, preservative 2 completed GHADA PIRES null, [facility] 04/08/2023 12:42:47 Influenza, split virus, trivalent, preservative 8 completed [facility] 04/08/2023 12:42:47 Influenza, split virus, trivalent, preservative 4 completed [facility] 04/08/2023 12:42:47 Influenza, split virus, trivalent, preservative 9 completed [facility] 04/08/2023 12:42:47 Influenza, split virus, trivalent, preservative 7 completed [facility] 04/08/2023 12:42:47 Influenza, adjuvanted, trivalent, PF 5 completed SUDHAKAR martell, [facility] 04/07/2025 12:18:29 Influenza, high-dose, quadrivalent, PF 2 completed [facility] 04/08/2023 12:42:47 Influenza, high-dose, trivalent, PF 8 completed [facility] 04/08/2023 12:42:47 Influenza, high-dose, trivalent, PF 9 completed GHADA PIRES jasbir, [facility] 04/08/2023 12:42:47 Influenza, split virus, trivalent, preservative 1 completed GHADA martell [facility] 04/08/2023 12:42:47 Influenza, high-dose, quadrivalent, PF 3 completed Not Available [facility] 04/26/2025 15:44:29 Influenza, high-dose, trivalent, PF 4 completed Not Available [facility] 04/26/2025 15:44:29 Past Encounters Encounter ID Performer Location Encounter Start Date Encounter Closed Date Diagnosis/Indication Diagnosis SNOMED-CT Code Diagnosis ICD10 Code Diagnosis IMO Codes Diagnosis Note [id number] Abbe Maguire MD [facility] ([facility]) [address] [place] [id number] 04/07/2025 11:23:10 04/13/2025 10:06:54 Essential hypertension 29631761 I10 Requires i nfluenza virus vaccination 893416670 Z23 786885 [id number] Abbe Maguire MD [facility] ([facility]) [address] [place] [phone] [id number] 04/26/2025 15:34:56 04/27/2025 11:24:18 Preventive procedure 871873671 Z00.00 88455236 - Conducted routine wellness visit with emphasis on dietary habits and exercise. - Educated on preventive health focusing on diet modificati on and fall prevention strategies . Memory impairment 051997 006 R41.3 - Addressed memory function with understand ing of current capabiliti es. - Observatio n for changes and reinforcem ent of healthy lifestyle as preventive measures. [id number] Abbe Maguire MD [facility] ([facility]) [address] [place] [address] [phone] 04/28/2025 09:38:07 04/29/2025 11:59:01 Benign essential hypertension 2282258 I10 Hypothyroidism 52431012 E03.9 Anemia 445715439 D64.9 Health Concerns Section Related Observation LastModified by Organization Detai ls LastModified Time None Recorded Concern Status LastModified by Organization Details LastModified Time None Recorded Payers Encounter Date Sequence Insurance Name Policy Number Policy Sebastian Covered Member ID Sebastian Member ID Guarantor Name 04/28/2025 1 [facility] (MEDICARE REPLACEMENT/A DVANTAGE - HMO) [id number] Sole Luna [id number] Sole Luna OBGyn Episode No OBEpisode recorded.
== END 2025-06-14 12:26 | disposition home or self-care (01) ==
PROVIDERS: Emergency Provider Physician Assistant; PCP Family Medicine
DX: S32.010A Wedge compression fracture of first lumbar vertebra, initial encounter for closed fracture (principal); I10 Essential (primary) hypertension; X58.XXXA Exposure to other specified factors, initial encounter
CPT/HCPCS: 72100; 96372; 99284; J2270; J2405

== ENCOUNTER → 2025-06-17 13:53 | Outpatient (BNVA) | payer MEDICARE, SELFPAY | PROVIDERS: PCP Family Medicine; Visit Provider Orthopaedic Surgery | DX: S32.010A Wedge compression fracture of first lumbar vertebra, initial encounter for closed fracture (principal); S32.810A Multiple fractures of pelvis with stable disruption of pelvic ring, initial encounter for closed fracture; W19.XXXA Unspecified fall, initial encounter | CPT/HCPCS: 72100; 99213 ==

== ENCOUNTER 2025-06-22 12:54 | Oncology outpatient (recurring) (ONCR) | payer MEDICARE, SELFPAY ==
[2025-06-22 13:18] LABS: Hematocrit 30.2 % (36-47); Hemoglobin 9.60 g/dL (11.27-16.99); Mean Corpuscular HGB Conc 31.8 g/dL (30-55); Mean Corpuscular Hemoglobin 30.3 pg (27-33); Mean Corpuscular Volume 95.3 fl (85-98); Nucleated Red Blood Cells % 0.6 %; Platelet Count 399 10^3/cmm (157-399); Red Blood Count 3.17 10^6/uL (3.85-5.65); White Blood Count 14.31 10^3/uL (3.29-11.43)
[2025-06-22 13:36] LABS: Alanine Aminotransferase 7 U/L (0-33); Albumin Level 4.2 g/dL (3.5-5.2); Alkaline Phosphatase 77 U/L (35-105); Anion Gap 17.2 (5-19); Aspartate Amino Transferase 11 U/L (0-32); Blood Urea Nitrogen 36 mg/dL (8-23); Calcium 8.8 mg/dL (8.5-10.5); Carbon Dioxide 21 mmol/L (22-29); Chloride 103 mmol/L (98-107); Globulin 2.7 g/dL (1.3-4.6); Glucose 172 mg/dL (65-115); Osmolality Calculated 294 mOsm/kg (285-295); Potassium 5.2 mmol/L (3.5-5.1); Sodium 136 mmol/L (136-145); Total Protein 6.9 g/dL (6.6-8.7)
[2025-06-22] MEDS: luspatercept-aamt 75 mg 63.5 MG SUBCUT (14:37)
== END 2025-06-22 23:59 | disposition home or self-care (01) ==
PROVIDERS: Internal Medicine; PCP Family Medicine; Visit Provider Nurse Practitioner Family
DX: D46.Z Other myelodysplastic syndromes (principal); Z15.89 Genetic susceptibility to other disease; Z15.09 Genetic susceptibility to other malignant neoplasm; Z79.899 Other long term (current) drug therapy
CPT/HCPCS: 80053; 85025; 96372; 99213; J0896

== ENCOUNTER 2025-06-25 14:22 | Outpatient (CLI) | payer MEDICARE, SELFPAY ==
--- NOTE | 2025-06-25 14:30 | MRR_ITS ---
PROCEDURE INFORMATION: Exam: MR Lumbar Spine Without Contrast Exam date and time: 06/25/2025 2:53 PM Age: 84 years old Clinical indication: Injury or trauma; Fracture, traumatic injury; Not specified; Injury details: Multiple falls over several months, comp FX; Additional info: Fracture of the pelvis TECHNIQUE: Imaging protocol: Magnetic resonance imaging of the lumbar spine without contrast. COMPARISON: CR XR lumbar spine 2-3V* [id number] 06/17/2025 1:55 PM FINDINGS: Bones/joints: On the emergency room registered nurse images, there is 6 mm anterolisthesis of C3 on C4 and 5 mm anterolisthesis of C4 on C5 with severe stenosis of the spinal canal from C3 through C5 with kinking of the cervical spinal cord and abnormal signal in the cervical spinal cord concerning for myelopathy. There is a chronic appearing anterior wedging fracture T6 without critical stenosis. Several small disc bulges are noted in the thoracic spine without critical stenosis. There is levoscoliosis of the lumbar spine with severe degenerative changes. There is a acute/subacute 2 column fracture of T12 with bony edema, infiltration of the marrow fat in fluid along the superior endplate suggesting disease with 3 mm retropulsed bone and no critical stenosis. There a burst fracture of L1 with severe height loss, retropulsed bone measuring 6 mm and mild bone edema compatible with a subacute fracture. There is a chronic appearing anterior wedging fracture of L2 with 3 mm retropulsed bone superior endplate but no critical stenosis. There is severe disc space narrowing with endplate degenerative changes and exuberant osteophytes in the lumbar spine. Spinal cord: No cord edema in the thoracolumbar spine however there is concern for abnormal signal in the cervical spine on the emergency room registered nurse images. T12-L1: At T12-L1, there is a small disc osteophyte complex retropulsed bone resulting in mild narrowing of the spinal canal and moderate left foraminal narrowing but no critical stenosis. L1-L2: L1-L2, there is left paracentral and far left lateral disc osteophyte complex/retropulsed bone resulting in severe far lateral foraminal narrowing and moderate to severe central canal stenosis with mild flattening of the thecal sac and the conus. L2-L3: At L2-L3, there is a left paracentral disc protrusion with annular fissure resulting in severe stenosis of the left central spinal canal left foramina and far left lateral recess accentuated by facet and ligamentum flavum hypertrophy. L3-L4: At L3-L4, there is a central disc bulge with moderate narrowing of the central canal moderate to severe right foraminal narrowing mostly due to endplate and facet hypertrophy. L4-L5: At L4-L5, there is a small broad-based disc bulge but no critical stenosis. L5-S1: At L5-S1, there is a left paracentral disc protrusion with severe narrowing of the far left lateral recess accentuated by facet hypertrophy. Soft tissues: Unremarkable. MR/MR lumbar spine wo con* [id number] IMPRESSION: 1. On the emergency room registered nurse images, there is 6 mm anterolisthesis of C3 on C4 and 5 mm anterolisthesis of C4 on C5 with severe stenosis of the spinal canal from C3 through C5 with kinking of the cervical spinal cord and abnormal signal in the cervical spinal cord concerning for myelopathy. MRI of the cervical spine is recommended for further evaluation. 2. 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 This fracture is new compared to the lumbar spine plain film of June 14, 2025. 3. There a subacute burst fracture of L1 with severe height loss, retropulsed bone measuring 6 mm and mild bone edema. This is unchanged compared to the plain films of June 14, 2025. Unchanged chronic fracture of L2 compared to the prior CT scan and July 13, 2024. 4. L1-L2, there is left paracentral and far left lateral disc osteophyte complex/retropulsed bone resulting in severe far lateral foraminal narrowing and moderate to severe central canal stenosis with mild flattening of the thecal sac and the conus. 5. At L2-L3, there is a left paracentral disc protrusion with annular fissure resulting in severe stenosis of the left central spinal canal left foramina and far left lateral recess accentuated by facet and ligamentum flavum hypertrophy. 6. At L5-S1, there is a left paracentral disc protrusion with severe narrowing of the far left lateral recess accentuated by facet hypertrophy.
== END 2025-06-25 14:23 | disposition home or self-care (01) ==
LOC: RAD 14:23
PROVIDERS: PCP Family Medicine; Visit Provider Orthopaedic Surgery
DX: S32.010A Wedge compression fracture of first lumbar vertebra, initial encounter for closed fracture (principal); S32.810A Multiple fractures of pelvis with stable disruption of pelvic ring, initial encounter for closed fracture; X58.XXXA Exposure to other specified factors, initial encounter
CPT/HCPCS: 72148

== ENCOUNTER → 2025-06-28 13:57 | Outpatient (BNVA) | payer MEDICARE, SELFPAY | PROVIDERS: PCP Family Medicine; Visit Provider Podiatrist Foot & Ankle Surgery | DX: L60.8 Other nail disorders (principal); I73.9 Peripheral vascular disease, unspecified; L60.2 Onychogryphosis | CPT/HCPCS: 11721 ==